=== PATIENT | male | born 1960 | race Asian ===

== ENCOUNTER 2024-04-06 15:41 | Outpatient (AMB) | payer OTHER, SELFPAY ==
--- NOTE | 2024-04-06 15:59 | HO.NEPHOV_ITS ---
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 He had seen oncologist in [facility] as well as in [facility] and [facility] in [place]. He has been getting daratumumab. He has had various investigations including cardiac MRI which was suggestive of early amyloidosis but with preserved biventricular function by echo and cardiac MRI. He was evaluated for stem cell transplant but has been put on hold for now. He has noted a decrease in exercise capacity through the course of his treatment with chemotherapy. He was started on lisinopril by his system admin. He had no regional wall motion abnormalities. His left ventricular ejection fraction was 60-65%. His left ventricular systolic function and right ventricular systolic f unction was normal. His left atrium was mildly dilated. There was mild dilation of the ascending aorta measuring 39 mm in the tubular section which may be normal for patient's height. He underwent a renal biopsy which showed renal amyloidosis, AL type, lambda phenotype. Diffuse amyloid deposits in glomeruli and renal arteries/ arterioles and focally in interstitium. Global glomerulosclerosis was present in 15% of total glomeruli. He had mild to moderate interstitial fibrosis and tubular atrophy. Electron microscopy showed normal based membrane. There was global effacement of foot process. Endothelial fenestration were preserved. Mesangial matrix was expanded by mildly electron dense material showing randomly arranged fibrillary substructure. Multiple measurements of the fibril widths average to 7.5 nanometer was consistent with amyloid. He had nephrotic range proteinuria. He did not have any neuropathy. He was treated with Luanne CyBord per Andromeda study. His Cytoxan dose was reduced by 20% for fatigue and anemia. His Velcade was held for question of neuropathy/ myopathy. His stem cell collection was done at [facility]( Dr Gonzalez). He had proximal myopathy and underwent skeletal muscle biopsy which showed amyloid. He had been having anemia and receives Retacrit on a regular basis. He is feeling better compared to 6 months ago. He denies any chest pain, shortness of breath, paroxysmal nocturnal dyspnea, orthopnea, pedal edema or urinary symptoms. He also had COVID infection a while ago.. His last kappa lambda ratio was 1.66. His urine protein creatinine ratio had improved to 0.16 from over 2 g. He is concerned about his reduced GFR under the same time he feels content with stability of his creatinine clearance. [facility] Medical History (Updated 04/08/24 @ 08:24 by Yves Navarrete MD) Cervical spondylosis without myelopathy Neuropathic pain Sciatica Thalassanemia Vitamin D deficiency Anemia Hallux valgus History of tear of ACL (anterior cruciate ligament) Osteoarthritis of both knees Venous insufficiency Hyperlipidemia Edema Upper respiratory tract infection Surgical History (Updated 04/06/24 @ 16:05 by Cassie Cody MA) H/O repair of rotator cuff History of knee surgery Social History (Updated 04/06/24 @ 16:06 by Cassie Cody MA) Alcohol intake: never Patient Tobacco Use Status: Never used Tobacco Review of Systems Const All systems reviewed & are unremarkable except as noted in HPI and below Physical Exam Vital Signs: Last Vital Signs Pulse 65 04/06/24 16:01 BP 140/90 H 04/06/24 16:01 Pulse Ox 99 04/06/24 16:01 Oxygen Delivery Method Room Air 04/06/24 16:01 BMI result Body Mass Index 25.2 Const General: comfortable and no acute distress Orientation/consciousness: patient oriented x3 HEENT Head: Yes normocephalic Mouth: Normal oral and palatal mucosa present Eyes EOM: EOMs intact bilaterally Neck Neck: Yes supple Resp Auscultation: clear to auscultation bilaterally Cardio Jugular venous distension: no JVD Rate: regular rate GI Palpation (GI): Soft to palpation Auscultation: normal bowel sounds General: Yes no CVA tenderness Back/Spine/Pelvis Back: no CVA tenderness Skin General skin exam: no rashes or lesions noted Neuro General: patient oriented x3 and moves all extremities Extrem General: Yes no pedal edema Results Reviewed Nephrology Results: 2 No Data to Display Assessment & Plan Assessment & Plan (1) AL amyloid nephropathy: Code(s): E85.4 - Organ-limited amyloidosis; N08 - Glomerular disorders in diseases classified elsewhere Category: Medical (2) CKD (chronic kidney disease) stage 3, GFR 30-59 ml/min: Code(s): N18.30 - Chronic kidney disease, stage 3 unspecified Category: Medical Qualifiers: Chronic kidney disease stage 3 subtype: stage 3b (GFR 30-44) Qualified Code(s): N18.32 - Chronic kidney disease, stage 3b (3) Anemia in chronic kidney disease (CKD): Code(s): N18.9 - Chronic kidney disease, unspecified; D63.1 - Anemia in chronic kidney d isease Category: Medical Qualifiers: Chronic kidney disease stage: stage 3 (moderate) Chronic kidney disease stage 3 subtype: stage 3b (GFR 30-44) Qualified Code(s): N18.32 - Chronic kidney disease, stage 3b; D63.1 - Anemia in chronic kidney disease Plan He has CKD due to renal biopsy proven AL amyloid (lambda phenotype) . He has been getting daratumumab. He was evaluated for stem cell transplant but has been put on hold for now. His stem cell collection was done at [facility]( Dr Gonzalez). He is on lisinopril which I asked him to continue at the current dose. He had no regional wall motion abnormalities in the ECHO. His left ventricular ejection fraction was 60-65%. His left ventricular systolic function and right ventricular systolic function was normal. ( Renal biopsy showed Diffuse amyloid deposits in glomeruli and renal arteries/ arterioles and focally in interstitium. Global glomerulosclerosis was present in 15% of total glomeruli. He had mild to moderate interstitial fibrosis and tubular atrophy. Electron microscopy showed normal based membrane. There was global effacement of foot process. Endothelial fenestration were preserved. Mesangial matrix was expanded by mildly electron dense material showing randomly arranged fibrillary substructure. Multiple measurements of the fibril widths average to 7.5 nanometer was consistent with amyloid). He had nephrotic range proteinuria which has improved with supportive management. (He was treated with Luanne CyBord per Andromeda study. His Cytoxan dose was reduced by 20% for fatigue and anemia. His Velcade was held for question of neuropathy/ myopathy). He had proximal myopathy and underwent skeletal muscle biopsy which showed amyloid. He had been having anemia and receives Retacrit on a regular basis from his oncologist. I did not make any medication changes today. I shall do a 24 hour urine collection for creatinine clearance after next visit. All these have been explained in detail. Time spent retrieving data from various hospitals patient encounter and documentation 61 minutes. Answered all questions & follow-up appointment was given Coding Level of Care Code New Pt Level 5 (36142) Diagnoses AL amyloid nephropathy E85.4; N08 Stage 3b chronic kidney disease N18.32 Chronic kidney disease stage 3 subtype: stage 3b (GFR 30-44) Anemia in stage 3b chronic kidney disease N18.32; D63.1 Chronic kidney disease stage: stage 3 (moderate) Chronic kidney disease stage 3 subtype: stage 3b (GFR 30-44)
[2024-04-06 16:01] VITALS: BP 140/90; PULSE 65; O2SAT 99; BMI 25.2
== END 2024-04-06 17:03 | disposition home or self-care (01) ==
PROVIDERS: PCP Internal Medicine; Visit Provider Internal Medicine Nephrology
DX: E85.4 Organ-limited amyloidosis (principal); N08 Glomerular disorders in diseases classified elsewhere; N18.32 Chronic kidney disease, stage 3b; D63.1 Anemia in chronic kidney disease
CPT/HCPCS: 99205

== ENCOUNTER → 2024-04-06 15:41 | Outpatient (BNVA) | payer OTHER, SELFPAY | PROVIDERS: PCP Internal Medicine; Visit Provider Internal Medicine Nephrology ==

== ENCOUNTER 2024-07-06 13:50 | Outpatient (AMB) | payer OTHER, SELFPAY ==
[2024-07-06 13:55] VITALS: BP 168/90; PULSE 68; O2SAT 99; BMI 25.4
--- NOTE | 2024-07-06 13:55 | HO.NEPHOV_ITS ---
Vital Signs 07/06/24 13:55 Height 6 ft Weight 187 lb BMI 25.4 BP 168/90 H Blood Pressure Location Lt brachial Position Sitting Pulse 68 Pulse Source Pulse Oximeter Pulse Oximetry (%) 99 Oxygen Delivery Method Room Air Intake Visit Reasons: 3 mon follow up- [place] [employer] Required: No Accompanied by: Self / Same As Patient Allergies bacitracin Allergy (Verified 07/06/24 13:57) Unknown olopatadine Allergy (Verified 07/06/24 13:57) Unknown potassium dichromate Allergy (Uncoded 04/05/24 14:55) Unknown HPI Comments Details: I had the privilege of seeing Alo in follow up for his kidney involvement with AL amyloidosis. He had seen oncologist in [facility] as well as in [facility] and [facility] in [place]. He has been getting daratumumab. He has had various investigations including cardiac MRI which was suggestive of early amyloidosis but with preserved biventricular function by echo and cardiac MRI. He was evaluated for stem cell transplant but has been put on hold for now. He has noted a decrease in exercise capacity through the course of his treatment with chemotherapy. 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 He had no regional wall motion abnormalities. His left ventricular ejection fraction was 60-65%. His left ventricular systolic function and right ventricular systolic function was normal. His left atrium was mildly dilated. There was mild dilation of the ascending aorta measuring 39 mm in the tubular section which may be normal for patient's height. He underwent a renal biopsy which showed renal amyloidosis, AL type, lambda phenotype. Diffuse amyloid deposits in glomeruli and renal arteries/ arterioles and focally in interstitium. Global glomerulosclerosis was present in 15% of total glomeruli. He had mild to moderate interstitial fibrosis and tubular atrophy. Electron microscopy showed normal based membrane. There was global effacement of foot process. Endothelial fenestration were preserved. Mesangial matrix was expanded by mildly electron dense material showing randomly arranged fibrillary substructu re. Multiple measurements of the fibril widths average to 7.5 nanometer was consistent with amyloid. He had nephrotic range proteinuria. He did not have any neuropathy. He was treated with Luanne CyBord per Andromeda study. His Cytoxan dose was reduced by 20% for fatigue and anemia. His Velcade was held for question of neuropathy/ myopathy. His stem cell collection was done at [facility]( Dr Gonzalez). He had proximal myopathy and underwent skeletal muscle biopsy which showed amyloid. He had been having anemia and receives Retacrit on a regular basis. He is feeling better compared to 6 months ago. He denies any chest pain, shortness of breath, paroxysmal nocturnal dyspnea, orthopnea, pedal edema or urinary symptoms. He also had COVID infection a while ago.. His last kappa lambda ratio was 1.66. His urine protein creatinine ratio had improved to 0.16 from over 2 g. His creatinine has been stable. His Na has been fluctuant. [facility] Medical History (Updated 07/06/24 @ 14:23 by Yves Navarrete MD) Cervical spondylosis without myelopathy Neuropathic pain Sciatica Thalassanemia Vitamin D deficiency Anemia Hallux valgus History of tear of ACL (anterior cruciate ligament) Osteoarthritis of both knees Venous insufficiency Hyperlipidemia Edema Upper respiratory tract infection Surgical History H/O repair of rotator cuff History of knee surgery Social History Alcohol intake: never Patient Tobacco Use Status: Never used Tobacco Physical Exam Vital Signs: Last Vital Signs Pulse 68 07/06/24 13:55 BP 168/90 H 07/06/24 13:55 Pulse Ox 99 07/06/24 13:55 Oxygen Delivery Method Room Air 07/06/24 13:55 BMI result Body Mass Index 25.4 Const General: comfortable and no acute distress Orientation/consciousness: patient oriented x3 HEENT Head: Yes normocephalic Mouth: Normal oral and palatal mucosa present Eyes EOM: EOMs intact bilaterally Neck Neck: Yes supple Resp Auscultation: clear to auscultation bilaterally Cardio Jugular venous distension: no JVD Rate: regular rate GI Palpation (GI): Soft to palpation Auscultation: normal bowel sounds General: Yes no CVA tenderness Back/Spine/Pelvis Back: no CVA tenderness Skin General skin exam: no rashes or lesions noted Neuro General: patient oriented x3 and moves all extremities Extrem General: Yes no pedal edema Results Reviewed Nephrology Results: No Data to Display Assessment & Plan Assessment & Plan (1) CKD (chronic kidney disease) stage 3, GFR 30-59 ml/min: Code(s): N18.30 - Chronic kidney disease, stage 3 unspecified Category: Medical Qualifiers: Chronic kidney disease stage 3 subtype: stage 3b (GFR 30-44) Qualified Code(s): N18.32 - Chronic kidney disease, stage 3b (2) Anemia in chronic kidney disease (CKD): Code(s): N18.9 - Chronic kidney disease, unspecified; D63.1 - Anemia in chronic kidney disease Category: Medical Qualifiers: Chronic kidney disease stage: stage 3 (moderate) Chronic kidney disease stage 3 subtype: stage 3b (GFR 30-44) Qualified Code(s): N18.32 - Chronic kidney disease, stage 3b; D63.1 - Anemia in chronic kidney disease (3) AL amyloid nephropathy: Code(s): E85.4 - Organ-limited amyloidosis; N08 - Glomerular disorders in diseases classified elsewhere Category: Medical (4) Hypertension: Code(s): I10 - Essential (primary) hypertension Category: Medical Qualifiers: Hypertension type: primary hypertension Qualified Code(s): I10 - Essential (primary) hypertension Plan He has CKD due to renal biopsy proven AL amyloid (lambda phenotype) . He has been getting daratumumab. He was evaluated for stem cell transplant but has been put on hold for now. His stem cell collection was done at [facility]( Dr Gonzalez). He is on lisinopril which I asked him to continue at the current dose. He had no regional wall motion abnormalities in the ECHO. His left ventricular ejection fraction was 60-65%. His left ventricular systolic function and right ventricular systolic function was normal. ( Renal biopsy showed Diffuse amyloid deposits in glomeruli and renal arteries/ arterioles and focally in interstitium. Global glomerulosclerosis was present in 15% of total glomeruli. He had mild to moderate interstitial fibrosis and tubular atrophy. Electron microscopy showed normal based membrane. There was global effacement of foot process. Endothelial fenestration were preserved. Mesangial matrix was expanded by mildly electron dense material showing randomly arranged fibrillary substructure. Multiple measurements of the fibril widths average to 7.5 nanometer was consistent with amyloid). He had nephrotic range proteinuria which has improved with supportive management. (He was treated with Luanne CyBord per Andromeda study. His Cytoxan dose was reduced by 20% for fatigue and anemia. His Velcade was held for question of neuropathy/ myopathy). He had proximal myopathy and underwent skeletal muscle biopsy which showed amyloid. He had been having anemia and receives Retacrit on a regular basis from his oncologist. I increased his lisinopril to 15 mg daily. I shall do a 24 hour urine collection for creatinine clearance after next visit. All these have been explained in detail. Answered all questions & follow-up appointment was given Orders: Orders Creatinine Today D63.1 - Anemia in chronic kidney disease, E85.4 - Organ- limited amyloidosis, I10 - Essential (primary) hypertension, N08 - Glomerular disorders in diseases classified elsewhere, N18.32 - Chronic kidney disease, stage 3b Blood Urea Nitrogen Today D63.1 - Anemia in chronic kidney disease, E85.4 - Organ-limited amyloidosis, I10 - Essential (primary) hypertension, N08 - Glomerular disorders in diseases classified elsewhere, N18.32 - Chronic kidney disease, stage 3b Electrolytes Today D63.1 - Anemia in chronic kidney disease, E85.4 - Organ- limited amyloidosis, I10 - Essential (primary) hypertension, N08 - Glomerular disorders in diseases classified elsewhere, N18.32 - Chronic kidney disease, stage 3b Medications: Changed From lisinopril 5 mg PO DAILY To lisinopril 15 mg (3 x 5 mg) PO DAILY 90 tabs 3RF Coding Level of Care Code Est Pt Level 4 (27793) Diagnoses Stage 3b chronic kidney disease N18.32 Chronic kidney disease stage 3 subtype: stage 3b (GFR 30-44) Anemia in stage 3b chronic kidney disease N18.32; D63.1 Chronic kidney disease stage: stage 3 (moderate) Chronic kidney disease stage 3 subtype: stage 3b (GFR 30-44) AL amyloid nephropathy E85.4; N08 Primary hypertension I10 Hypertension type: primary hypertension
== END 2024-07-06 14:29 | disposition home or self-care (01) ==
PROVIDERS: PCP Internal Medicine; Visit Provider Internal Medicine Nephrology
DX: N18.32 Chronic kidney disease, stage 3b (principal); D63.1 Anemia in chronic kidney disease; E85.4 Organ-limited amyloidosis; N08 Glomerular disorders in diseases classified elsewhere; I10 Essential (primary) hypertension
CPT/HCPCS: 99214

== ENCOUNTER → 2024-07-06 13:50 | Outpatient (BNVA) | payer OTHER, SELFPAY | PROVIDERS: PCP Internal Medicine; Visit Provider Internal Medicine Nephrology ==

== ENCOUNTER 2024-08-24 13:59 | Outpatient (AMB) | payer OTHER, SELFPAY ==
--- NOTE | 2024-08-24 14:26 | HO.NEPHOV_ITS ---
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 He had seen oncologist in [facility] as well as in [facility] and [facility] in [place]. He has been getting daratumumab. He has had various investigations including cardiac MRI which was suggestive of early amyloidosis but with preserved biventricular function by echo and cardiac MRI. He was evaluated for stem cell transplant but has been put on hold for now. He has noted a decrease in exercise capacity through the course of his treatment with chemotherapy. He was started on lisinopril by his mechanical engineering manager. He had no regional wall motion abnormalities. His left ventricular ejection fraction was 60-65%. His left ventricular systolic function and right ventricular systolic function was normal. His left atrium was mildly dilated. There was mild dilation of the ascending aorta measuring 39 mm in the tubular section which may be normal for patient's height. He underwent a renal biopsy which showed renal amyloidosis, AL type, lambda phenotype. Diffuse amyloid deposits in glomeruli and renal arteries/ arterioles and focally in interstitium. Global glomerulosclerosis was present in 15% of total glomeruli. He had mild to moderate interstitial fibrosis and tubular atrophy. Electron microscopy showed normal based membrane. There was global effacement of foot process. Endothelial fenestration were preserved. Mesangial matrix was expanded by mildly electron dense material showing randomly arranged fibrillary substructure. Multiple measurements of the fibril widths average to 7.5 nanometer was consistent with amyloid. He had nephrotic range proteinuria. He did not have any neuropathy. He was treated with Luanne CyBord per Andromeda study. His Cytoxan dose was reduced by 20% for fatigue and anemia. His Velcade was held for question of neuropathy/ myopathy. His stem cell collection was done at [facility]( Dr Gonzalez). He had proximal myopathy and underwent skeletal muscle biopsy which showed amyloid. He had been having anemia and receives Retacrit on a regular basis. He is feeling better compared to 6 months ago. He denies any chest pain, shortness of breath, paroxysmal nocturnal dyspnea, orthopnea, pedal edema or urinary symptoms. He also had COVID infection a while ago.. His last kappa lambda ratio was 1.66. His urine protein creatinine ratio had improved to 0.16 from over 2 g. His creatinine has been stable. His Na has been fluctuant. [facility] Medical History (Updated 07/06/24 @ 14:23 by Yves Navarrete MD) Cervical spondylosis without myelopathy Neuropathic pain Sciatica Thalassanemia Vitamin D deficiency Anemia Hallux valgus History of tear of ACL (anterior cruciate ligament) Osteoarthritis of both knees Venous insufficiency Hyperlipidemia Edema Upper respiratory tract infection Surgical History H/O repair of rotator cuff History of knee surgery Social History Alcohol intake: never Patient Tobacco Use Status: Never used Tobacco Review of Systems Const All systems reviewed & are unremarkable except as noted in HPI and below Physical Exam Vital Signs: Last Vital Signs Pulse 70 08/24/24 14:27 BP 140/78 H 08/24/24 14:27 Pulse Ox 99 08/24/24 14:27 Oxygen Delivery Method Room Air 08/24/24 14:27 BMI result Body Mass Index 25.0 Const General: comfortable and no acute distress Orientation/consciousness: patient oriented x3 HEENT Head: Yes normocephalic Mouth: Normal oral and palatal mucosa present Eyes EOM: EOMs intact bilaterally Neck Neck: Yes supple Resp Auscultation: clear to auscultation bilaterally Cardio Jugular venous distension: no JVD Rate: regular rate GI Palpation (GI): Soft to palpation Auscultation: normal bowel sounds General: Yes no CVA tenderness Back/Spine/Pelvis Back: no CVA tenderness Skin General skin exam: no rashes or lesions noted Neuro General: patient oriented x3 and moves all extremities Extrem General: Yes no pedal edema Results Reviewed Nephrology Results: No Data to Display Assessment & Plan Assessment & Plan (1) CKD (chronic kidney disease) stage 3, GFR 30-59 ml/min: Code(s): N18.30 - Chronic kidney disease, stage 3 unspecified Category: Medical Qualifiers: Chronic kidney disease stage 3 subtype: stage 3b (GFR 30-44) Qualified Code(s): N18.32 - Chronic kidney disease, stage 3b (2) AL amyloid nephropathy: Code(s): E85.4 - Organ-limited amyloidosis; N08 - Glomerular disorders in diseases classified elsewhere Category: Medical (3) Anemia in chronic kidney disease (CKD): Code(s): N18.9 - Chronic kidney disease, unspecified; D63.1 - Anemia in chronic kidney disease Category: Medical Qualifiers: Chronic kidney disease stage: stage 3 (moderate) Chronic kidney disease stage 3 subtype: stage 3b (GFR 30-44) Qualified Code(s): N18.32 - Chronic kidney disease, stage 3b; D63.1 - Anemia in chronic kidney disease (4) Hypertension: Code(s): I10 - Essential (primary) hypertension Category: Medical Qualifiers: Hypertension type: primary hypertension Qualified Code(s): I10 - Essential (primary) hypertension Plan He has CKD due to renal biopsy proven AL amyloid (lambda phenotype) . He has been getting daratumumab. He was evaluated for stem cell transplant but has been put on hold for now. His stem cell collection was done at [facility]( Dr Gonzalez). He is on lisinopril which I asked him to continue at the current dose. He had no regional wall motion abnormalities in the ECHO. His left ventricular ejection fraction was 60-65%. His left ventricular systolic function and right ventricular systolic function was normal. ( Renal biopsy showed Diffuse amyloid deposits in glomeruli and renal arteries/ arterioles and focally in interstitium. Global glomerulosclerosis was present in 15% of total glomeruli. He had mild to moderate interstitial fibrosis and tubular atrophy. Electron microscopy showed normal based membrane. There was global effacement of foot process. Endothelial fenestration were preserved. Mesangial matrix was expanded by mildly electron dense material showing randomly arranged fibrillary substructure. Multiple measurements of the fibril widths average to 7.5 nanometer was consistent with amyloid). He had nephrotic range proteinuria which has improved with supportive management. (He was treated with Luanne CyBord per Andromeda study. His Cytoxan dose was reduced by 20% for fatigue and anemia. His Velcade was held for question of neuropathy/ myopathy). He had proximal myopathy and underwent skeletal muscle biopsy which showed amyloid. He had been having anemia and receives Retacrit on a regular basis from his oncologist. He should continue lisinopril 15 mg daily. He is a candidate for [facility]. I shall do a 24 hour urine collection for creatinine clearance after next visit. All these have been explained in detail. Answered all questions & follow-up appointment was given Orders: Orders Blood Urea Nitrogen 3 Months D63.1 - Anemia in chronic kidney disease, E85.4 - Organ-limited amyloidosis, I10 - Essential (primary) hypertension, N08 - Glomerular disorders in diseases classified elsewhere, N18.32 - Chronic kidney disease, stage 3b Electrolytes 3 Months D63.1 - Anemia in chronic kidney disease, E85.4 - Organ- limited amyloidosis, I10 - Essential (primary) hypertension, N08 - Glomerular disorders in diseases classified elsewhere, N18.32 - Chronic kidney disease, stage 3b Calcium 3 Months D63.1 - Anemia in chronic kidney disease, E85.4 - Organ- limited amyloidosis, I10 - Essential (primary) hypertension, N08 - Glomerular disorders in diseases classified elsewhere, N18.32 - Chronic kidney disease, stage 3b Creatinine 3 Months D63.1 - Anemia in chronic kidney disease, E85.4 - Organ- limited amyloidosis, I10 - Essential (primary) hypertension, N08 - Glomerular disorders in diseases classified elsewhere, N18.32 - Chronic kidney disease, stage 3b Coding Level of Care Code Est Pt Level 4 (02055) Diagnoses Stage 3b chronic kidney disease N18.32 Chronic kidney disease stage 3 subtype: stage 3b (GFR 30-44) AL amyloid nephropathy E85.4; N08 Anemia in stage 3b chronic kidney disease N18.32; D63.1 Chronic kidney disease stage: stage 3 (moderate) Chronic kidney disease stage 3 subtype: stage 3b (GFR 30-44) Primary hypertension I10 Hypertension type: primary hypertension
[2024-08-24 14:27] VITALS: BP 140/78; PULSE 70; O2SAT 99; BMI 25.0
== END 2024-08-24 15:00 | disposition home or self-care (01) ==
LOC: HO.HKAS 14:00
PROVIDERS: PCP Internal Medicine; Visit Provider Internal Medicine Nephrology
DX: N18.32 Chronic kidney disease, stage 3b (principal); E85.4 Organ-limited amyloidosis; N08 Glomerular disorders in diseases classified elsewhere; D63.1 Anemia in chronic kidney disease; I10 Essential (primary) hypertension
CPT/HCPCS: 99214

== ENCOUNTER → 2024-08-24 13:59 | Outpatient (BNVA) | payer OTHER, SELFPAY | PROVIDERS: PCP Internal Medicine; Visit Provider Internal Medicine Nephrology ==

== ENCOUNTER 2024-11-30 13:26 | Outpatient (AMB) | payer OTHER, SELFPAY ==
--- NOTE | 2024-11-30 13:28 | HO.NEPHOV_ITS ---
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 He had seen oncologist in [facility] as well as in [facility] and [facility] in [place]. He has been getting daratumumab. He has had various investigations including cardiac MRI which was suggestive of early amyloidosis but with preserved biventricular function by echo and cardiac MRI. He was evaluated for stem cell transplant but has been put on hold for now. He has noted a decrease in exercise capacity through the course of his treatment with chemotherapy. He has been on lisinopril started by his hub associate. He had no regional wall motion abnormalities. His left ventricular ejection fraction was 60-65%. His left ventricular systolic function and right ventricular systolic function was normal. His left atrium was mildly dilated. There was mild dilation of the ascending aorta measuring 39 mm in the tubular section which may be normal for patient's height. He underwent a renal biopsy which showed renal amyloidosis, AL type, lambda phenotype. Diffuse amyloid deposits in glomeruli and renal arteries/ arterioles and focally in interstitium. Global glomerulosclerosis was present in 15% of total glomeruli. He had mild to moderate interstitial fibrosis and tubular atrophy. Electron microscopy showed normal based membrane. There was global effacement of foot process. Endothelial fenestration were preserved. Mesangial matrix was expanded by mildly electron dense material showing randomly arranged fibrillary substructure. Multiple measurements of the fibril widths average to 7.5 nanometer was consistent with amyloid. He had nephrotic range proteinuria. He did not have any neuropathy. He was treated with Luanne CyBord per Andromeda study. His Cytoxan dose was reduced by 20% for fatigue and anemia. His Velcade was held for question of neuropathy/ myopathy. His stem cell collection was done at [facility]( Dr Gonzalez). He had proximal myopathy and underwent skeletal muscle biopsy which showed amyloid. He had been having anemia and receives Retacrit on a regular basis. He is feeling better compared to 6 months ago. He denies any chest pain, shortness of breath, paroxysmal nocturnal dyspnea, orthopnea, pedal edema or urinary symptoms. He also had COVID infection a while ago.. His last kappa lambda ratio was 1.66. His urine protein creatinine ratio had improved to 0.16 from over 2 g. His creatinine has been stable. His Na has been fluctuant. [facility] Medical History (Updated 11/30/24 @ 13:30 by Yves Navarrete MD) Cervical spondylosis without myelopathy Neuropathic pain Sciatica Thalassanemia Vitamin D deficiency Anemia Hallux valgus History of tear of ACL (anterior cruciate ligament) Osteoarthritis of both knees Venous insufficiency Hyperlipidemia Edema Upper respiratory tract infection Surgical History H/O repair of rotator cuff History of knee surgery Social History Alcohol intake: never Patient Tobacco Use Status: Never used Tobacco Review of Systems Const All systems reviewed & are unremarkable except as noted in HPI and below Physical Exam Const General: comfortable and no acute distress Orientation/consciousness: patient oriented x3 HEENT Head: Yes normocephalic Mouth: Normal oral and palatal mucosa present Eyes EOM: EOMs intact bilaterally Neck Neck: Yes supple Resp Auscultation: clear to auscultation bilaterally Cardio Jugular venous distension: no JVD Rate: regular rate GI Palpation (GI): Soft to palpation Auscultation: normal bowel sounds General: Yes no CVA tenderness Back/Spine/Pelvis Back: no CVA tenderness Skin General skin exam: no rashes or lesions noted Neuro General: patient oriented x3 and moves all extremities Extrem General: Yes no pedal edema Results Reviewed Nephrology Results: No Data to Display Assessment & Plan Assessment & Plan (1) CKD (chronic kidney disease) stage 3, GFR 30-59 ml/min: Code(s): N18.30 - Chronic kidney disease, stage 3 unspecified Category: Medical Qualifiers: Chronic kidney disease stage 3 subtype: stage 3b (GFR 30-44) Qualified Code(s): N18.32 - Chronic kidney disease, stage 3b (2) AL amyloid nephropathy: Code(s): E85.4 - Organ-limited amyloidosis; N08 - Glomerular disorders in diseases classified elsewhere Category: Medical (3) Anemia in chronic kidney disease (CKD): Code(s): N18.9 - Chronic kidney disease, unspecified; D63.1 - Anemia in chronic kidney disease Category: Medical Qualifiers: Chronic kidney disease stage: stage 3 (moderate) Chronic kidney disease stage 3 subtype: stage 3b (GFR 30-44) Qualified Code(s): N18.32 - Chronic kidney disease, stage 3b; D63.1 - Anemia in chronic kidney disease (4) Hypertension: Code(s): I10 - Essential (primary) hypertension Category: Medical Qualifiers: Hypertension type: primary hypertension Qualified Code(s): I10 - Essential (primary) hypertension (5) Hyponatremia: Code(s): E87.1 - Hypo-osmolality and hyponatremia Category: Medical Plan He has CKD due to renal biopsy proven AL amyloid (lambda phenotype) . He has been getting daratumumab. He was evaluated for stem cell transplant but has been put on hold for now. His stem cell collection was done at [facility]( Dr Gonzalez). He is on lisinopril which I asked him to continue at the current dose. He had no regional wall motion abnormalities in the ECHO. His left missy tricular ejection fraction was 60-65%. His left ventricular systolic function and right ventricular systolic function was normal. ( Renal biopsy showed Diffuse amyloid deposits in glomeruli and renal arteries/ arterioles and focally in interstitium. Global glomerulosclerosis was present in 15% of total glomeruli. He had mild to moderate interstitial fibrosis and tubular atrophy. Electron microscopy showed normal based membrane. There was global effacement of foot process. Endothelial fenestration were preserved. Mesangial matrix was expanded by mildly electron dense material showing randomly arranged fibrillary substructure. Multiple measurements of the fibril widths average to 7.5 nanometer was consistent with amyloid). He had nephrotic range proteinuria which has improved with supportive management. (He was treated with Luanne CyBord per Andromeda study. His Cytoxan dose was reduced by 20% for fatigue and anemia. His Velcade was held for question of neuropathy/ myopathy). He had proximal myopathy and underwent skeletal muscle biopsy which showed amyloid. He had been having anemia and receives Retacrit on a regular basis from his oncologist. He should continue lisinopril 15 mg daily. He is a candidate for [employer]. I shall do a 24 hour urine collection for creatinine clearance before next visit. All these have been explained in detail. Answered all questions & f ollow-up appointment was given Orders: Orders Creatinine 1 Month D63.1 - Anemia in chronic kidney disease, E85.4 - Organ- limited amyloidosis, E87.1 - Hypo-osmolality and hyponatremia, I10 - Essential (primary) hypertension, N08 - Glomerular disorders in diseases classified elsewhere, N18.32 - Chronic kidney disease, stage 3b Electrolytes 1 Month D63.1 - Anemia in chronic kidney disease, E85.4 - Organ- limited amyloidosis, E87.1 - Hypo-osmolality and hyponatremia, I10 - Essential (primary) hypertension, N08 - Glomerular disorders in diseases classified elsewhere, N18.32 - Chronic kidney disease, stage 3b Creatinine 2 Months D63.1 - Anemia in chronic kidney disease, E85.4 - Organ- limited amyloidosis, E87.1 - Hypo-osmolality and hyponatremia, I10 - Essential (primary) hypertension, N08 - Glomerular disorders in diseases classified elsewhere, N18.32 - Chronic kidney disease, stage 3b Electrolytes 2 Months D63.1 - Anemia in chronic kidney disease, E85.4 - Organ- limited amyloidosis, E87.1 - Hypo-osmolality and hyponatremia, I10 - Essential (primary) hypertension, N08 - Glomerular disorders in diseases classified elsewhere, N18.32 - Chronic kidney disease, stage 3b Electrolytes 3 Months D63.1 - Anemia in chronic kidney disease, E85.4 - Organ- limited amyloidosis, E87.1 - Hypo-osmolality and hyponatremia, I10 - Essential (primary) hypertension, N08 - Glomerular disorders in diseases classified elsewhere, N18.32 - Chronic kidney disease, stage 3b Creatinine 3 Months D63.1 - Anemia in chronic kidney disease, E85.4 - Organ- limited amyloidosis, E87.1 - Hypo-osmolality and hyponatremia, I10 - Essential (primary) hypertension, N08 - Glomerular disorders in diseases classified elsewhere, N18.32 - Chronic kidney disease, stage 3b Creatinine Clearance Urine 24U 3 Months N18.32 - Chronic kidney disease, stage 3b Blood Urea Nitrogen 1 Month D63.1 - Anemia in chronic kidney disease, E85.4 - Organ-limited amyloidosis, E87.1 - Hypo-osmolality and hyponatremia, I10 - Essential (primary) hypertension, N08 - Glomerular disorders in diseases classified elsewhere, N18.32 - Chronic kidney disease, stage 3b Blood Urea Nitrogen 2 Months D63.1 - Anemia in chronic kidney disease, E85.4 - Organ-limited amyloidosis, E87.1 - Hypo-osmolality and hyponatremia, I10 - Essential (primary) hypertension, N08 - Glomerular disorders in diseases classified elsewhere, N18.32 - Chronic kidney disease, stage 3b Blood Urea Nitrogen 3 Months D63.1 - Anemia in chronic kidney disease, E85.4 - Organ-limited amyloidosis, E87.1 - Hypo-osmolality and hyponatremia, I10 - Essential (primary) hypertension, N08 - Glomerular disorders in diseases classified elsewhere, N18.32 - Chronic kidney disease, stage 3b Coding Level of Care Code Est Pt Level 4 (29269) Diagnoses Stage 3b chronic kidney disease N18.32 Chronic kidney disease stage 3 subtype: stage 3b (GFR 30-44) AL amyloid nephropathy E85.4; N08 Anemia in stage 3b chronic kidney disease N18.32; D63.1 Chronic kidney disease stage: stage 3 (moderate) Chronic kidney disease stage 3 subtype: stage 3b (GFR 30-44) Primary hypertension I10 Hypertension type: primary hypertension Hyponatremia E87.1
[2024-11-30 13:38] VITALS: BP 120/70; PULSE 66; O2SAT 97; BMI 25.4
--- OUTSIDE RECORDS SUMMARY | 2024-11-30 13:38 | XMS_ITS | Encounter Summary ---
Author Organization [facility] Address [address] [place] [address] Care Team Providers Care Manufacturing Engineer Name Role Phone Boris Tyson MD Primary Care Provider [phone] Reason for Visit * Reason Comments Hip Pain Left hip Encounter Details Date Type Department Care Team ([facility] st Contact Info) Description 11/23/2024 1:30 PM EST Office Visit Internal Medicine - Tram [address] [facility] [address] [place] [address] Boris Tyson MD [address] [facility] [address] [place] [address] Fall, initial encounter (Primary Dx); Hematoma of left buttock Social History Tobacco Use Types Packs/Day Years Used Date Smoking Tobacco: Never Smokeless Tobacco: Never Alcohol Use Standard Drinks/Week Comments Yes 1 (1 standard drink = 0.6 oz pur e alcohol) Housing Instability Answer Date Recorde d Are you worried that in the next 2 months you may not have stable housing? No 10/25/2024 Food Access & Nutrition Answer Date Rec orded Do you have access to a vari ety of food including fruits and vegetables? Yes 10/25/2024 Access to Healthcare Answer Date Record ed Within the last 3 months, ho w many times did you visit the emergency department for your medical care? 0 10/25/2024 Health Literacy Answer Date Recorded How often do you need to hav e someone help you when you read instructions, pamphlets, or other written material from your doctor or pharmacy? Never 10/25/2024 Caregiver: How often do you need to have someone help you when you read instructions, pamphlets, or other written material from your doctor or pharmacy? Not on file 10/25/2024 Financial Risk Answer Date Recorded How hard is it for you to pa y for the very basics like food, housing, medical care, and air conditioning / heating? Not very hard 10/25/2024 Transportation Answer Date Recorded Has the lack of transportati on kept you from meetings, work, or from getting things needed for daily living? No Has the lack of transportati on kept you from medical appointments or from getting medications? No 10/25/2024 Social Isolation Answer Date Recorded How often do you feel lonely or isolated from th ose around you? Rarely 10/25/2024 Food Risk Answer Date Recorded Within the past 12 months we worried whether our food would run out before we got money to buy more. Never true 10/25/2024 Within the past 12 months th e food we bought just didn't last and we didn't have money to get more. Never true 10/25/2024 Dependent Care Answer Date Recorded Do you need help finding or paying for care for your loved ones. For example, child and family services specialist or elderly care for an older adult? No 10/25/2024 Education Answer Date Recorded Do you think completing more education or training, like finishing a GED, going to college, or learning a trade, would be helpful for you? N/A 10/25/2024 Employment and Income Answer Date Recor ded During the last four weeks, have you been actively looking for work? No 10/25/2024 Living Situation Answer Date Recorded What is your living situation? 1 Sex and Gender Information Value Date Recorded Sex Assigned at Not on file Gender Identity Not on file Sexual Orientation Not on file Job Start Date Occupation Industry Not on file Not on file Not on file documented as of this encounter Last Filed Vital Signs Vital Sign Reading Time Taken Comments Blood Pressure 150/80 11/23/2024 1:45 PM EST Pulse 65 11/23/2024 1:45 PM EST Temperature 35.9 ??C (96.7 ??F) 11/23/2024 1:45 PM ES T Respiratory Rate - - Oxygen Saturation 99% 11/23/2024 1:45 PM EST Inhaled Oxygen Concentration - - Weight 84.8 kg (187 lb) 11/23/2024 1:45 PM EST Height - - Body Mass Index - - documented in this encounter Progress Notes * Boris Tyson MD - 11/23/2024 1:30 PM EST COMPLAINT status post fall IDENTIFIER: Alo Rogers is a 64 y.o. old male. HPI: Slipped on ice yesterday and hit the left buttock area. Some pain in that area and bruising noted. Able to walk. ROS: GENERAL: No malaise, significant weight loss or fever RESPIRATORY: No cough, wheezing or shortness of breath CARDIOVASCULAR: No chest pain, leg swelling or palpitations GI: No abdominal discomfort, blood in stools or black stools PAST MEDICAL HISTORY: Patient Active Problem List Diagnosis Date Noted Upper respiratory tract infection 05/28/2019 Edema 07/24/2018 Hyperlipidemia 07/24/2018 Venous insufficiency 07/24/2018 Osteoarthritis of both knees 05/01/2018 Anemia 04/03/2018 Hallux valgus 04/03/2018 Sciatica 04/03/2018 Thalassemia 04/03/2018 Vitamin D deficiency 04/03/2018 Neuropathic pain 11/02/2015 Cervical spondylosis without myelopathy 07/28/2015 Past Surgical History: Procedure Laterality Date KNEE SURGERY Right 2016 PROCEDURE: HISTORICAL KNEE SURGERY; COMMENT: ACL tear at [facility] SOCIAL HISTORY: Social History Tobacco Use Smoking status: Never Smokeless tobacco: Never Substance Use Topics Alcohol use: Yes Alcohol/week: 1.0 standard drink of alcohol FAMILY HISTORY: Family History Problem Relation Name Age of Onset Other (Other: allergic rhinitis) Mother Other (Other: allergic rhinitis) Father Asthma Sister Other (Other: allergic rhintiis) Sister MEDICATIONS DISCONTINUED/REORDERED: There are no discontinued medications. ACTIVE MEDICATIONS: Outpatient Medications Marked as Taking for the 11/23/24 encounter (Office Visit) with Boris Tyson MD Medication Sig Dispense Refill acyclovir (ZOVIRAX) 200 mg capsule Take 1 Capsule by mouth 2 times daily. bepotastine (Bepreve) 1.5 % drops APPLY 1 DROP TO THE EYE 2 TIMES DAILY. cetirizine (ZyrTEC) 10 mg tablet TAKE 1 TABLET BY MOUTH EVERY DAY IN THE EVENING clobetasoL 0.05 % shampoo Apply 1 Dose topically daily. Apply to dry scalp daily and lather in. Rinse after 5-10 minutes. Use consecutively for 2 weeks then decrease use to 3 times a week. DIETARY SUPPLEMENT ORAL Take by mouth daily. hydrocortisone 1 % topical cream APPLY A THIN LAYER TWICE DAILY FOR 7 DAYS. levocetirizine (XYZAL) 5 mg tablet Take 1 Tablet by mouth every evening. lisinopriL (PRINIVIL,ZESTRIL) 2.5 mg tablet Take 1 Tablet by mouth daily. omeprazole (PriLOSEC) [address] capsule Take 1 capsule (20 mg total) by mouth 2 (two) times a day. 180 capsule 1 tacrolimus (PROTOPIC) 0.1 % ointment APPLY TWICE A DAY TO AFFECTED AREAS FOR UP TO 6 WEEKS traMADol ER (ULTRAM-ER) 100 mg 24 hr tablet Take 1 Tablet by mouth daily. ALLERGIES: Allergies Allergen Reactions Bacitracin Positive patch testing Olopatadine Facial and eyelid itching and irritation Potassium Dichromate Positive patch testing PHYSICAL EXAM: Vitals: 11/23/24 1345 BP: (!) 150/80 Pulse: 65 Temp: 35.9 ??C (96.7 ??F) SpO2: 99% APPEARANCE: Alert and in no acute distress EARS: External ears normal. pain on palpation the left buttock area. LABS: No results found for: WBC , HGB , HCT , MCV No results found for: NA , K , CO2 , CL , BUN , GLU , ALB , ALKPHOS , TP No results found for: TSH Lab Results Component Value Date CHOL 0 08/05/2023 LDL 0 08/05/2023 HDL 0 08/05/2023 TRIG 0 08/05/2023 No components found for: URINELEUK , URINENITR , URINEPRO , URINEPH , URINEBLD , URINESG , URINEKET , URINEBILI , URINEGLUC IMAGING: IMPRESSION: 1. Fall, initial encounter 2. Hematoma of left buttock PLAN: contusion/hematoma left buttock area after falling. Can use topical creams. As needed using Tylenol,has tramadol at home. I do not think he needs an x-ray. documented in this encounter Plan of Treatment Upcoming Encounters Date Type Department Care Team (Late st Contact Info) Description 04/13/2025 1:00 PM EDT Office Visit Internal Medicine - [place] [address] [address] Boris Tyson MD [address] [address] documented as of this encounter Visit Diagnoses Diagnosis Fall, initial encounter- Primary Hematoma of left buttock documented in this encounter Discontinued Medications Medication Sig Discontinue Reason Start Date End Da te mefloquine (LARIAM) 250 mg tablet Take 1 tablet (250 mg total) by mouth every 7 (seven) days. 09/15/2024 11/23/2024 atovaquone-proguaniL (Malarone) 250-100 mg per tablet Take 1 tablet by mouth 1 (one) time each day after breakfast. 09/15/2024 11/23/2024 documented as of this encounter Additional Health Concerns Assessment Noted Time PHQ-9 Depression Total Score: 1 11/23/19 25 12:11 PM EST documented as of this encounter Care Teams Manufacturing Engineer Relationship Specialty Start Date End Date Boris Tyson MD [address] [address] PCP - General Internal Medicine 11/03/18 documented as of this encounter
--- OUTSIDE RECORDS SUMMARY | 2024-11-30 13:38 | XMS_ITS | Encounter Summary ---
Author Organization [facility], Address [address] [place] [address] Phone Care Team Providers Care Fitness And Wellness Director Name Role Phone Boris Tyson MD Primary Care Provider [phone] Encounter Details Date Type Department Care Team (Late st Contact Info) Description 08/29/2022 Documentation Only [facility], [address] [place] [address] Delisa Salas PA Social History Tobacco Use Types Packs/Day Years Used Date Smoking Tobacco: Never Smokeless Tobacco: Never Alcohol Use Standard Drinks/Week Comments Yes 0 (1 standard drink = 0.6 oz pur e alcohol) Sex and Gender Information Value Date Recorded Sex Assigned at Not on file Legal Sex Male 4:51 PM EDT Gender Identity Not on file Sexual Orientation Not on file documented as of this encounter Plan of Treatment Not on file documented as of this encounter Visit Diagnoses Not on filedocumented in this encounter Care Teams Fitness And Wellness Director Relationship Specialty Start Date End Date Boris Tyson MD [address] [address] PCP - General Internal Medicine 04/04/22 documented as of this encounter
--- OUTSIDE RECORDS SUMMARY | 2024-11-30 13:38 | XMS_ITS | Clinical Summary ---
Author Organization [facility] Address [address] [facility] [facility] [address] [place] [address] Phone Care Team Providers Care Plant Maintenance Technician Name Role Phone Boris Tyson MD Primary Care Provider [phone] Allergies Active Allergy Reactions Criticality Noted Date Comments Bacitracin 08/29/2022 Grass Pollen Standardized Ext 2020 Olopatadine 08/29/2022 Pollen Extract 10/24/2023 Potassium Dichromate 08/29/2022 Medications levocetirizine (XYZAL) 5 MG tablet Take 5 mg by mouth 1 (one) time each day in the evening Active cetirizine (ZyrTEC) 10 MG tablet Take 10 mg by mouth 1 (one) time each day Active b complex vitamins capsule Take 1 capsule by mouth 1 (one) time each day Active CHOLECALCIFEROL PO Take by mouth Active diclofenac (VOLTAREN) 50 MG EC tablet Take 50 mg by mouth in the morning and 50 mg in the evening. Do not crush, chew, or split. . 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 Serum creatinine above reference range 3 Proteinuria 09/12/2022 Stage 3a chronic kidney disease 06/07/2022 Simple renal cyst 06/07/2022 Edema 05/29/2022 Hyperlipidemia 05/29/2022 Anemia 05/29/2022 Vitamin D deficiency 05/29/2022 Immunizations Name Administration Dates Next Due Influenza, MDCK, PF, Quadrivalent 07/13/2019,04/2017 Influenza, MDCK, Quadrivalen t, with preservative 07/07/2020,07/24/2018,07/06/2016 Influenza, Unspecified 06/30/2021 Moderna SARS-COV-2 09/04/2021 Pneumococcal Conjugate 02/07/2023 Pneumococcal Polysaccharide 04/04/2023 Social History Tobacco Use Types Packs/Day Years Used Date Smoking Tobacco: Never Smokeless Tobacco: Never Tobacco Cessation:Counseling Given: Not Answered Alcohol Use Standard Drinks/Week Comments Yes 0 (1 standard drink = 0.6 oz pur e alcohol) Sex and Gender Information Value Date Recorded Sex Assigned at Not on file Legal Sex Male 4:51 PM EDT Gender Identity Not on file Sexual Orientation Not on file Last Filed Vital Signs Vital Sign Reading Time Taken Comments Blood Pressure 112/62 10/30/2023 10:34 AM EST Pulse - - Temperature - - Respiratory Rate - - Oxygen Saturation - - Inhaled Oxygen Concentration - - Weight 81.4 kg (179 lb 6.4 oz) 10/30/2023 10:34 AM EST Height 180.3 cm (5' 11 ) 10/30/2023 10:34 AM EST Body Mass Index 25.02 10/30/2023 10:34 AM EST Plan of Treatment Health Maintenance Due Date Last Done Comments Colorectal Cancer Screening: Annual FOBT 2007 Colorectal Cancer Screening: Colonoscopy 2007 Colorectal Cancer Screening: Sigmoidoscopy 2007 Pneumococcal Vaccine: 65+ Years (2 of 2 - PCV) 04/04/2024 04/04/2023, 02/07/2023 Influenza Vaccine (#1) 2024 , 07/07/2020, 07/13/2019, Additional history exists Hepatitis B Vaccine Aged Out No longe r eligible based on patient's age to complete this topic Insurance AETNA AETNA Care Teams Plant Maintenance Technician Relationship Specialty Start Date End Date Boris Tyson MD [address] [address] PCP - General Internal Medicine 04/04/22
--- OUTSIDE RECORDS SUMMARY | 2024-11-30 13:38 | XMS_ITS | Encounter Summary ---
Author Organization [facility], Address [address] [place] [address] Phone Care Team Providers Care Manager Rfid Name Role Phone Boris Tyson MD Primary Care Provider [phone] Encounter Details Date Type Department Care Team (Late st Contact Info) Description 04/04/2022 Documentation Only [facility], [address] [place] [address] Boris Tyson MD [address] [place] [id number] Social History Tobacco Use Types Packs/Day Years Used Date Smoking Tobacco: Never Assessed Sex and Gender Information Value Date Recorded Sex Assigned at Not on file Legal Sex Male 4:51 PM EDT Gender Identity Not on file Sexual Orientation Not on file documented as of this encounter Plan of Treatment Not on file documented as of this encounter Visit Diagnoses Not on filedocumented in this encounter Care Teams Manager Rfid Relationship Specialty Start Date End Date Boris Tyson MD [address] [place] [address] [address] [place] [address] PCP - General Internal Medicine 04/04/22 documented as of this encounter
--- OUTSIDE RECORDS SUMMARY | 2024-11-30 13:39 | XMS_ITS | Encounter Summary ---
Author Organization [facility] Address [address] [place] [address] Care Team Providers Care Director Digital Analytics Name Role Phone Boris Tyson MD Primary Care Provider [phone] Reason for Visit * Reason Onset Date Comments slipped on ice 11/22/2024 Encounter Details Date Type Department Care Team ([facility] Contact Info) Description 11/22/2024 Telephone Internal Medicine - [place] [address] [facility] [address] [place] [id number] Boris Tyson MD [address] [facility] [address] [place] [address] slipped on ice Social History Tobacco Use Types Packs/Day Years [...] care for your loved ones. For example, children's service supervisor or elderly care for an older adult? [...] on file documented as of this encounter Progress Notes * Gissell Weston RN - 11/22/2024 11:46 AM EST Call to pt # [phone], spoke to pt Pt reports he fell on the ice and now has left hip pain. Asking for xray. Scheduled next day appt * Chloe West - 11/22/2024 9:54 AM EST Patient called and requested a x-ray because he states that he slipped on ice a few days ago and heis having pain on his left hip and is very sore. Please advise Cb# [phone] documented in this encounter Plan of Treatment Upcoming Encounters Date Type Department Care Team (Late st Contact Info) Description 04/13/2025 1:00 PM EDT Office Visit Internal Medicine - [place] [address] [facility] [address] [place] [address] Boris Tyson MD [address] [address] documented as of this encounter Visit Diagnoses Not on filedocumented in this encounter Additional Health Concerns Assessment Noted Time PHQ-9 Depression Total Score: 1 10/25/20 24 12:30 PM EST documented as of this encounter Care Teams Director Digital Analytics Relationship Specialty Start Date End Date Boris Tyson MD 175 [facility] [address] [place] [address] PCP - General Internal Medicine 11/03/18 documented as of this encounter
--- OUTSIDE RECORDS SUMMARY | 2024-11-30 13:39 | XMS_ITS | Encounter Summary ---
Author Organization [facility], Address [address] [place] [address] Phone Care Team Providers Care Blocker Polishing Name Role Phone Boris Tyson MD Primary Care Provider [phone] Encounter Details Date Type Department Care Team (Late st Contact Info) Description 10/24/2023 Documentation Only [facility], [address] [place] [address] Delisa Salas PA Social History [...] on filedocumented in this encounter Care Teams Blocker Polishing Relationship Specialty Start Date End Date Boris Tyson MD [address] [address] PCP - General Internal Medicine 04/04/22 documented as of this encounter
--- OUTSIDE RECORDS SUMMARY | 2024-11-30 13:39 | XMS_ITS | Encounter Summary ---
Author Organization [facility], Address [address] [place] [address] Phone Care Team Providers Care Systems Development Manager Name Role Phone Boris Tyson MD Primary Care Provider [phone] Encounter Details Date Type Department Care Team (Late st Contact Info) Description 12/17/2022 Documentation Only [facility], [address] [place] [address] Delisa Salas PA Social History [...] on filedocumented in this encounter Care Teams Systems Development Manager Relationship Specialty Start Date End Date Boris Tyson MD [address] [address] PCP - General Internal Medicine 04/04/22 documented as of this encounter
--- OUTSIDE RECORDS SUMMARY | 2024-11-30 13:39 | XMS_ITS | Encounter Summary ---
Author Organization [facility], Address [address] [place] [address] Phone Care Team Providers Care Air Tube Releaser Name Role Phone Boris Tyson MD Primary Care Provider [phone] Encounter Details Date Type Department Care Team (Late st Contact Info) Description 12/10/2022 Documentation Only [facility], [address] [place] [address] Olivia Amaro [place] [address] [place] [address] Social History Tobacco Use Types Packs/Day Years [...] on filedocumented in this encounter Care Teams Air Tube Releaser Relationship Specialty Start Date End Date Boris Tyson MD 175 [facility] [address] [place] [address] PCP - General Internal Medicine 04/04/22 documented as of this encounter
--- OUTSIDE RECORDS SUMMARY | 2024-11-30 13:39 | XMS_ITS | Encounter Summary ---
Author Organization [facility], Address [address] [place] [address] Phone Care Team Providers Care Asset Liability Analyst Name Role Phone Boris Tyson MD Primary Care Provider [phone] Encounter Details Date Type Department Care Team (Late st Contact Info) Description 08/25/2023 Orders Only [facility], [address] [facility] [facility] [place] [address] Delisa Salas PA Amyloid nephropathy (HCC); Stage 3b chronic kidney disease (HCC); Anemia, not otherwise specified; Proteinuria, not otherwise specified; Essential (primary) hypertension Social History Tobacco Use Types Packs/Day Years [...] as of this encounter Visit Diagnoses Diagnosis Amyloid nephropathy (HCC) Stage 3b chronic kidney disease (HCC) Anemia, not otherwise specified Proteinuria, not otherwise specified Essential (primary) hypertension documented in this encounter Care Teams Asset Liability Analyst Relationship Specialty Start Date End Date Boris Tyson MD 175 [facility] [address] [place] [address] PCP - General Internal Medicine 04/04/22 documented as of this encounter
--- OUTSIDE RECORDS SUMMARY | 2024-11-30 13:39 | XMS_ITS | Encounter Summary ---
Author Organization [facility] Address [address] [place] [address] Care Team Providers Care Wink Cutter Operator Name Role Phone Boris Tyson MD Primary Care Provider [phone] Reason for Visit * Reason Comments Annual Exam Encounter Details Date Type Department Care Team ([facility] st Contact Info) Description 11/01/2024 1:15 PM EST Office Visit Internal Medicine - [place] [address] [place] [address] Boris Tyson MD [address] [facility] [address] [place] [address] Neuropathic pain (Primary Dx); Light chain (AL) amyloidosis (CMS/HCC); Pure hypercholesterolemia; Preventative health care Social History Tobacco Use Types Packs/Day Years [...] for your loved ones. For example, child care development specialist or elderly care for an older [...] Sign Reading Time Taken Comments Blood Pressure 130/70 11/01/2024 1:29 PM EST Pulse 79 11/01/2024 1:29 PM EST Temperature 36.1 ??C (97 ??F) 11/01/2024 1:29 PM EST Respiratory Rate - - Oxygen Saturation 96% 11/01/2024 1:29 PM EST Inhaled Oxygen Concentration - - Weight 83.3 kg (183 lb 9.6 oz) 11/01/2024 1:29 P M EST Height - - Body Mass Index - - documented in this encounter Progress Notes * Boris Tyson MD - 11/01/2024 1:15 PM EST COMPLAINT physical exam IDENTIFIER: Alo [place] is a 64 y.o. old male. HPI: Come for preventative health checkup. 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 Currently on lisinopril ,omeprazole .takes infusion once a month. Allergic rhinitis is stable .current on colon exam ROS: GENERAL: No malaise, significant weight loss or fever HEENT: No changes in hearing or vision, nose bleeds or other nasal problems NECK: No lumps, goiter, pain or significant neck swelling RESPIRATORY: No cough, wheezing or shortness of breath CARDIOVASCULAR: No chest pain, leg swelling or palpitations GI: No abdominal discomfort, blood in stools or black stools MUSCULOSKELETAL: No joint pain or swelling, back pain, or muscle pain. SKIN: No lesions, rash or itching NEURO: No persistent headache, syncope, seizures, weakness or numbness PAST MEDICAL HISTORY: Patient Active Problem List [...] HISTORICAL KNEE SURGERY; COMMENT: ACL tear at [facility] SOCIAL HISTORY: Social History Tobacco Use Smoking [...] Outpatient Medications Marked as Taking for the 11/01/24 encounter (Office Visit) with Boris Tyson MD Medication Sig Dispense Refill acyclovir (ZOVIRAX) 200 mg capsule Take 1 Capsule by mouth 2 times daily. atovaquone-proguaniL (Malarone) 250-100 mg per tablet Take 1 tablet by mouth 1 (one) time each day after breakfast. 60 tablet 1 bepotastine (Bepreve) 1.5 % drops APPLY 1 [...] tablet Take 1 Tablet by mouth daily. mefloquine (LARIAM) 250 mg tablet Take 1 tablet (250 mg total) by mouth every 7 (seven) days. 6 tablet 0 omeprazole (PriLOSEC) [address] capsule TAKE 1 CAPSULE BY MOUTH TWICE A DAY tacrolimus (PROTOPIC) 0.1 % ointment APPLY TWICE A DAY TO AFFECTED AREAS FOR UP TO 6 WEEKS traMADol ER (ULTRAM-ER) 100 mg 24 hr tablet Take 1 Tablet by mouth daily. ALLERGIES: Allergies Allergen Reactions Bacitracin Positive patch testing Olopatadine Facial and eyelid itching and irritation Potassium Dichromate Positive patch testing PHYSICAL EXAM: Vitals: 11/01/24 1329 BP: 130/70 Pulse: 79 Temp: 36.1 ??C (97 ??F) SpO2: 96% APPEARANCE: Alert and in no acute distress EARS: External ears normal. Canals clear. TMs normal. NOSE/SINUS: Nares normal. Septum midline. Mucosa normal. No drainage or sinus tenderness. NECK: Neck supple, no adenopathy HEART: RRR with normal S1 and S2, no murmurs LUNG: clear to auscultation Abdominal exam no tenderness or guarding. EXTREMITIES: Extremities warm and well perfused without clubbing, cyanosis, or edema NEURO: Awake, alert and oriented x 3 peripheral neuropathy in the hands and feet SKIN: Skin color, texture, turgor normal. No rashes or lesions. LABS: No results found for: WBC , [...] , URINEBILI , URINEGLUC IMAGING: IMPRESSION: 1. Neuropathic pain Lipid panel with reflex to direct LDL Thyroid stimulating hormone Prostate specific antigen screen Prostate specific antigen screen 2. Light chain (AL) amyloidosis (CMS/HCC) Lipid panel with reflex to direct LDL Thyroid stimulating hormone Prostate specific antigen screen Prostate specific antigen screen 3. Pure hypercholesterolemia Lipid panel with reflex to direct LDL Thyroid stimulating hormone Prostate specific antigen screen Prostate specific antigen screen 4. Preventative health care Lipid panel with reflex to direct LDL Thyroid stimulating hormone Prostate specific antigen screen Prostate specific antigen screen PLAN: Light chain amyloidosis, closely being followed by radio communications mechanician. currently on infusion daratumumab once a month ,appears stable. CKD, stable. Currently on lisinopril and omeprazole. Current on vaccinations and screening guidelines. documented in this encounter Plan of Treatment Upcoming Encounters Date Type Department Care Team (Late st Contact Info) Description 04/13/2025 1:00 PM EDT Office Visit Internal Medicine - [place] [address] [facility] [address] [place] [phone] Boris Tyson MD [address] [facility] [address] [place] [address] Scheduled Orders Name Type Priority Associated Diagnoses Orde r Schedule Lipid panel with reflex to direct LDL Lab Routine Neuropathic pain Light chain (AL) amyloidosis (CMS/HCC) Pure hypercholesterolemia Preventative health care 1 Occurrences starting 11/01/2024 until 11/01/2025 Thyroid stimulating hormone Lab Routine Neuropathic pain Light chain (AL) amyloidosis (CMS/HCC) Pure hypercholesterolemia Preventative health care 1 Occurrences starting 11/01/2024 until 11/01/2025 Prostate specific antigen screen Lab Routine Neuropathic pain Light chain (AL) amyloidosis (CMS/HCC) Pure hypercholesterolemia Preventative health care 1 Occurrences starting 11/01/2024 until 11/01/2025 documented as of this encounter Visit Diagnoses Diagnosis Neuropathic pain- Primary Light chain (AL) amyloidosis (CMS/HCC) Pure hypercholesterolemia Preventative health care Routine general medical examination at a health care facility documented in this encounter Additional Health Concerns Assessment Noted Time PHQ-9 Depression Total Score: 1 10/25/20 24 12:30 PM EST documented as of this encounter Care Teams Wink Cutter Operator Relationship Specialty Start Date End Date Boris Tyson MD [address] [place] [address] PCP - General Internal Medicine 11/03/18 documented as of this encounter
--- OUTSIDE RECORDS SUMMARY | 2024-11-30 13:39 | XMS_ITS | Clinical Summary ---
Author Organization [facility] Address [address] [place] [address] Phone Care Team Providers Care Dietary Internship Name Role Phone Boris Tyson MD Primary Care Provider [phone] Allergies Active Allergy Reactions Criticality Noted Date Comments Bacitracin 01/08/2021 Positive patch testing Olopatadine 06/14/2020 Facial and eyelid itching and irritation Potassium Dichromate 01/08/2021 Positive patch testing Medications Medication Sig Dispensed Refills Start Date End Date Status bepotastine (Bepreve) 1.5 % drops APPLY 1 DROP TO THE EYE 2 TIMES DAILY. 4 Active cetirizine (ZyrTEC) 10 mg tablet TAKE 1 TABLET BY MOUTH EVERY DAY IN THE EVENING 4 Active levocetirizine (XYZAL) 5 mg tablet Take 1 Tablet by mouth every evening. 4 Active traMADol ER (ULTRAM-ER) 100 mg 24 hr tablet Take 1 Tablet by mouth daily. Active lisinopriL (PRINIVIL,ZEST RIL) 2.5 mg tablet Take 1 Tablet by mouth daily. Active acyclovir (ZOVIRAX) 200 mg capsule Take 1 Capsule by mouth 2 times daily. Active tacrolimus (PROTOPIC) 0.1 % ointment APPLY TWICE A DAY TO AFFECTED AREAS FOR UP TO 6 WEEKS 2 Active clobetasoL 0.05 % shampoo Apply 1 Dose topically daily. Apply to dry scalp daily and lather in. Rinse after 5-10 minutes. Use consecutively for 2 weeks then decrease use to 3 times a week. 1 Active hydrocortisone 1 % topical cream APPLY A THIN LAYER TWICE DAILY FOR 7 DAYS. 1 Active DIETARY SUPPLEMENT ORAL Take by mouth daily. Active omeprazole (PriLOSEC) [address] capsule Take 1 capsule (20 mg total) by mouth 2 (two) times a day. 180 capsule 1 5 Active atovaquone-pro guaniL (Malarone) 250-100 mg per tablet Take 1 tablet by mouth 1 (one) time each day after breakfast. 60 tablet 1 4 11/23/19 25 Discontinued mefloquine (LARIAM) 250 mg tablet Take 1 tablet (250 mg total) by mouth every 7 (seven) days. 6 tablet 4 11/23/19 25 Discontinued omeprazole (PriLOSEC) [address] capsule TAKE 1 CAPSULE BY MOUTH TWICE A DAY 3 11/04/19 25 Discontinued omeprazole (PriLOSEC) [address] capsule Take 1 capsule (20 mg total) by mouth 2 (two) times a day. 180 capsule 1 5 11/05/19 25 Discontinued(Reo rder) Active Problems Problem Noted Date Diagnosed Date Upper respiratory tract infection 05/28/2019 Edema 07/24/2018 Hyperlipidemia 07/24/2018 Venous insufficiency 07/24/2018 Osteoarthritis of both knees 05/01/2018 Anemia 04/03/2018 Hallux valgus 04/03/2018 Sciatica 04/03/2018 Thalassemia 04/03/2018 Vitamin D deficiency 04/03/2018 Neuropathic pain 11/02/2015 Cervical spondylosis without myelopathy 07/28/20 15 Encounters Date Type Department Care Team Description 11/23/2024 1:30 PM EST Office Visit Internal Medicine [address] [phone] Boris Tyson MD Fall, initial encounter (Primary Dx); Hematoma of left buttock 11/22/2024 Telephone Internal Medicine [address] [phone] Boris Tyson MD slipped on ice 11/01/2024 1:15 PM EST Office Visit Internal Medicine [address] [phone] Boris Tyson MD Neuropathic pain (Primary Dx); Light chain (AL) amyloidosis (CMS/HCC); Pure hypercholesterolemia; Preventative health care 11/01/2024 [place] [facility] - [address] [place] [address] Boris Tyson MD from Last 3 Months Immunizations Name Administration Dates Next Due Influenza Quadravalent, MDCK , 0.5ml, preservative free (Flucelvax) 6mo and older 07/13/2019,08/02/2017 Influenza Quadravalent, MDCK , 0.5ml, with preservative (Flucelvax) 6mo and older 07/07/2020,07/24/2018,07/06/2016 Influenza trivalent, 0.5mL, preservative free (Fluarix; FluLaval; Fluzone) ages 6mo and older (Afluria) 3 years and older 06/30/2021,07/24/2018 Influenza, Unspecified 05/31/2024,09/29/2023 Moderna SARS-CoV-2 COVID-19, mRNA, LNP-S, preservative free 03/20/2024,10/02/2023,09/04/2021 Zoster recombinant (Shingrix ) 19yo and older 09/16/2023 Surgical History Surgery Date Site/Laterality Comments KNEE SURGERY 2015 Right PROCEDURE: HISTORICAL KNEE SURGERY; COMMENT: ACL tear at [facility] Medical History Medical History Date Comments Hallux valgus 04/03/2018 DX:Hallux valgus Anemia 04/03/2018 DX:Anemia Vitamin D deficiency 04/03/2018 DX:Vitamin D deficiency Thalassemia 04/03/2018 DX:Thalassemia Sciatica 04/03/2018 DX:Sciatica History of tear of ACL (ante rior cruciate ligament) 05/01/2018 DX:History of tear of ACL (a nterior cruciate ligament) Venous insufficiency 07/24/2018 DX:Venous i nsufficiency Cervical spondylosis without myelopathy 07/28/2015 DX:Cervical spondylosis with out myelopathy Osteoarthritis of both knees 05/01/2018 DX: Osteoarthritis of both knees Neuropathic pain 11/02/2015 DX:Neuropathic pain Hyperlipidemia 07/24/2018 DX:Hyperlipidemi a Edema 07/24/2018 DX:Edema Family History Medical History Relation Name Comments Other: allergic rhinitis Father Other: allergic rhinitis Mother Asthma Sister Other: allergic rhintiis Sister Relation Name Status Comments Father Mother Sister Social History Tobacco Use Types Packs/Day Years [...] care for your loved ones. For example, attendant children's institution or elderly care for an older adult? [...] file Not on file Not on file Obstetrics History Last Filed Vital Signs Vital Sign Reading [...] - - Body Mass Index - - Plan of Treatment Upcoming Encounters Date Type Department Care Team (Late st Contact Info) Description 04/13/2025 1:00 PM EDT Office Visit Internal Medicine - [place] [address] [facility] [address] [place] [phone] Boris Tyson MD [address] [facility] [address] [place] [address] Health Maintenance Due Date Last Done Comments DTaP,Tdap,and Td Vaccines (1 - Tdap) 1977 Abdominal Aortic Aneurysm (AAA) Screen 10/05/2022 Colorectal Cancer Screening: Colonoscopy 10/05/2022 Hepatitis C Screening 10/05/2022 Hypertension/CHF/CAD Annual BMP Blood Test 08/17/2025 08/17/2024, 02/03/2024, 02/03/2024, Additional history exists Social Influencers of Health Screening 10/25/2025 10/25/2024 Falls Risk Assessment 11/01/2025 11/01/2024 Depression Screening 11/23/2025 11/23/2024 Cholesterol Screening (Lipid Panel) 08/05/2028 08/05/2023, 08/05/2023 Pneumococcal Vaccine: 65+ Years Completed 04/04/2023, 02/07/2023 Zoster Vaccines Completed 09/16/2023, 02/06/2023 RSV Immunization Patients 60+ Years Old Completed 10/24/2023 Influenza Vaccine Completed 05/31/2024, , 07/05/2022, Additional history exists COVID-19 Vaccine Completed 07/10/2024, , 10/02/2023, Additional history exists HIB Vaccines Aged Out No longer eligi ble based on patient's age to complete this topic HPV Vaccines Aged Out No longer eligi ble based on patient's age to complete this topic Hepatitis A Vaccines Aged Out No long er eligible based on patient's age to complete this topic Hepatitis B Vaccines Aged Out No long er eligible based on patient's age to complete this topic IPV Vaccines Aged Out No longer eligi ble based on patient's age to complete this topic MMR Vaccines Aged Out No longer eligi ble based on patient's age to complete this topic Meningococcal ACWY Vaccine Aged Out N o longer eligible based on patient's age to complete this topic RSV Immunization Patients Under 20 months Aged Out No longer eligible based on patient's age to complete this topic Varicella Vaccines Aged Out No longer eligible based on patient's age to complete this topic Procedures Procedure Name Priority Date/Time Associated Diagnosis Comments ANNUAL BMP BLOOD TEST Routine 02/03/2024 LIPID PANEL Routine 08/05/2023 from Last 3 Months or Most Recently Relevant to Health Maintenance Results * Annual BMP Blood Test (02/03/2024) Pathologist [facility] Annual BMP Blood Test Abstracted Historical Provider MD FLY Culver Lipid panel (08/05/2023) [facility] Triglycerides 0 mg/dL Comment:No interpretation, A bstracted Cholesterol 0 mg/dL Comment:No interpretation, A bstracted HDL 0 mg/dL Comment:No interpretation, A bstracted LDL Cholesterol 0 mg/dL Comment:No interpretation, A bstracted Blood Venous blood specimen / Unknown Historical Provider LAB BLOOD ORDERAB LES from Last 3 Months or Most Recently Relevant to Health Maintenance Care Teams Dietary Internship Relationship Specialty Start Date End Date Boris Tyson MD [address] [facility] [address] [place] [address] PCP - General Internal Medicine 11/03/18
--- OUTSIDE RECORDS SUMMARY | 2024-11-30 13:39 | XMS_ITS | Clinical Summary ---
Author Organization [facility] Address [address] [place] [address] Care Team Providers Care Business System Consultant Name Role Phone Boris Tyson MD Primary Care Provider Unavailab le Allergies No known active allergies Medications Medication Sig Dispensed Refills Start Date End Date Status sulfamethoxazole-tr imethoprim (BACTRIM DS) 800-160 MG per tabletIndications:M WF once daily Take 1 tablet (160 mg of trimethoprim total) by mouth. 0 Active valACYclovir HCl (VALTREX PO) Take 400 mg by mouth 2 (two) times a day. 0 Active ONDANSETRON PO Take 4 mg by mouth. 0 A ctive prochlorperazine (COMPAZINE) 5 MG tablet Take 1 tablet (5 mg total) by mouth every 6 (six) hours as needed for nausea. 0 Active dexamethasone (DECADRON) 4 MG tablet Take 1 tablet (4 mg total) by mouth every morning with breakfast. 0 Active amLODIPine (NORVASC) tablet 5 mg Take 1 tablet (5 mg total) by mouth daily. 0 Active Active Problems No known active problems Social History Tobacco Use Types Packs/Day Years [...] file Not on file Not on file Last Filed Vital Signs Vital Sign Reading Time Taken Comments Blood Pressure 152/72 01/29/2023 11:14 AM EDT Pulse 65 06/03/2022 11:55 AM EDT Temperature 36.7 ??C (98.1 ??F) 01/29/2023 11:14 AM E DT Respiratory Rate - - Oxygen Saturation 99% 01/29/2023 11:14 AM EDT Inhaled Oxygen Concentration - - Weight 114.3 kg (252 lb) 01/29/2023 11:14 AM EDT Height 182.9 cm (6') 01/29/2023 11:14 AM EDT Body Mass Index 34.18 01/29/2023 11:14 AM EDT Plan of Treatment Health Maintenance Due Date Last Done Comments Hepatitis C Screening 1958 COVID-19 Vaccine (#1) 03/31/1959 Depression Screening 1970 Preventative Health Evaluation 1976 DTap / Tdap / Td (1 - Tdap) 1977 Colon Cancer Screening (Colonoscopy) 2003 Shingrix-Zoster Vaccine (1 of 2) 2008 Fall Risk Assessment 2023 Pneumococcal Vaccine (1 of 1 - PCV) 2023 Influenza Vaccine (#1) 2024 , 07/07/2020, 07/13/2019, Additional history exists RSV Adult > 60+ Yrs or (1 - 1-dose 75+ series) 2033 Hepatitis B Vaccines Aged Out No long er eligible based on patient's age to complete this topic RSV Ped < 20 months Aged Out No longe r eligible based on patient's age to complete this topic Insurance Payer Benefit Plan / Group Subscriber ID Effective Dates Phone Address [facility] [id number] 2021-Present [address] [facility] [address] [place] [phone] O Care Teams Business System Consultant Relationship Specialty Start Date End Date Boris Tyson MD PCP - General Internal Medicine 03/18/22
--- OUTSIDE RECORDS SUMMARY | 2024-11-30 13:39 | XMS_ITS | Encounter Summary ---
Author Organization [facility] Address [address] [place] [address] Care Team Providers Care Cost Accounting Analyst Name Role Phone Boris Tyson MD Primary Care Provider [phone] Encounter Details Date Type Department Care Team ([facility] st Contact Info) Description 11/01/2024 Telephone Internal Medicine - [place] [address] [facility] [address] [place] [phone] Boris Tyson MD [address] [facility] [address] [place] [address] Social History Tobacco Use Types Packs/Day Years [...] for your loved ones. For example, child guidance counselor or elderly care for an older adult? [...] as of this encounter Plan of Treatment Upcoming Encounters Date Type Department Care Team (Late st Contact Info) Description 04/13/2025 1:00 PM EDT Office Visit Internal Medicine - [place] [address] [facility] [address] [place] [phone] Boris Tyson MD 175 [facility] [address] [place] [address] documented as of this encounter Visit Diagnoses Not on filedocumented in this encounter Additional Health Concerns Assessment Noted Time PHQ-9 Depression Total Score: 1 10/25/20 24 12:30 PM EST documented as of this encounter Care Teams Cost Accounting Analyst Relationship Specialty Start Date End Date Boris Tyson MD [address] [place] [id number] PCP - General Internal Medicine 11/03/18 documented as of this encounter
--- OUTSIDE RECORDS SUMMARY | 2024-11-30 13:39 | XMS_ITS | Encounter Summary ---
Author Organization [facility] Address [address] [place] [address] Phone Care Team Providers Care Rfid Technician Name Role Phone Boris Tyson MD Primary Care Provider [phone] Encounter Details Date Type Department Care Team (Late st Contact Info) Description 04/14/2023 Orders Only [facility] [place], [address] [place] [phone] Delisa Salas PA Amyloid nephropathy (HCC); Stage 3b chronic kidney disease (HCC); Proteinuria, not otherwise specified; Essential (primary) hypertension [...] on file documented as of this encounter Procedures Procedure Name Priority Date/Time Associated Diagnosis Comments IRON PANEL (FE, TIBC, TSAT) Routine 11/14/2023 12:45 PM EST Amyloid nephropathy (HCC) Stage 3b chronic kidney disease (HCC) Proteinuria, not otherwise specified Essential (primary) hypertension CBC AND DIFFERENTIAL Routine 11/14/2023 12:45 PM EST Amyloid nephropathy (HCC) Stage 3b chronic kidney disease (HCC) Proteinuria, not otherwise specified Essential (primary) hypertension RENAL FUNCTION PANEL Routine 11/14/2023 12:45 PM EST Amyloid nephropathy (HCC) Stage 3b chronic kidney disease (HCC) Proteinuria, not otherwise specified Essential (primary) hypertension PROTEIN / CREATININE RATIO, URINE Routine 11/14/2023 12:42 PM EST Amyloid nephropathy (HCC) Stage 3b chronic kidney disease (HCC) Proteinuria, not otherwise specified Essential (primary) hypertension URINALYSIS WITH MICROSCOPIC Routine 11/14/2023 12:42 PM EST Amyloid nephropathy (HCC) Stage 3b chronic kidney disease (HCC) Proteinuria, not otherwise specified Essential (primary) hypertension documented in this encounter Results * (ABNORMAL) Renal function panel (11/14/2023 12:45 PM EST) Glucose 103(H) (70-99) MG/DL [facility] BUN 16 (8-23) MG/DL [facility] Creatinine 1.8(H) (0.7-1.2) MG/DL [facility] Sodium 132(L) (133-145) MMOL/L [facility] Potassium 4.1 (3.6-5.2) MMOL/L [facility] Chloride 93(L) (98-107) MMOL/L [facility] Bicarbonate (CO2) 28 (22-29) MMOL/L [facility] Anion Gap 11 (4-17) [facility] Albumin 4.2 (3.4-4.8) GM/DL [facility] Calcium 8.9 (8.6-10.5) MG/DL [facility] Phosphorus, Serum 4.6(H) (2.5-4.5) MG/DL [facility] Est GFR Non 42 ML/MIN/1.7 3 M2 [facility] Comment: Creatinine based estimated glomerular filtration (eGFR) in adults is calculated using the National [employer] recommended 2020 CKD-EPI equation. Estimates GFR from serum creatinine, age and sex. Testing performed or reported by [facility], a Service of [facility], [address] [place] [address] Benito Combs MD, [employer] [facility]# [id number] Blood (Blood, Venous) 11/14/2023 12:45 PM EST 11/14/2023 12:46 PM EST Delisa GILES [facility] BLOOD ORDERABLES Final Re sult [facility] * Iron Panel (Fe, TIBC, TSAT) (11/14/2023 12:45 PM EST) [facility] Iron 58 (45-160) MCG/DL [facility] UIBC 218 (110-370) MCG/DL [facility] TIBC 276 (155-530) MCG/DL [facility] Iron Saturation (TSat) 21 (20-55) % [facility] Comment: Testing performed or reported by [facility], a Service of [facility], [address] [place] [address] Benito Combs MD, [employer] [facility]# [id number] Blood (Blood, Venous) 11/14/2023 12:45 PM EST 11/14/2023 12:46 PM EST Delisa GILES [facility] BLOOD ORDERABLES Final Re sult Performing Organization Address [facility]/ZIP Co de Phone Number [facility] * (ABNORMAL) CBC and differential (11/14/2023 12:45 PM EST) [facility] White Blood Cells 12.9(H) (4.0-11.0 ) K/MM3 [facility] RBC 5.11 (4.70-6.1 0) M/MM3 [facility] Hgb 11.1(L) (13.7-17. 1) GM/DL [facility] Hematocrit 34.5(L) (40.5-50. 0) % [facility] MCV 67.5(L) (80.0-94. 0) FL [facility] MCH 21.7(L) (27.0-34. 0) PG [facility] MCHC 32.2(L) (33.0-37. 0) g/dL [facility] Platelets 142(L) (150-460) K/MM3 [facility] RDW-SD 38.3 (<47.0) FL [facility] MPV NOT MEASURED (9.4-12.4 ) FL [facility] nRBC Count 0.0 #/100 WBC'S [facility] NRBC Absolute 0.0 K/MM3 [facility] Neutrophils % Auto 82.0(H) (44-76) % [facility] Lymphs 4.0(L) (15-43) % [facility] Monocytes Absolute 11.0(H) (4.5-10.5 ) % [facility] Eosinophils 1.0 (0-6) % [facility] Immature Granulocytes 2.0 % [facility] Neutrophils Abs Auto 10.6(H) (1.3-7.0) K/MM3 [facility] Lymphocytes Relative 0.5(L) (0.8-3.1) K/MM3 [facility] Monocytes 1.4(H) (0.4-1.3) K/MM3 [facility] Eosinophils Relative 0.1 (0.0-0.4) K/MM3 [facility] Granulocytes Absolute 0.3 K/MM3 [facility] RBC Morphology MODERATE [facility] Comment: HYPOCHROMIA MODERATE MICROCYTES MODERATE OVALOCYTES MODERATE POLYCHROMASIA FEW SCHISTOCYTES Platelet Estimate SLIGHTLY DECREASED [facility] Comment: Testing performed or reported by [facility], a Service of [facility], [address] [place] [address] Benito Combs MD, [employer] CLIA# [id number] Blood (Blood, Venous) 11/14/2023 12:45 PM EST 11/14/2023 12:46 PM EST Delisa GILES [facility] BLOOD ORDERABLES Final Re sult [facility] * (ABNORMAL) Urine Protein / creatinine ratio (11/14/2023 12:42 PM EST) Protein/Creati ne Ratio 0.31(H) (0-0.2) [facility] Protein, Urine 57 MG/DL [facility] Creatinine, Urine 186.0 MG/DL [facility] Comment: Testing performed or reported by [facility], a Service of [address] [address] Benito Combs MD, [employer] CLIA# [id number] Urine (Urine, Clean Catch) 11/14/2023 12:42 PM EST 11/14/2023 12:46 PM EST Delisa GILES [facility] URINE ORDERABLES Final Re sult Performing Organization Address [facility]UST de Phone Number [facility] * (ABNORMAL) Urinalysis with microscopic (11/14/2023 12:42 PM EST) Appearance YELLOW [facility] Comment:CLEAR Specific [place] 1.014 (1.002-1. 030) [facility] pH Urine 7.0 (5.0-8.0) [facility] Albumin, Urine 1+(A) (NEG) [facility] Glucose, Ur NEGATIVE (NEG) [facility] Ketones, Urine NEGATIVE (NEG) [facility] Bilirubin Urine NEGATIVE (NEG) [facility] Hemoglobin Presence in Urine NEGATIVE (NEG) [facility] Nitrite, Urine NEGATIVE (NEG) [facility] Leukocyte Esterase Urine NEGATIVE (NEG) [facility] Urobilinogen Urine NORMAL (NORM) MG/DL [facility] WBC, Urine NONE SEEN (0-5) /HPF [facility] RBC, Urine NONE SEEN (0-3) /HPF [facility] Hyaline Casts, Urine 1 (0-2) LPF [facility] Comment: Testing performed or reported by [facility], a Service of [facility], [address] [place] [address] Benito Combs MD, [employer] [facility]# [id number] Urine (Urine, Clean Catch) 11/14/2023 12:42 PM EST 11/14/2023 12:46 PM EST Delisa G[facility] URINE ORDERABLES Final Re sult Performing Organization Address [facility] Co de Phone Number [facility] documented in this encounter Visit Diagnoses Diagnosis Amyloid nephropathy (HCC) Stage 3b chronic kidney disease (HCC) Proteinuria, not otherwise specified Essential (primary) hypertension documented in this encounter Care Teams Rfid Technician Relationship Specialty Start Date End Date Boris Tyson MD [address] [place] [id number] PCP - General Internal Medicine 04/04/22 documented as of this encounter
== END 2024-11-30 14:08 | disposition home or self-care (01) ==
PROVIDERS: PCP Internal Medicine; Visit Provider Internal Medicine Nephrology
DX: N18.32 Chronic kidney disease, stage 3b (principal); E85.4 Organ-limited amyloidosis; N08 Glomerular disorders in diseases classified elsewhere; D63.1 Anemia in chronic kidney disease; I10 Essential (primary) hypertension; E87.1 Hypo-osmolality and hyponatremia
CPT/HCPCS: 99214

== ENCOUNTER → 2024-11-30 13:26 | Outpatient (BNVA) | payer OTHER, SELFPAY | PROVIDERS: PCP Internal Medicine; Visit Provider Internal Medicine Nephrology | DX: I10 Essential (primary) hypertension (principal); N18.32 Chronic kidney disease, stage 3b; D63.1 Anemia in chronic kidney disease; E85.4 Organ-limited amyloidosis; N08 Glomerular disorders in diseases classified elsewhere ==

== ENCOUNTER 2025-02-24 14:25 | Outpatient (AMB) | payer OTHER, SELFPAY ==
--- NOTE | 2025-02-24 14:29 | HO.NEPHOV ---
Vital Signs 02/24/25 14:32 Height 6 ft Weight 187 lb BMI 25.4 BP 126/70 Blood Pressure Location Lt brachial Position Sitting Pulse 69 Pulse Source Pulse Oximeter Pulse Oximetry (%) 98 Oxygen Delivery Method Room Air Intake Visit Reasons: 3 mo follow up-Conf Accompanied by: Self / Same As Patient Allergies bacitracin Allergy (Verified 02/24/25 14:32) Unknown olopatadine Allergy (Verified 02/24/25 14:32) Unknown potassium dichromate Allergy (Uncoded 04/05/24 14:55) Unknown HPI Comments Details: Alo was seen in follow up for his kidney involvement with AL amyloidosis. He had seen oncologist in [facility] as well as in [facility] and [facility] in [place]. He has been getting daratumumab. He has had various investigations including cardiac MRI which was suggestive of early amyloidosis but with preserved biventricular function by echo and cardiac MRI. He was evaluated for stem cell transplant but has been put on hold for now. He has noted a decrease in exercise capacity through the course of his treatment with chemotherapy. He has been on lisinopril started by his business sales consultant. He had no regional wall motion abnormalities. His left ventricular ejection fraction was 60-65%. His left ventricular systolic function and right ventricular systolic function was normal. His left atrium was mildly dilated. There was mild dilation of the ascending aorta measuring 39 mm in the tubular section which may be normal for patient's height. He underwent a renal biopsy which showed renal amyloidosis, AL type, lambda phenotype. Diffuse amyloid deposits in glomeruli and renal arteries/ arterioles and focally in interstitium. Global glomerulosclerosis was present in 15% of total glomeruli. He had mild to moderate interstitial fibrosis and tubular atrophy. Electron microscopy showed normal based membrane. There was global effacement of foot process. Endothelial fenestration were preserved. Mesangial matrix was expanded by mildly electron dense material showing randomly arranged fibrillary substructure. Multiple measurements of the fibril widths average to 7.5 nanometer was consistent with amyloid. He had nephrotic range proteinuria. He did not have any neuropathy. He was treated with Luanne CyBord per Andromeda study. His Cytoxan dose was reduced by 20% for fatigue and anemia. His Velcade was held for question of neuropathy/ myopathy. His stem cell collection was done at [facility]( Dr Gonzalez). He had proximal myopathy and underwent skeletal muscle biopsy which showed amyloid. He had been having anemia and receives Retacrit on a regular basis. He is feeling better compared to 6 months ago. He denies any chest pain, shortness of breath, paroxysmal nocturnal dyspnea, orthopnea, pedal edema or urinary symptoms. He also had COVID infection a while ago.. His last kappa lambda ratio was 1.66. His urine protein creatinine ratio had improved to 0.16 from over 2 g. His creatinine has been stable. His Na has been fluctuant. His serum K has gone up to 5.7 and his ACEI has been put on hold. [facility] Medical History (Updated 02/24/25 @ 21:16 by Yves Navarrete MD) Cervical spondylosis without myelopathy Neuropathic pain Sciatica Thalassanemia Vitamin D deficiency Anemia Hallux valgus History of tear of ACL (anterior cruciate ligament) Osteoarthritis of both knees Venous insufficiency Hyperlipidemia Edema Upper respiratory tract infection Surgical History H/O repair of rotator cuff History of knee surgery Social History Alcohol intake: never Patient Tobacco Use Status: Never used Tobacco Review of Systems Const All systems reviewed & are unremarkable except as noted in HPI and below Physical Exam Vital Signs: Last Vital Signs Pulse 69 02/24/25 14:32 BP 126/70 02/24/25 14:32 Pulse Ox 98 02/24/25 14:32 Oxygen Delivery Method Room Air 02/24/25 14:32 BMI result Body Mass Index 25.4 Const General: comfortable and no acute distress Orientation/consciousness: patient oriented x3 HEENT Head: Yes normocephalic Mouth: Normal oral and palatal mucosa present Eyes EOM: EOMs intact bilaterally Neck Neck: Yes supple Resp Auscultation: clear to auscultation bilaterally Cardio Jugular venous distension: no JVD Rate: regular rate GI Palpation (GI): Soft to palpation Auscultation: normal bowel sounds General: Yes no CVA tenderness Back/Spine/Pelvis Back: no CVA tenderness Skin General skin exam: no rashes or lesions noted Neuro General: patient oriented x3 and moves all extremities Extrem General: Yes no pedal edema Results Reviewed Nephrology Results: No Data to Display Assessment & Plan Assessment & Plan (1) AL amyloid nephropathy: Code(s): E85.4 - Organ-limited amyloidosis; N08 - Glomerular disorders in diseases classified elsewhere Category: Medical (2) CKD (chronic kidney disease) stage 3, GFR 30-59 ml/min: Code(s): N18.30 - Chronic kidney disease, stage 3 unspecified Category: Medical Qualifiers: Chronic kidney disease stage 3 subtype: stage 3b (GFR 30-44) Qualified Code(s): N18.32 - Chronic kidney disease, stage 3b (3) Anemia in chronic kidney disease (CKD): Code(s): N18.9 - Chronic kidney disease, unspecified; D63.1 - Anemia in chronic kidney disease Category: Medical Qualifiers: Chronic kidney disease stage: stage 3 (moderate) Chronic kidney disease stage 3 subtype: stage 3b (GFR 30-44) Qualified Code(s): N18.32 - Chronic kidney disease, stage 3b; D63.1 - Anemia in chronic kidney disease (4) Hypertension: Code(s): I10 - Essential (primary) hypertension Category: Medical Qualifiers: Hypertension type: primary hypertension Qualified Code(s): I10 - Essential (primary) hypertension (5) Hyponatremia: Code(s): E87.1 - Hypo-osmolality and hyponatremia Category: Medical (6) Hyperkalemia: Code(s): E87.5 - Hyperkalemia Category: Medical Plan He has CKD due to renal biopsy proven AL amyloid (lambda phenotype) . He had been getting daratumumab. He was evaluated for stem cell transplant but has been put on hold for now. His stem cell collection was done at [facility]( Dr Gonzalez). His lisinopril is on hold due to hyperkalemia which I shall restart at a lower dose once his serum k has normalized. I may add K lowering medications and maximize ACEI if his hemodynamics permit . He had no regional wall motion abnormalities in the ECHO. His left ventricular ejection fraction was 60-65%. His left ventricular systolic function and right ventricular systolic function was normal. ( Renal biopsy showed Diffuse amyloid deposits in glomeruli and renal arteries/ arterioles and focally in interstitium. Global glomerulosclerosis was present in 15% of total glomeruli. He had mild to moderate interstitial fibrosis and tubular atrophy. Electron microscopy showed normal based membrane. There was global effacement of foot process. Endothelial fenestration were preserved. Mesangial matrix was expanded by mildly electron dense material showing randomly arranged fibrillary substructure. Multiple measurements of the fibril widths average to 7.5 nanometer was consistent with amyloid). He had nephrotic range proteinuria which has improved with supportive management. (He was treated with Luanne CyBord per Andromeda study. His Cytoxan dose was reduced by 20% for fatigue and anemia. His Velcade was held for question of neuropathy/ myopathy). He had proximal myopathy and underwent skeletal muscle biopsy which showed amyloid. He is a candidate for [employer]. His 24 hour urine collection for creatinine clearance is pending. All these have been explained in detail. Answered all questions & follow-up appointment was given Orders: Orders Creatinine 3 Months Yves Navarrete MD D63.1 - Anemia in chronic kidney disease, E85.4 - Organ-limited amyloidosis, I10 - Essential (primary) hypertension, N08 - Glomerular disorders in diseases classified elsewhere, N18.32 - Chronic kidney disease, stage 3b Blood Urea Nitrogen 3 Months Yves Navarrete MD D63.1 - Anemia in chronic kidney disease, E85.4 - Organ-limited amyloidosis, I10 - Essential (primary) hypertension, N08 - Glomerular disorders in diseases classified elsewhere, N18.32 - Chronic kidney disease, stage 3b Electrolytes 3 Months Yves Navarrete MD D63.1 - Anemia in chronic kidney disease, E85.4 - Organ-limited amyloidosis, I10 - Essential (primary) hypertension, N08 - Glomerular disorders in diseases classified elsewhere, N18.32 - Chronic kidney disease, stage 3b Medications: On Hold lisinopril Hold Comment: Doctor's Order 15 mg (3 x 5 mg) PO DAILY 90 tabs 3RF Cassie Cody MA Coding Level of Care Code Est Pt Level 4 (41249) Diagnoses AL amyloid nephropathy E85.4; N08 Stage 3b chronic kidney disease N18.32 Chronic kidney disease stage 3 subtype: stage 3b (GFR 30-44) Anemia in stage 3b chronic kidney disease N18.32; D63.1 Chronic kidney disease stage: stage 3 (moderate) Chronic kidney disease stage 3 subtype: stage 3b (GFR 30-44) Primary hypertension I10 Hypertension type: primary hypertension Hyponatremia E87.1 Hyperkalemia E87.5
[2025-02-24 14:32] VITALS: BP 126/70; PULSE 69; O2SAT 98; BMI 25.4
--- OUTSIDE RECORDS SUMMARY | 2025-02-24 16:30 | XMS_ITS | Encounter Summary ---
Author Organization [facility] Address [address] [place] [address] Phone Care Team Providers Care Heavy Equipment Service Manager Name Role Phone Boris Tyson MD Primary Care Provider [phone] Encounter Details Date Type Department Care Team (Late st Contact Info) Description 08/25/2023 Orders Only [facility] [place], [address] [facility] [place] [address] Delisa Salas PA Amyloid nephropathy [...] hypertension documented in this encounter Care Teams Heavy Equipment Service Manager Relationship Specialty Start Date End Date Boris Tyson MD [address] [facility] [address] [place] [address] PCP - General Internal Medicine 04/04/22 documented as of this encounter
--- OUTSIDE RECORDS SUMMARY | 2025-02-24 16:30 | XMS_ITS | Encounter Summary ---
Author Organization [facility] [place], Address [address] [place] [address] Phone Care Team Providers Care Class C Driver Name Role Phone Boris Tyson MD Primary Care Provider [phone] Encounter Details Date Type Department Care Team (Late st Contact Info) Description 04/04/2022 Documentation Only [facility] [place], [address] [place] [phone] Boris Tyson MD [address] [place] [id number] Social History Tobacco Use Types Packs/Day Years [...] on filedocumented in this encounter Care Teams Class C Driver Relationship Specialty Start Date End Date Boris Tyson MD [address] [place] [address] [address] [place] [address] PCP - General Internal Medicine 04/04/22 documented as of this encounter
--- OUTSIDE RECORDS SUMMARY | 2025-02-24 16:30 | XMS_ITS | Encounter Summary ---
Author Organization [facility] Address [address] [place] [address] Phone Care Team Providers Care Cocoa Roaster Name Role Phone Boris Tyson MD Primary Care Provider [phone] Encounter Details Date Type Department Care Team (Late st Contact Info) Description 10/24/2023 Documentation Only [facility] [place], [address] [place] [address] Delisa Salas PA Social History [...] on filedocumented in this encounter Care Teams Cocoa Roaster Relationship Specialty Start Date End Date Boris Tyson MD [address] [address] PCP - General Internal Medicine 04/04/22 documented as of this encounter
--- OUTSIDE RECORDS SUMMARY | 2025-02-24 16:30 | XMS_ITS | Clinical Summary ---
Author Organization 175 [facility] Address 175 [place] [address] Phone Care Team Providers Care Pattern Illustrator Name Role Phone Boris Tyson MD Primary Care Provider [phone] Allergies Active Allergy Reactions Criticality Noted Date Comments Bacitracin 01/08/2021 Positive patch testing Olopatadine 06/14/2020 Facial and eyelid itching and irritation Potassium Dichromate 01/08/2021 Positive patch testing Medications bepotastine (Bepreve) 1.5 % drops APPLY 1 DROP TO THE EYE 2 TIMES DAILY. 08/10/20 24 Active levocetirizin e (XYZAL) 5 mg tablet Take 1 Tablet by mouth every evening. 04/28/20 24 Active traMADol ER (ULTRAM-ER) 100 mg 24 hr tablet Take 1 Tablet by mouth daily. Active lisinopriL (PRINIVIL,ZES TRIL) 2.5 mg tablet Take 1 Tablet by mouth daily. Active acyclovir (ZOVIRAX) 200 mg capsule Take 1 Capsule by mouth 2 times daily. Active tacrolimus (PROTOPIC) 0.1 % ointment APPLY TWICE A DAY TO AFFECTED AREAS FOR UP TO 6 WEEKS 10/24/20 22 Active clobetasoL 0.05 % shampoo Apply 1 Dose topically daily. Apply to dry scalp daily and lather in. Rinse after 5-10 minutes. Use consecutively for 2 weeks then decrease use to 3 times a week. 09/27/20 21 Active hydrocortison e 1 % topical cream APPLY A THIN LAYER TWICE DAILY FOR 7 DAYS. 08/08/20 21 Active DIETARY SUPPLEMENT ORAL Take by mouth daily. Active omeprazole (PriLOSEC) [address] capsule Take 1 capsule (20 mg total) by mouth 2 (two) times a day. 180 capsule 1 11/06/19 25 Active cetirizine (ZyrTEC) 10 mg tablet TAKE 1 TABLET BY MOUTH EVERY DAY IN THE EVENING 30 tablet 5 02/22/20 25 Active cetirizine (ZyrTEC) 10 mg tablet TAKE 1 TABLET BY MOUTH EVERY DAY IN THE EVENING 07/28/20 24 025 Discontinued Active Problems Problem Noted Date Diagnosed Date Upper respiratory tract infection 05/28/2019 Edema 07/24/2018 Hyperlipidemia 07/24/2018 Venous insufficiency 07/24/2018 Osteoarthritis of both knees 05/01/2018 Anemia 04/03/2018 Hallux valgus 04/03/2018 Sciatica 04/03/2018 Thalassemia 04/03/2018 Vitamin D deficiency 04/03/2018 Neuropathic pain 11/02/2015 Cervical spondylosis without myelopathy 07/28/20 15 Immunizations Name Administration Dates Next Due Influenza [...] HISTORICAL KNEE SURGERY; COMMENT: ACL tear at [facility] Medical History Medical History Date Comments Hallux [...] your loved ones. For example, child care centre director or elderly care for an older adult? [...] at Not on file Legal Sex Male 11:08 PM EST Gender Identity Not on file Sexual Orientation Not on file Obstetrics History Last Filed [...] PM EDT Office Visit Internal Medicine - [place] 175 [facility] [address] [place] [address] Boris Tyson MD 175 [facility] [address] [place], [place] [phone] Health Maintenance Due Date Last Done Comments DTaP,Tdap,and Td Vaccines (1 - Tdap) 1979 Colorectal Cancer Screening: Colonoscopy 10/05/2022 Hepatitis C Screening 10/05/2022 COVID-19 Vaccine ( season) 2025 07/10/2024, 03/20/2024, 10/02/2023, Additional history exists Hypertension/CHF/CAD Annual BMP Blood Test 08/17/2025 08/17/2024, 02/03/2024, 02/03/2024, Additional history exists Social Influencers of Health Screening 10/25/2025 10/25/2024 Falls Risk Assessment 11/01/2025 11/01/2024 Depression Screening 11/23/2025 11/23/2024 Cholesterol Screening (Lipid Panel) 08/05/2028 08/05/2023, 08/05/2023 Pneumococcal Vaccine: 50+ Years Completed 04/04/2023, 02/07/2023 Zoster Vaccines Completed 09/16/2023, 02/06/2023 RSV Immunization Adult Patients Completed 10/24/2023 Influenza Vaccine Completed 05/31/2024, , 07/05/2022, Additional history exists HIB Vaccines Aged Out [...] patient's age to complete this topic Meningococcal B Vaccine Aged Out No l onger eligible based on patient's age to complete this topic RSV Immunization Patients Under 20 months Aged Out No longer eligible based on patient's age to complete this topic Varicella Vaccines Aged Out No longer eligible based on patient's age to complete this topic Procedures Procedure Name Priority Date/Time Associated Diagnosis Comments HM ANNUAL BMP BLOOD TEST Routine 02/03/2024 LIPID PANEL Routine 08/05/2023 from Last 3 Months or Most Recently Relevant to Health Maintenance Results * Annual BMP Blood Test (02/03/2024) Annual BMP Blood Test Abstracted Historical Provider HEALTH MAINTENANCE Final Result * Lipid panel (08/05/2023) Triglycerides 0 mg/dL Comment:No interpretation, A bstracted Cholesterol 0 mg/dL Comment:No interpretation, A bstracted HDL 0 mg/dL Comment:No interpretation, A bstracted LDL Cholesterol 0 mg/dL Comment:No interpretation, A bstracted Blood Venous blood specimen / Unknown Historical Provider LAB BLOOD ORDERABLES Olamide l Result from Last 3 Months or Most Recently Relevant to Health Maintenance Insurance [employer] Care Teams Pattern Illustrator Relationship Specialty Start Date End Date Boris Tyson MD 175 [facility] [address] [place], [place] [phone] PCP - General Internal Medicine 11/03/18
--- OUTSIDE RECORDS SUMMARY | 2025-02-24 16:30 | XMS_ITS | Encounter Summary ---
Author Organization [facility], Address [address] [place] [address] Phone Care Team Providers Care Ms Sql Server Developer Name Role Phone Boris Tyson MD Primary Care Provider [phone] Encounter Details Date Type Department Care Team (Late st Contact Info) Description 12/10/2022 Documentation Only [facility], [address] [place] [address] Olivia Amaro [place] [address] [place] [address] Social History Tobacco Use Types Packs/Day Years [...] on filedocumented in this encounter Care Teams Ms Sql Server Developer Relationship Specialty Start Date End Date Boris Tyson MD 175 [facility] [address] [place] [address] PCP - General Internal Medicine 04/04/22 documented as of this encounter
--- OUTSIDE RECORDS SUMMARY | 2025-02-24 16:30 | XMS_ITS | Encounter Summary ---
Author Organization [facility] Address [address] [place] [address] Phone Care Team Providers Care Milking Worker Name Role Phone Boris Tyson MD Primary Care Provider [phone] Encounter Details Date Type Department Care Team (Late st Contact Info) Description 12/17/2022 Documentation Only [facility] [place], [address] [place] [address] Delisa Salas PA Social History [...] on filedocumented in this encounter Care Teams Milking Worker Relationship Specialty Start Date End Date Boris Tyson MD [address] [address] PCP - General Internal Medicine 04/04/22 documented as of this encounter
--- OUTSIDE RECORDS SUMMARY | 2025-02-24 16:30 | XMS_ITS | Encounter Summary ---
Author Organization [facility] Address [address] [place] [address] Phone Care Team Providers Care Rocket Motor Tester Name Role Phone Boris Tyson MD Primary Care Provider [phone] Encounter Details Date Type Department Care Team (Late st Contact Info) Description 04/14/2023 Orders Only [facility] [place], [address] [place] [phone] Delisa Salas PA Amyloid nephropathy (HCC); Stage [...] MMOL/L [facility] Bicarbonate (CO2) 28 (22-29) MMOL/L [facility] Anion Gap 11 (4-17) [facility] Albumin 4.2 (3.4-4.8) GM/DL [facility] Calcium 8.9 (8.6-10.5) MG/DL [facility] Phosphorus, Serum 4.6(H) (2.5-4.5) MG/DL [facility] Est GFR Non 42 ML/MIN/1.7 3 M2 [facility] Comment: Creatinine based estimated glomerular filtration (eGFR) in adults is calculated using the National Kidney Foundation recommended 2020 CKD-EPI equation. Estimates GFR from serum creatinine, age and sex. Testing performed or reported by [facility], a Service of [facility], [address] [place] [address] Benito Combs MD, M48/M60 Tank Driver [facility]# [id number] Blood (Blood, Venous) 11/14/2023 12:45 PM EST 11/14/2023 12:46 PM EST Delisa GILES LAB BLOOD ORDERABLES Final Re sult [facility] * Iron Panel (Fe, TIBC, TSAT) (11/14/2023 12:45 PM EST) [facility] Iron 58 (45-160) MCG/DL [facility] UIBC 218 (110-370) MCG/DL [facility] TIBC 276 (155-530) MCG/DL [facility] Iron Saturation (TSat) 21 (20-55) % [facility] Comment: Testing performed or reported by [facility], a Service of [facility], [address] [place] [address] Benito Combs MD, M48/M60 Tank Driver [facility]# [id number] Blood (Blood, Venous) 11/14/2023 12:45 PM EST 11/14/2023 12:46 PM EST Delisa GILES LAB BLOOD ORDERABLES Final Re sult Performing Organization Address [facility]/ZIP Co de Phone Number [facility] * (ABNORMAL) CBC and differential (11/14/2023 12:45 PM EST) [facility] White Blood Cells 12.9(H) (4.0-11.0 ) K/MM3 [facility] RBC 5.11 (4.70-6.1 0) M/MM3 [facility] Hgb 11.1(L) (13.7-17. 1) GM/DL [facility] Hematocrit 34.5(L) (40.5-50. 0) % [facility] MCV 67.5(L) (80.0-94. 0) FL [facility] MCH 21.7(L) (27.0-34. 0) PG [facility] MCHC 32.2(L) (33.0-37. 0) g/dL [facility] Platelets 142(L) (150-460) K/MM3 [facility] RDW-SD 38.3 (<47.0) FL [facility] MPV NOT MEASURED (9.4-12.4 ) [place] [facility] nRBC Count 0.0 #/100 WBC'S [facility] NRBC Absolute 0.0 K/MM3 [facility] Neutrophils % Auto 82.0(H) (44-76) % [facility] Lymphs 4.0(L) (15-43) % [facility] Monocytes Absolute 11.0(H) (4.5-10.5 ) % [facility] Eosinophils 1.0 (0-6) % [facility] Immature Granulocytes 2.0 % [facility] Neutrophils Abs Auto 10.6(H) (1.3-7.0) K/MM3 [facility] Lymphocytes Relative 0.5(L) (0.8-3.1) K/MM3 [facility] Monocytes 1.4(H) (0.4-1.3) K/MM3 [facility] Eosinophils Relative 0.1 (0.0-0.4) K/MM3 [facility] Granulocytes Absolute 0.3 K/MM3 [facility] RBC Morphology MODERATE [facility] Comment: HYPOCHROMIA MODERATE MICROCYTES MODERATE OVALOCYTES MODERATE POLYCHROMASIA FEW SCHISTOCYTES Platelet Estimate SLIGHTLY DECREASED [facility] Comment: Testing performed or reported by [facility], a Service of [facility], [address] [place] [address] Benito Combs MD, M48/M60 Tank Driver CLIA# [id number] Blood (Blood, Venous) 11/14/2023 12:45 PM EST 11/14/2023 12:46 PM EST Delisa GILES LAB BLOOD ORDERABLES Final Re sult [facility] * (ABNORMAL) Urine Protein / creatinine ratio (11/14/2023 12:42 PM EST) Protein/Creati ne Ratio 0.31(H) (0-0.2) [facility] Protein, Urine 57 MG/DL [facility] Creatinine, Urine 186.0 MG/DL [facility] Comment: Testing performed or reported by [facility], a Service of [address] [address] Benito Combs MD, M48/M60 Tank Driver CLIA# [id number] Urine (Urine, Clean Catch) 11/14/2023 12:42 PM EST 11/14/2023 12:46 PM EST Delisa GILES LAB URINE ORDERABLES Final Re sult Performing Organization Address [facility] de Phone Number [facility] * (ABNORMAL) Urinalysis with microscopic (11/14/2023 12:42 PM EST) Appearance YELLOW [facility] Comment:CLEAR Specific Holt 1.014 (1.002-1. 030) [facility] pH Urine 7.0 (5.0-8.0) [facility] Albumin, Urine 1+(A) (NEG) [facility] Glucose, Ur NEGATIVE (NEG) [facility] Ketones, Urine NEGATIVE (NEG) [facility] Bilirubin Urine NEGATIVE (NEG) [facility] Hemoglobin Presence in Urine NEGATIVE (NEG) [facility] Nitrite, Urine NEGATIVE (NEG) [facility] Leukocyte Esterase Urine NEGATIVE (NEG) [facility] Urobilinogen Urine NORMAL (NORM) MG/DL [facility] WBC, Urine NONE SEEN (0-5) /HPF [facility] RBC, Urine NONE SEEN (0-3) /HPF [facility] Hyaline Casts, Urine 1 (0-2) LPF [facility] Comment: Testing performed or reported by [facility], a Service of [facility], [address] [place] [address] Benito Combs MD, M48/M60 Tank Driver [facility]# [id number] Urine (Urine, Clean Catch) 11/14/2023 12:42 PM EST 11/14/2023 12:46 PM EST Delisa GILES LAB URINE ORDERABLES Final Re sult Performing Organization Address [facility] Co de Phone Number [facility] documented in this encounter Visit Diagnoses Diagnosis Amyloid nephropathy (HCC) Stage 3b chronic kidney disease (HCC) Proteinuria, not otherwise specified Essential (primary) hypertension documented in this encounter Care Teams Rocket Motor Tester Relationship Specialty Start Date End Date Boris Tyson MD [address] [place] [id number] PCP - General Internal Medicine 04/04/22 documented as of this encounter
--- OUTSIDE RECORDS SUMMARY | 2025-02-24 16:30 | XMS_ITS | Encounter Summary ---
Author Organization [facility] Address [address] [place] [address] Phone Care Team Providers Care Information And Data Architect Analyst Name Role Phone Boris Tyson MD Primary Care Provider [phone] Encounter Details Date Type Department Care Team (Late st Contact Info) Description 08/29/2022 Documentation Only [facility] [place], [address] [place] [address] Delisa Salas PA Social History [...] on filedocumented in this encounter Care Teams Information And Data Architect Analyst Relationship Specialty Start Date End Date Boris Tyson MD [address] [address] PCP - General Internal Medicine 04/04/22 documented as of this encounter
--- OUTSIDE RECORDS SUMMARY | 2025-02-24 16:30 | XMS_ITS | Clinical Summary ---
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 12/17/2022 Serum creatinine above reference range Proteinuria 09/12/2022 Stage 3a chronic kidney disease 06/07/2022 Simple renal cyst 06/07/2022 Edema 05/29/2022 Hyperlipidemia 05/29/2022 Anemia 05/29/2022 Vitamin D deficiency 05/29/2022 Immunizations Immunization Administration Dates Next Due Influenza, MDCK, PF, [...] Colorectal Cancer Screening: Sigmoidoscopy 2007 Pneumococcal Vaccine: 50+ Years (2 of 2 - PCV) 04/04/2024 04/04/2023, 02/07/2023 Influenza Vaccine (Season Ended) 2025 06/30/2021, 07/07/2020, 07/13/2019, Additional history exists Pneumococcal Vaccine: Peds (0 to 5 Years) and At-Risk Patients (6 to 49 Years) Discontinued 04/04/2023, 02/07/2023 Hepatitis B Vaccine Aged Out No longe r eligible based on patient's age to complete this topic [facility] [employer] Commercial Care Teams Automatic Spooler Operator Relationship Specialty Start Date End Date Boris Tyson MD [address] [place] [id number] PCP - General Internal Medicine 04/04/22
== END 2025-02-24 15:08 | disposition home or self-care (01) ==
LOC: HO.HKAS 14:25
PROVIDERS: PCP Internal Medicine; Visit Provider Internal Medicine Nephrology
DX: E85.4 Organ-limited amyloidosis (principal); N08 Glomerular disorders in diseases classified elsewhere; N18.32 Chronic kidney disease, stage 3b; D63.1 Anemia in chronic kidney disease; I10 Essential (primary) hypertension; E87.1 Hypo-osmolality and hyponatremia; E87.5 Hyperkalemia
CPT/HCPCS: 99214

== ENCOUNTER → 2025-02-24 14:25 | Outpatient (BNVA) | payer OTHER, SELFPAY | PROVIDERS: PCP Internal Medicine; Visit Provider Internal Medicine Nephrology ==

== ENCOUNTER 2025-03-03 14:34 | Outpatient (REF) | payer OTHER, SELFPAY ==
--- OUTSIDE RECORDS SUMMARY | 2025-03-03 15:19 | XMS_ITS | Encounter Summary ---
Author Organization [facility] Address [address] [place] [address] Phone Care Team Providers Care Supply Manager Name Role Phone Boris Tyson MD Primary Care Provider Encounter Details Date Type Department Care Team (Late st Contact Info) Description 12/17/2022 Documentation Only [facility] [place], [address] [place] [address] Delisa Salas PA Social History [...] on filedocumented in this encounter Care Teams Supply Manager Relationship Specialty Start Date End Date Boris Tyson MD [address] [address] PCP - General Internal Medicine 04/04/22 documented as of this encounter
--- OUTSIDE RECORDS SUMMARY | 2025-03-03 15:19 | XMS_ITS | Encounter Summary ---
Author Organization [facility] Address [address] [place] [address] Phone Care Team Providers Care Medical Administrative Specialist Name Role Phone Boris Tyson MD Primary Care Provider [phone] Encounter Details Date Type Department Care Team (Late st Contact Info) Description 08/29/2022 Documentation Only [facility] [place], [address] [place] [address] Delisa Salas PA Social History [...] on filedocumented in this encounter Care Teams Medical Administrative Specialist Relationship Specialty Start Date End Date Boris Tyson MD [address] [address] PCP - General Internal Medicine 04/04/22 documented as of this encounter
--- OUTSIDE RECORDS SUMMARY | 2025-03-03 15:19 | XMS_ITS | Clinical Summary ---
Author Organization 175 [facility] Address [address] [place] [address] Phone Care Team Providers Care Branch Account Manager Name Role Phone Boris Tyson MD Primary Care Provider [phone] Allergies Active Allergy Reactions Criticality Noted Date [...] HISTORICAL KNEE SURGERY; COMMENT: ACL tear at [facility] Medical History Medical History Date Comments Hallux [...] for your loved ones. For example, child caregiver or elderly care for an older adult? [...] PM EDT Office Visit Internal Medicine - [place] 175 [facility] [address] [place] [address] Boris Tyson MD 175 [facility] [address] [place], [place] [phone] Health Maintenance Due Date Last Done Comments [...] to Health Maintenance Insurance [employer] Care Teams Branch Account Manager Relationship Specialty Start Date End Date Boris Tyson MD 175 [facility] [address] [place], [place] [phone] PCP - General Internal Medicine 11/03/18
--- OUTSIDE RECORDS SUMMARY | 2025-03-03 15:19 | XMS_ITS | Encounter Summary ---
Author Organization [facility] Address [address] [place] [address] Phone Care Team Providers Care Food Photographer Name Role Phone Boris Tyson MD Primary Care Provider [phone] Encounter Details Date Type Department Care Team (Late st Contact Info) Description 08/25/2023 Orders Only [facility] [place], [address] [facility] [place] [address] Delisa Salas PA Amyloid nephropathy [...] hypertension documented in this encounter Care Teams Food Photographer Relationship Specialty Start Date End Date Boris Tyson MD 175 [facility] [address] [place] [address] PCP - General Internal Medicine 04/04/22 documented as of this encounter
--- OUTSIDE RECORDS SUMMARY | 2025-03-03 15:19 | XMS_ITS | Encounter Summary ---
Author Organization [facility] Address [address] [place] [address] Phone Care Team Providers Care Food Service Driver Name Role Phone Boris Tyson MD Primary Care Provider [phone] Encounter Details Date Type Department Care Team (Late st Contact Info) Description 04/14/2023 Orders Only [facility] [place], [address] [place] [phone] Delisa Salas PA Amyloid nephropathy (HCC); Stage [...] MMOL/L [facility] Bicarbonate (CO2) 28 (22-29) MMOL/L [facility] Anion Gap 11 (4-17) [facility] Albumin 4.2 (3.4-4.8) GM/DL [facility] Calcium 8.9 (8.6-10.5) MG/DL [facility] Phosphorus, Serum 4.6(H) (2.5-4.5) MG/DL [facility] Est GFR Non 42 ML/MIN/1.7 3 M2 [facility] Comment: Creatinine based estimated glomerular filtration (eGFR) in adults is calculated using the National Kidney Foundation recommended 2020 CKD-EPI equation. Estimates GFR from serum creatinine, age and sex. Testing performed or reported by [facility], a Service of [facility], [address] [place] [address] Benito Combs MD, Calibration Technician [facility]# [id number] Blood (Blood, Venous) 11/14/2023 12:45 PM EST 11/14/2023 12:46 PM EST Delisa GILES LAB BLOOD ORDERABLES Final Re sult [facility] * Iron Panel (Fe, TIBC, TSAT) (11/14/2023 12:45 PM EST) [facility] Iron 58 (45-160) MCG/DL [facility] UIBC 218 (110-370) MCG/DL [facility] TIBC 276 (155-530) MCG/DL [facility] Iron Saturation (TSat) 21 (20-55) % [facility] Comment: Testing performed or reported by [facility], a Service of [facility], [address] [place] [address] Benito Combs MD, Calibration Technician [facility]# [id number] Blood (Blood, Venous) 11/14/2023 12:45 PM EST 11/14/2023 12:46 PM EST Delisa GILES LAB BLOOD ORDERABLES Final Re sult Performing Organization Address [facility]/ZIP Co de Phone Number [facility] * (ABNORMAL) CBC and differential (11/14/2023 12:45 PM EST) [facility] White Blood Cells 12.9(H) (4.0-11.0 ) K/MM3 [facility] RBC 5.11 (4.70-6.1 0) M/MM3 [facility] Hgb 11.1(L) (13.7-17. 1) GM/DL [facility] Hematocrit 34.5(L) (40.5-50. 0) % [facility] MCV 67.5(L) (80.0-94. 0) FL [facility] MCH 21.7(L) (27.0-34. 0) PG [facility] MCHC 32.2(L) (33.0-37. 0) g/dL [facility] Platelets 142(L) (150-460) K/MM3 [facility] RDW-SD 38.3 (<47.0) FL [facility] MPV NOT MEASURED (9.4-12.4 ) [place] [facility] nRBC Count 0.0 #/100 WBC'S [facility] NRBC Absolute 0.0 K/MM3 [facility] Neutrophils % Auto 82.0(H) (44-76) % [facility] Lymphs 4.0(L) (15-43) % [facility] Monocytes Absolute 11.0(H) (4.5-10.5 ) % [facility] Eosinophils 1.0 (0-6) % [facility] Immature Granulocytes 2.0 % [facility] Neutrophils Abs Auto 10.6(H) (1.3-7.0) K/MM3 [facility] Lymphocytes Relative 0.5(L) (0.8-3.1) K/MM3 [facility] Monocytes 1.4(H) (0.4-1.3) K/MM3 [facility] Eosinophils Relative 0.1 (0.0-0.4) K/MM3 [facility] Granulocytes Absolute 0.3 K/MM3 [facility] RBC Morphology MODERATE [facility] Comment: HYPOCHROMIA MODERATE MICROCYTES MODERATE OVALOCYTES MODERATE POLYCHROMASIA FEW SCHISTOCYTES Platelet Estimate SLIGHTLY DECREASED [facility] Comment: Testing performed or reported by [facility], a Service of [facility], [address] [place] [address] Benito Combs MD, Calibration Technician CLIA# [id number] Blood (Blood, Venous) 11/14/2023 12:45 PM EST 11/14/2023 12:46 PM EST Delisa GILES LAB BLOOD ORDERABLES Final Re sult [facility] * (ABNORMAL) Urine Protein / creatinine ratio (11/14/2023 12:42 PM EST) Protein/Creati ne Ratio 0.31(H) (0-0.2) [facility] Protein, Urine 57 MG/DL [facility] Creatinine, Urine 186.0 MG/DL [facility] Comment: Testing performed or reported by [facility], a Service of [address] [address] Benito Combs MD, Calibration Technician CLIA# [id number] Urine (Urine, Clean Catch) 11/14/2023 12:42 PM EST 11/14/2023 12:46 PM EST Delisa GILES LAB URINE ORDERABLES Final Re sult Performing Organization Address [facility] de Phone Number [facility] * (ABNORMAL) Urinalysis with microscopic (11/14/2023 12:42 PM EST) Appearance YELLOW [facility] Comment:CLEAR Specific Draper 1.014 (1.002-1. 030) [facility] pH Urine 7.0 (5.0-8.0) [facility] Albumin, Urine 1+(A) (NEG) [facility] Glucose, Ur NEGATIVE (NEG) [facility] Ketones, Urine NEGATIVE (NEG) [facility] Bilirubin Urine NEGATIVE (NEG) [facility] Hemoglobin Presence in Urine NEGATIVE (NEG) [facility] Nitrite, Urine NEGATIVE (NEG) [facility] Leukocyte Esterase Urine NEGATIVE (NEG) [facility] Urobilinogen Urine NORMAL (NORM) MG/DL [facility] WBC, Urine NONE SEEN (0-5) /HPF [facility] RBC, Urine NONE SEEN (0-3) /HPF [facility] Hyaline Casts, Urine 1 (0-2) LPF [facility] Comment: Testing performed or reported by [facility], a Service of [facility], [address] [place] [address] Benito Combs MD, Calibration Technician [facility]# [id number] Urine (Urine, Clean Catch) 11/14/2023 12:42 PM EST 11/14/2023 12:46 PM EST Delisa GILES LAB URINE ORDERABLES Final Re sult Performing Organization Address [facility] Co de Phone Number [facility] documented in this encounter Visit Diagnoses Diagnosis Amyloid nephropathy (HCC) Stage 3b chronic kidney disease (HCC) Proteinuria, not otherwise specified Essential (primary) hypertension documented in this encounter Care Teams Food Service Driver Relationship Specialty Start Date End Date Boris Tyson MD [address] [place] [address] PCP - General Internal Medicine 04/04/22 documented as of this encounter
--- OUTSIDE RECORDS SUMMARY | 2025-03-03 15:19 | XMS_ITS | Clinical Summary ---
Author Organization [facility] Address [address] [facility] [address] [place] [address] Phone Care Team Providers Care Public Message Service Supervisor Name Role Phone Boris Tyson MD Primary Care Provider [phone] Allergies Active Allergy Reactions Criticality Noted Date [...] patient's age to complete this topic Insurance [employer] Commercial Care Teams Public Message Service Supervisor Relationship Specialty Start Date End Date Boris Tyson MD [address] [place] [address] PCP - General Internal Medicine 04/04/22
--- OUTSIDE RECORDS SUMMARY | 2025-03-03 15:19 | XMS_ITS | Encounter Summary ---
Author Organization [facility] Address [address] [place] [address] Phone Care Team Providers Care Home Appliances Mechanic Name Role Phone Boris Tyson MD Primary Care Provider [phone] Encounter Details Date Type Department Care Team (Late st Contact Info) Description 10/24/2023 Documentation Only [facility] [place], [address] [place] [address] Delisa Salas PA Social History [...] on filedocumented in this encounter Care Teams Home Appliances Mechanic Relationship Specialty Start Date End Date Boris Tyson MD [address] [address] PCP - General Internal Medicine 04/04/22 documented as of this encounter
--- OUTSIDE RECORDS SUMMARY | 2025-03-03 15:19 | XMS_ITS | Encounter Summary ---
Author Organization [facility], Address [address] [place] [address] Phone Care Team Providers Care Account Consultant Name Role Phone Boris Tyson MD Primary Care Provider [phone] Encounter Details Date Type Department Care Team (Late st Contact Info) Description 04/04/2022 Documentation Only [facility], [address] [place] [phone] Boris Tyson MD [address] [place] [address] Social History Tobacco Use Types Packs/Day Years [...] on filedocumented in this encounter Care Teams Account Consultant Relationship Specialty Start Date End Date Boris Tyson MD [address] [place] [address] [address] [place] [address] PCP - General Internal Medicine 04/04/22 documented as of this encounter
--- OUTSIDE RECORDS SUMMARY | 2025-03-03 15:19 | XMS_ITS | Clinical Summary ---
Author Organization [facility] Address [address] [place] [address] Care Team Providers Care Tennis Ball Coverer Hand Name Role Phone Boris Tyson MD Primary [...] Group Subscriber ID Effective Dates Phone Address [facility] [id number] 2021-Present 1 [facility] [address] [place] [phone] O Care Teams Tennis Ball Coverer Hand Relationship Specialty Start Date End Date Boris Tyson MD PCP - General Internal Medicine 03/18/22
--- OUTSIDE RECORDS SUMMARY | 2025-03-03 15:19 | XMS_ITS | Encounter Summary ---
Author Organization [facility], Address [address] [place] [address] Phone Care Team Providers Care Hearing Instrument Specialist Name Role Phone Boris Tyson MD Primary Care Provider [phone] Encounter Details Date Type Department Care Team (Late st Contact Info) Description 12/10/2022 Documentation Only [facility], [address] [place] [address] Olivia Amaro [place] [address] [place] [address] Social History Tobacco Use Types Packs/Day Years [...] on filedocumented in this encounter Care Teams Hearing Instrument Specialist Relationship Specialty Start Date End Date Boris Tyson MD 175 [facility] 200 [place] [address] PCP - General Internal Medicine 04/04/22 documented as of this encounter
[2025-03-03 17:56] LABS: Anion Gap 12 (12-20); Carbon Dioxide 24 mmol/L (22-29); Chloride 97 mmol/L (96-108); Potassium 5.3 mmol/L (3.3-5.1); Sodium 128 mmol/L (135-145)
== END 2025-03-03 14:35 | disposition home or self-care (01) ==
LOC: HO.HKASLDS 14:34
PROVIDERS: Visit Provider Internal Medicine Nephrology
DX: E87.1 Hypo-osmolality and hyponatremia (principal); I10 Essential (primary) hypertension; D63.1 Anemia in chronic kidney disease; N18.32 Chronic kidney disease, stage 3b; N08 Glomerular disorders in diseases classified elsewhere; E85.4 Organ-limited amyloidosis
CPT/HCPCS: 36415; 80051

== ENCOUNTER 2025-04-05 10:38 | Outpatient (REF) | payer OTHER, SELFPAY ==
--- OUTSIDE RECORDS SUMMARY | 2025-04-05 12:30 | XMS_ITS | Encounter Summary ---
Author Organization [facility], Address [address] [place] [address] Phone Care Team Providers Care Ice Cream Freezer Helper Name Role Phone Boris Tyson MD Primary Care Provider [phone] Encounter Details Date Type Department Care Team (Late st Contact Info) Description 08/29/2022 Documentation Only [facility], [address] [place] [address] Delisa Salas PA Social History [...] on filedocumented in this encounter Care Teams Ice Cream Freezer Helper Relationship Specialty Start Date End Date Boris Tyson MD [address] [address] PCP - General Internal Medicine 04/04/22 documented as of this encounter
[2025-04-05 18:36] LABS: Anion Gap 12 (12-20); Blood Urea Nitrogen 31 mg/dL (9-16); Carbon Dioxide 24 mmol/L (22-29); Chloride 100 mmol/L (96-108); Estimated Glomerular Filt Rate 41; Potassium 4.8 mmol/L (3.3-5.1); Sodium 131 mmol/L (135-145)
== END 2025-04-05 10:39 | disposition home or self-care (01) ==
LOC: HO.HKASLDS 10:38
PROVIDERS: Visit Provider Internal Medicine Nephrology
DX: E87.5 Hyperkalemia (principal)
CPT/HCPCS: 36415; 80051; 82565; 84520

== ENCOUNTER 2025-05-31 13:18 | Outpatient (REF) | payer OTHER, SELFPAY ==
--- OUTSIDE RECORDS SUMMARY | 2025-05-31 13:58 | XMS_ITS | Clinical Summary ---
Author Organization 175 [facility] Address 175 [place] [address] Phone Care Team Providers Care Manager Home Improvement Name Role Phone Boris Tyson MD Primary Care Provider [phone] Allergies Active Allergy Reactions Criticality Noted Date Comments Bacitracin 01/08/2021 Positive patch testing Olopatadine 06/14/2020 Facial and eyelid itching and irritation Potassium Dichromate 01/08/2021 Positive patch testing Medications levocetirizine (XYZAL) 5 mg tablet Take 1 Tablet by mouth every evening. 4 Active traMADol ER (ULTRAM-ER) 100 mg 24 hr tablet Take 1 Tablet by mouth daily. Active lisinopriL (PRINIVIL,ZESTR IL) 2.5 mg tablet Take 1 Tablet by mouth daily. Active acyclovir (ZOVIRAX) 200 mg capsule Take 1 Capsule by mouth 2 times daily. Active clobetasoL 0.05 % shampoo Apply 1 [...] a day. 180 capsule 1 5 Active cetirizine (ZyrTEC) 10 mg tablet TAKE 1 TABLET BY MOUTH EVERY DAY IN THE EVENING 30 tablet 5 5 Active bepotastine (Bepreve) 1.5 % drops Administer 1 drop into both eyes 2 (two) times a day. 5 mL 1 5 Active sodium polystyrene (KAYEXALATE) powder Take 30 g by mouth 1 (one) time per week. 5 Active cholecalciferol (VITAMIN D-3) 25 mcg (1,000 unit) tablet Take 1 tablet (1,000 Units total) by mouth daily. Active tacrolimus (PROTOPIC) 0.1 % ointment Apply topically 2 (two) times a day. 100 g 11 5 Active Active Problems Problem Noted Date Diagnosed Date Upper respiratory tract infection 05/28/2019 Edema 07/24/2018 Hyperlipidemia 07/24/2018 Venous insufficiency 07/24/2018 Osteoarthritis of both knees 05/01/2018 Anemia 04/03/2018 Hallux valgus 04/03/2018 Sciatica 04/03/2018 Thalassemia 04/03/2018 Vitamin D deficiency 04/03/2018 Neuropathic pain 11/02/2015 Cervical spondylosis without myelopathy 07/28/20 15 Encounters Date Type Department Care Team Description 04/05/2025 10:00 AM EDT Office Visit Internal Medicine - [address] [address] Boris Tyson MD Primary hypertension (Primary Dx); Light chain (AL) amyloidosis ([facility] V24, [facility] V28); Seasonal allergic rhinitis due to pollen; Eczema, unspecified type from Last 3 Months Immunizations Name Administration [...] tear at [facility] Medical History Medical History Date [...] for your loved ones. For example, children's institution attendant or elderly care for an older adult? [...] Sign Reading Time Taken Comments Blood Pressure 120/80 04/05/2025 10:00 AM EDT Pulse 72 04/05/2025 10:00 AM EDT Temperature 35.9 C (96.6 F) 04/05/2025 10:00 AM EDT Respiratory Rate - - Oxygen Saturation 99% 04/05/2025 10: 00 AM EDT Inhaled Oxygen Concentration - - Weight 85.2 kg (187 lb 12.8 oz) 025 10:00 AM EDT Height - - Body Mass Index - - Plan of Treatment Upcoming Encounters Date Type Department Care Team (Late st Contact Info) Description 09/13/2025 9:30 AM EST Office Visit Internal Medicine - [place] [address] [facility] [address] [place] [phone] Boris Tyson MD [address] [facility] [address] [place] [address] Health Maintenance Due Date Last Done Comments DTaP,Tdap,and Td Vaccines (1 - Tdap) 1979 Hepatitis C Screening 10/05/2022 Influenza Vaccine (#1) 2025 , 09/29/2023, 07/05/2022, Additional history exists Social Influencers of Health Screening 10/25/2025 10/25/2024 Falls Risk Assessment 11/01/2025 11/01/2024 Hypertension/CHF/CAD Annual BMP Blood Test 02/22/2026 02/22/2025, 08/17/2024, 02/03/2024, Additional history exists Cholesterol Screening (Lipid Panel) 08/05/2028 08/05/2023, 08/05/2023 Colorectal Cancer Screening: Colonoscopy 10/02/2033 10/02/2023 Pneumococcal Vaccine: 50+ Years Completed 04/04/2023, 02/07/2023 Zoster Vaccines Completed 09/16/2023, 02/06/2023 RSV Immunization Adult Patients Completed 10/24/2023 Depression Screening Completed 11/23/2024 COVID-19 Vaccine Completed 04/15/2025, , 03/20/2024, Additional history exists HIB Vaccines Aged Out [...] Comments ANNUAL BMP BLOOD TEST Routine 02/03/2024 EXTERNAL COLONOSCOPY REPORT Routine 10/02/2023 9:03 AM EST LIPID PANEL Routine 08/05/2023 from Last 3 Months or Most Recently Relevant to Health Maintenance Results * Annual BMP Blood Test (02/03/2024) Annual BMP Blood Test Abstracted [facility] Provider HEALTH MAINTENANCE Final Result * External Colonoscopy Report (10/02/2023 9:03 AM EST) Anatomical Region Laterality Modality Endoscopy [facility] Provider GI~PROCEDURE ORDERABLES F inal Result * Lipid panel (08/05/2023) Triglycerides 0 mg/dL Comment:No interpretation, A bstracted Cholesterol 0 mg/dL Comment:No interpretation, A bstracted HDL 0 mg/dL Comment:No interpretation, A bstracted LDL Cholesterol 0 mg/dL Comment:No interpretation, A bstracted Blood Venous blood specimen / Unknown [facility] Provider LAB BLOOD ORDERABLES Olamide l Result from Last 3 Months or Most Recently Relevant to Health Maintenance Insurance [employer] Care Teams Manager Home Improvement Relationship Specialty Start Date End Date Boris Tyson MD [address] [place] [address] PCP - General Internal Medicine 11/03/18
--- OUTSIDE RECORDS SUMMARY | 2025-05-31 13:58 | XMS_ITS | Clinical Summary ---
Author Organization [facility] Address [address] [place] [address] Care Team Providers Care Blow Pit Helper Name Role Phone Boris Tyson MD [...] 63 06/03/2022 11:55 AM EDT Temperature 36.7 C (98.1 F) 01/29/2023 11:14 AM EDT Respiratory Rate - - Oxygen [...] 1 - PCV) 2023 Influenza Vaccine (#1) 2025 , 07/07/2020, 07/13/2019, Additional history exists RSV [...] Group Subscriber ID Effective Dates Phone Address [facility] [id number] 2021-Present [address] [facility] [address] [place] [address] [facility] Care Teams Blow Pit Helper Relationship Specialty Start Date End Date Boris Tyson MD PCP - General Internal Medicine 03/18/22
--- OUTSIDE RECORDS SUMMARY | 2025-05-31 13:58 | XMS_ITS | Clinical Summary ---
Author Organization [facility] Address [address] [facility] [address] [place] [address] Phone Care Team Providers Care Crusher Machine Operator Name Role Phone Boris Tyson MD Primary Care Provider [phone] Allergies Active Allergy Reactions Criticality Noted Date [...] PCV) 04/04/2024 04/04/2023, 02/07/2023 Influenza Vaccine (#1) 2025 , 07/07/2020, 07/13/2019, Additional history exists Pneumococcal Vaccine: Peds (0 to 5 Years) and At-Risk Patients (6 to 49 Years) Discontinued 04/04/2023, 02/07/2023 Hepatitis B Vaccine Aged Out No longe r eligible based on patient's age to complete this topic [facility] [employer] Commercial Care Teams Crusher Machine Operator Relationship Specialty Start Date End Date Boris Tyson MD [address] [place] [address] PCP - General Internal Medicine 04/04/22
--- OUTSIDE RECORDS SUMMARY | 2025-05-31 13:58 | XMS_ITS | Encounter Summary ---
Author Organization [facility] Address [address] [facility] [address] [place] [address] Phone Care Team Providers Care Warrant Clerk Name Role Phone Boris Tyson MD Primary Care Provider [phone] Nai Niño MD Unavailable [phone] Michelle Huerta Unavailable [email or web address] Encounter Details Date Type Department Care Team (Late st Contact Info) Description 10/24/2023 Documentation [facility], Division of Hematologic Oncology, [facility] [address] [facility] 7th [place] [address] Maribel Jerry, RN [address] [facility] [place] [address] [email or web address] Social History Tobacco Use Types Packs/Day Years Used Date Smoking Tobacco: Never Smokeless Tobacco: Never Alcohol Use Standard Drinks/Week Comments Yes 1 (1 standard drink = 0.6 oz pur e alcohol) occas Education Answer Date Recorded Are you interested in more education? Not on rd e 02/22/2023 Are you concerned about learning? Not on file 02/22/2023 No 02/22/2023 No 02/22/2023 Digital Access Answer Date Recorded No 03/25/2023 No 03/25/2023 Reliable internet access at home? Not on file 03/25/2023 Device with a working camera? Not on file Sex and Gender Information Value Date Recorded Sex Assigned at Male 05/15/2021 12:03 PM EDT Legal Sex Male 12:00 PM EDT Gender Identity Male 05/15/2021 12:03 PM EDT Sexual Orientation Straight 05/15/2021 12 :03 PM EDT documented as of this encounter Plan of Treatment Upcoming Encounters Date Type Department Care Team (Late st Contact Info) Description 08/23/2025 1:30 PM EDT Blood Draw Laboratory Services, [facility] [address] [facility] 2nd [place] [address] Juve Gonzalez MD [address] [place] [address] [email or web address] 08/23/2025 2:30 PM EDT Office Visit [facility], Division of Hematologic Oncology, [facility] [address] [facility] 7th [place] [address] Juve Gonzalez MD [address] [address] [email or web address] 02/15/2026 10:45 AM EDT Office Visit [facility] [address] [facility] 1st [place] [address] Yu Elias MD [address] [place] [address] [email or web address] documented as of this encounter Visit Diagnoses Not on filedocumented in this encounter Care Teams Warrant Clerk Relationship Specialty Start Date End Date Boris Tyson MD 175 [facility] 200 [place] [address] PCP - General Internal Medicine 06/25/23 Nai Niño MD [address] [place] [address] [place] [address] Internal Medicine 08/05/23 Michelle Huerta [address] [place] [address] [place] [address] [email or web address] Donkey Doctor 09/09/23 documented as of this encounter Additional Source Comments The information contained in this document represents components of the legal health record. It is not the complete legal health record.[facility]
[2025-05-31 18:36] LABS: Anion Gap 12 (12-20); Blood Urea Nitrogen 39 mg/dL (9-16); Carbon Dioxide 22 mmol/L (22-29); Chloride 104 mmol/L (96-108); Estimated Glomerular Filt Rate 35; Potassium 5.2 mmol/L (3.3-5.1); Sodium 133 mmol/L (135-145)
== END 2025-05-31 13:19 | disposition home or self-care (01) ==
LOC: HO.HKASLDS 13:18
PROVIDERS: Visit Provider Internal Medicine Nephrology
DX: I12.9 Hypertensive chronic kidney disease with stage 1 through stage 4 chronic kidney disease, or unspecified chronic kidney disease (principal); N18.32 Chronic kidney disease, stage 3b; D63.1 Anemia in chronic kidney disease; E85.4 Organ-limited amyloidosis
CPT/HCPCS: 36415; 80051; 82565; 84520

== ENCOUNTER 2025-06-14 14:40 | Outpatient (AMB) | payer OTHER, SELFPAY ==
--- NOTE | 2025-06-14 14:58 | HO.NEPHOV_ITS ---
Vital Signs 06/14/25 15:02 Height 6 ft Weight 184 lb 6 oz BMI 25.0 BP 140/74 H Blood Pressure Location Lt brachial Position Sitting Pulse 70 Pulse Source Pulse Oximeter Pulse Oximetry (%) 99 Oxygen Delivery Method Room Air Intake Visit Reasons: 3 mo follow up General Matcher Required: No Accompanied by: Self / Same As Patient Allergies bacitracin Allergy (Verified 06/14/25 15:02) Unknown olopatadine Allergy (Verified 06/14/25 15:02) Unknown potassium dichromate Allergy (Uncoded 04/05/24 14:55) Unknown HPI Comments Details: Alo was seen in follow up for his kidney involvement with AL amyloidosis. He had seen oncologist in [facility] as well as in [facility] and [facility] in [place]. He has been getting daratumumab. He has had various investigations including cardiac MRI which was suggestive of early amyloidosis but with preserved biventricular function by echo and cardiac MRI. He was evaluated for stem cell transplant but has been put on hold for now. He has noted a decrease in exercise capacity through the course of his treatment with chemotherapy. He has been on lisinopril started by his curb setter helper. He had no regional wall motion abnormalities. His left ventricular ejection fraction was 60-65%. His left ventricular systolic function and right ventricular systolic function was normal. His left atrium was mildly dilated. There was mild dilation of the ascending aorta measuring 39 mm in the tubular section which may be normal for patient's height. He underwent a renal biopsy which showed renal amyloidosis, AL type, lambda phenotype. Diffuse amyloid deposits in glomeruli and renal arteries/ arterioles and focally in interstitium. Global glomerulosclerosis was present in 15% of total glomeruli. He had mild to moderate interstitial fibrosis and tubular atrophy. Electron microscopy showed normal based membrane. There was global effacement of foot process. Endothelial fenestration were preserved. Mesangial matrix was expanded by mildly electron dense material showing randomly arranged fibrillary substructure. Multiple measurements of the fibril widths average to 7.5 nanometer was consistent with amyloid. He had nephrotic range proteinuria. He did not have any neuropathy. He was treated with Luanne CyBord per Andromeda study. His Cytoxan dose was reduced by 20% for fatigue and anemia. His Velcade was held for question of neuropathy/ myopathy. His stem cell collection was done at [facility]( Dr Gonzalez). He had proximal myopathy and underwent skeletal muscle biopsy which showed amyloid. He had been having anemia and receives Retacrit on a regular basis. He is feeling better compared to 6 months ago. He denies any chest pain, shortness of breath, paroxysmal nocturnal dyspnea, orthopnea, pedal edema or urinary symptoms. He also had COVID infection a while ago.. His last kappa lambda ratio was 1.66. His urine protein creatinine ratio had improved to 0.16 from over 2 g. His creatinine has gone up marginally.. His Na has been fluctuant. His serum K is on higher side on K lowering medications. He is on ACEI and is closely followed up by Hematology. [facility] Medical History (Updated 02/24/25 @ 21:16 by Yves Navarrete MD) Cervical spondylosis without myelopathy Neuropathic pain Sciatica Thalassanemia Vitamin D deficiency Anemia Hallux valgus History of tear of ACL (anterior cruciate ligament) Osteoarthritis of both knees Venous insufficiency Hyperlipidemia Edema Upper respiratory tract infection Surgical History H/O repair of rotator cuff History of knee surgery Social History Alcohol intake: never Patient Tobacco Use Status: Never used Tobacco Review of Systems Const All systems reviewed & are unremarkable except as noted in HPI and below Physical Exam Vital Signs: Last Vital Signs Pulse 70 06/14/25 15:02 BP 140/74 H 06/14/25 15:02 Pulse Ox 99 06/14/25 15:02 Oxygen Delivery Method Room Air 06/14/25 15:02 BMI result Body Mass Index 25.0 Const General: comfortable and no acute distress Orientation/consciousness: patient oriented x3 HEENT Head: Yes normocephalic Mouth: Normal oral and palatal mucosa present Eyes EOM: EOMs intact bilaterally Neck Neck: Yes supple Resp Auscultation: clear to auscultation bilaterally Cardio Jugular venous distension: no JVD Rate: regular rate GI Palpation (GI): Soft to palpation Auscultation: normal bowel sounds General: Yes no CVA tenderness Back/Spine/Pelvis Back: no CVA tenderness Skin General skin exam: no rashes or lesions noted Neuro General: patient oriented x3 and moves all extremities Extrem General: Yes no pedal edema Results Reviewed Nephrology Results: Sodium, (135-145) 133 mmol/L L 08/05/25 Potassium, (3.3-5.1) 5.2 mmol/L H 05/31/25 Chloride, (96-108) 104 mmol/L 05/31/25 Carbon Dioxide, (22-29) 22 mmol/L 05/31/25 BUN, (9-16) 39 mg/dL H 05/31/25 Creatinine, (0.5-1.4) 1.95 mg/dL H 05/31/25 Assessment & Plan Assessment & Plan (1) Hypertension: Code(s): I10 - Essential (primary) hypertension Category: Medical Qualifiers: Hypertension type: primary hypertension Qualified Code(s): I10 - Essential (primary) hypertension (2) Hyponatremia: Code(s): E87.1 - Hypo-osmolality and hyponatremia Category: Medical (3) AL amyloid nephropathy: Code(s): E85.4 - Organ-limited amyloidosis; N08 - Glomerular disorders in diseases classified elsewhere Category: Medical (4) CKD (chronic kidney disease) stage 3, GFR 30-59 ml/min: Code(s): N18.30 - Chronic kidney disease, stage 3 unspecified Category: Medical Qualifiers: Chronic kidney disease stage 3 subtype: stage 3b (GFR 30-44) Qualified Code(s): N18.32 - Chronic kidney disease, stage 3b (5) Hyperkalemia: Code(s): E87.5 - Hyperkalemia Category: Medical Plan He has CKD due to renal biopsy proven AL amyloid (lambda phenotype) . He had been getting daratumumab. He was evaluated for stem cell transplant but has been put on hold for now. His stem cell collection was done at [facility]( Dr Gonzalez). His lisinopril is on hold due to hyperkalemia which I shall restart at a lower dose once his serum k has normalized. I increased his K lowering medication to twice a week. He had no regional wall motion abnormalities in the ECHO. His left ventricular ejection fraction was 60-65%. His left ventricular systolic function and right ventricular systolic function was normal. ( Renal biopsy showed Diffuse amyloid deposits in glomeruli and renal arteries/ arterioles and focally in interstitium. Global glomerulosclerosis was present in 15% of total glomeruli. He had mild to moderate interstitial fibrosis and tubular atrophy. Electron microscopy showed normal based membrane. There was global effacement of foot process. Endothelial fenestration were preserved. Mesangial matrix was expanded by mildly electron dense material showing randomly arranged fibrillary substructure. Multiple measurements of the fibril widths average to 7.5 nanometer was consistent with amyloid). He had nephrotic range proteinuria which has improved with supportive management. (He was treated with Luanne CyBord per Andromeda study. His Cytoxan dose was reduced by 20% for fatigue and anemia. His Velcade was held for question of neuropathy/ myopathy). He had proximal myopathy and underwent skeletal muscle biopsy which showed amyloid. He is a candidate for [facility]. All these have been explained in detail. Answered all questions & follow-up appointment was given Orders: Orders Electrolytes 2 Months E85.4 - Organ-limited amyloidosis, E87.1 - Hypo- osmolality and hyponatremia, E87.5 - Hyperkalemia, I10 - Essential (primary) hypertension, N08 - Glomerular disorders in diseases classified elsewhere, N18.32 - Chronic kidney disease, stage 3b Blood Urea Nitrogen 1 Month E85.4 - Organ-limited amyloidosis, E87.1 - Hypo- osmolality and hyponatremia, E87.5 - Hyperkalemia, I10 - Essential (primary) hypertension, N08 - Glomerular disorders in diseases classified elsewhere, N18.32 - Chronic kidney disease, stage 3b Electrolytes 1 Month E85.4 - Organ-limited amyloidosis, E87.1 - Hypo-osmolality and hyponatremia, E87.5 - Hyperkalemia, I10 - Essential (primary) hypertension, N08 - Glomerular disorders in diseases classified elsewhere, N18.32 - Chronic kidney disease, stage 3b Creatinine 2 Months E85.4 - Organ-limited amyloidosis, E87.1 - Hypo-osmolality and hyponatremia, E87.5 - Hyperkalemia, I10 - Essential (primary) hypertension, N08 - Glomerular disorders in diseases classified elsewhere, N18.32 - Chronic kidney disease, stage 3b Blood Urea Nitrogen 2 Months E85.4 - Organ-limited amyloidosis, E87.1 - Hypo- osmolality and hyponatremia, E87.5 - Hyperkalemia, I10 - Essential (primary) hypertension, N08 - Glomerular disorders in diseases classified elsewhere, N18.32 - Chronic kidney disease, stage 3b Creatinine 1 Month E85.4 - Organ-limited amyloidosis, E87.1 - Hypo-osmolality and hyponatremia, E87.5 - Hyperkalemia, I10 - Essential (primary) hypertension, N08 - Glomerular disorders in diseases classified elsewhere, N18.32 - Chronic kidney disease, stage 3b Medications: Changed From sodium polystyrene sulfonate 30 grams PO .Q weekly 453.6 grams 0RF To sodium polystyrene sulfonate 30 grams PO .twice weekly 453.6 grams 4RF Resumed lisinopril 15 mg (3 x 5 mg) PO DAILY 90 tabs 3RF lisinopril 5 mg PO DAILY Coding Level of Care Code Est Pt Level 4 (42374) Diagnoses Primary hypertension I10 Hypertension type: primary hypertension Hyponatremia E87.1 AL amyloid nephropathy E85.4; N08 Stage 3b chronic kidney disease N18.32 Chronic kidney disease stage 3 subtype: stage 3b (GFR 30-44) Hyperkalemia E87.5
[2025-06-14 15:02] VITALS: BP 140/74; PULSE 70; O2SAT 99; BMI 25.0
--- OUTSIDE RECORDS SUMMARY | 2025-06-14 16:01 | XMS_ITS | Clinical Summary ---
Author Organization [facility] Address [address] [facility] [address] [place] [address] Phone Care Team Providers Care Rn Hemodialysis Charge Name Role Phone Boris Tyson MD Primary Care Provider [phone] Allergies Active Allergy Reactions Criticality Noted Date [...] patient's age to complete this topic [facility] [employer] Commercial Care Teams Rn Hemodialysis Charge Relationship Specialty Start Date End Date Boris Tyson MD [address] [place] [id number] PCP - General Internal Medicine 04/04/22
--- OUTSIDE RECORDS SUMMARY | 2025-06-14 16:01 | XMS_ITS | Encounter Summary ---
Author Organization [facility] Address [address] [facility] [address] [place] [address] Phone Care Team Providers Care Senior Tax Analyst Name Role Phone Boris Tyson MD Primary Care Provider [phone] Nai Niño MD Unavailable [phone] Michelle Huerta Unavailable Anne Marie [email or web address]. U Encounter Details Date Type Department Care Team (Late st Contact Info) Description 10/24/2023 Documentation [facility], Division of Hematologic Oncology, [facility] [place] [address] [facility] 7th [place] [address] Maribel Jerry, RN [address] [facility] [place] [address] Carlos [email or web address] Social History Tobacco Use Types Packs/Day Years [...] 1:30 PM EDT Blood Draw Laboratory Services, [facility] [address] [facility] 2nd [place] [address] Juve Gonzalez MD [id number] [place] [address] [email or web address] 08/23/2025 2:30 PM EDT Office Visit [facility], Division of Hematologic Oncology, [facility] [address] [facility] 7th [place] [address] Juve Gonzalez MD [address] [address] [email or web address] 02/15/2026 10:45 AM EDT Office Visit [facility] [address] [facility] 1st [place] [address] Yu Elias MD [address] [place] [address] [email or web address] documented as of this encounter Visit Diagnoses Not on filedocumented in this encounter Care Teams Senior Tax Analyst Relationship Specialty Start Date End Date Boris Tyson MD 175 [facility] 200 [place] [address] PCP - General Internal Medicine 06/25/23 Nai Niño MD [address] [place] [address] [place] [address] Internal Medicine 08/05/23 Michelle Huerta [address] [place] [address] [place] [address] [email or web address]. [facility] Multicultural Manager 09/09/23 documented as of this encounter Additional Source Comments The information contained in this document represents components of the legal health record. It is not the complete legal health record.[facility]
--- OUTSIDE RECORDS SUMMARY | 2025-06-14 16:02 | XMS_ITS | Clinical Summary ---
Author Organization 175 [facility] Address 175 [place] [address] Phone Care Team Providers Care Hard Rock Miner Blasting Name Role Phone Boris Tyson MD Primary Care Provider [phone] Allergies Active Allergy Reactions Criticality Noted Date [...] AM EDT Office Visit Internal Medicine - [address] [address] Boris Tyson MD Primary hypertension (Primary Dx); Light chain (AL) amyloidosis ([facility] V24, [facility] V28); Seasonal allergic rhinitis due to pollen; [...] HISTORICAL KNEE SURGERY; COMMENT: ACL tear at [facility] Medical History Medical History Date Comments [...] for your loved ones. For example, child day care center worker or elderly care for an older adult? [...] AM EST Office Visit Internal Medicine - [place] [address] [facility] [address] [place] [phone] Boris Tyson MD 175 [facility] [address] [place] [address] Health Maintenance Due Date Last Done Comments [...] Test (02/03/2024) Annual BMP Blood Test Abstracted [facility] Provider HEALTH MAINTENANCE Final Result * External Colonoscopy Report (10/02/2023 9:03 AM EST) Anatomical Region Laterality Modality Endoscopy [facility] Provider GI~PROCEDURE ORDERABLES F inal Result * Lipid panel (08/05/2023) Triglycerides 0 mg/dL Comment:No interpretation, A bstracted Cholesterol 0 mg/dL Comment:No interpretation, A bstracted HDL 0 mg/dL Comment:No interpretation, A bstracted LDL Cholesterol 0 mg/dL Comment:No interpretation, A bstracted Blood Venous blood specimen / Unknown [facility] Provider LAB BLOOD ORDERABLES Olamide l Result from Last 3 Months or Most Recently Relevant to Health Maintenance Insurance [employer] Care Teams Hard Rock Miner Blasting Relationship Specialty Start Date End Date Boris Tyson MD 175 [place] [address] PCP - General Internal Medicine 11/03/18
--- OUTSIDE RECORDS SUMMARY | 2025-06-14 16:02 | XMS_ITS | Clinical Summary ---
Author Organization [facility] Address [address] [place] [address] Care Team Providers Care Pegger Dobby Looms Name Role Phone Boris Tyson MD Primary [...] Group Subscriber ID Effective Dates Phone Address [facility] [id number] 2021-Present [address] [facility] [address] [place] [address] [facility] Care Teams Pegger Dobby Looms Relationship Specialty Start Date End Date Boris Tyson MD PCP - General Internal Medicine 03/18/22
== END 2025-06-14 15:31 | disposition home or self-care (01) ==
LOC: HO.HKAS 14:41
PROVIDERS: PCP Internal Medicine; Visit Provider Internal Medicine Nephrology
DX: I10 Essential (primary) hypertension (principal); E87.1 Hypo-osmolality and hyponatremia; E85.4 Organ-limited amyloidosis; N08 Glomerular disorders in diseases classified elsewhere; N18.32 Chronic kidney disease, stage 3b; E87.5 Hyperkalemia
CPT/HCPCS: 99214

== ENCOUNTER 2025-07-08 11:37 | Outpatient (REF) | payer OTHER, SELFPAY ==
[2025-07-08 18:32] LABS: Anion Gap 12 (12-20); Blood Urea Nitrogen 33 mg/dL (9-16); Carbon Dioxide 22 mmol/L (22-29); Chloride 100 mmol/L (96-108); Estimated Glomerular Filt Rate 37; Potassium 5.5 mmol/L (3.3-5.1); Sodium 128 mmol/L (135-145)
== END 2025-07-08 11:38 | disposition home or self-care (01) ==
LOC: HO.HKASLDS 11:37
PROVIDERS: Visit Provider Internal Medicine Nephrology
DX: I12.9 Hypertensive chronic kidney disease with stage 1 through stage 4 chronic kidney disease, or unspecified chronic kidney disease (principal); N18.32 Chronic kidney disease, stage 3b; E87.1 Hypo-osmolality and hyponatremia; E85.4 Organ-limited amyloidosis; E87.5 Hyperkalemia
CPT/HCPCS: 36415; 80051; 82565; 84520

== ENCOUNTER 2025-08-09 15:58 | Outpatient (REF) | payer OTHER, SELFPAY ==
--- OUTSIDE RECORDS SUMMARY | 2025-08-09 18:30 | XMS_ITS | Encounter Summary ---
Author Organization [facility] Address [address] [facility] [address] [place] [address] Phone Care Team Providers Care Transitional Studies Instructor Name Role Phone Boris Tyson MD Primary Care Provider [phone] Nai Niño MD Unavailable [phone] Michelle Huerta Unavailable Anne Marie [email or web address]. U Encounter Details Date Type Department Care Team (Late st Contact Info) Description 10/22/2023 Documentation [facility], Division of Hematologic Oncology, [facility] [place] [address] [facility], 7th [place] [address] Maribel Jerry, RN 440 [facility] [place] [address] Carlos [email or web address] Social History Tobacco Use Types Packs/Day Years [...] 1:30 PM EDT Blood Draw Laboratory Services, [address] 2nd [place] [address] Juve Gonzalez MD [address] [place] [address] [address] [place] [address] [email or web address] 08/23/2025 2:30 PM EDT Office Visit [facility], Division of Hematologic Oncology, [address], 7[address] [place] [address] Juve Gonzalez MD [address] [place] [address] [email or web address] 02/15/2026 10:45 AM EDT Office Visit [facility] [address] [facility] 1st [place] [address] Yu Elias MD [address] [place] [address], [address] [address] [email or web address] documented as of this encounter Visit Diagnoses Not on filedocumented in this encounter Care Teams Transitional Studies Instructor Relationship Specialty Start Date End Date Boris Tyson MD 175 [facility] [address] [place] [address] PCP - General Internal Medicine 06/25/23 Nai Niño MD [address] [place] [address] [place] [address] [email or web address] Internal Medicine 08/05/23 Michelle Huerta [address] [facility] [place] [address] [email or web address]. [facility] Guide Escort 09/09/23 documented as of this encounter Additional Source Comments The information contained in this document represents components of the legal health record. It is not the complete legal health record.[facility]
--- OUTSIDE RECORDS SUMMARY | 2025-08-09 18:30 | XMS_ITS | Encounter Summary ---
Author Organization [facility] Address [address] [place] [address] Phone Care Team Providers Care Blooming Mill Supervisor Name Role Phone Boris Tyson MD Primary Care Provider [phone] Nai Niño MD Unavailable [phone] Michelle Huerta Unavailable Anne Marie [email or web address]. U Encounter Details Date Type Department Care Team (Late st Contact Info) Description 11/07/2023 Documentation [facility] [address] [address] Nash Whiteside PA-C 35 [place] [address] [email or web address] Social History Tobacco Use Types Packs/Day [...] PM EDT documented as of this encounter Progress Notes * Nash Whiteside PA-C - 11/07/2023 9:55 AM EST Apheresis Collection Suitability Name: Alo Ignacio MRN: ?[id number] Indication: ?auto HPC Tentative Collection Date: ?11/12/23 Date of mobilization: 11/08/23 Has the donor been tested for evidence of communicable infectious diseases in accordance with FDA/AABB guidelines: ?yes ? Relevant Past Medical History: ?Cardiac (Atrial fibrillation or flutter, sick sinus syndrome, or ventricular arrhythmias, CAD/SD, CHF, HTN, heart valve disease, diastolic dysfunction, peripheral edema). HTN on amlodipine Endocrine (NIDDM/IDDM, thyroid disease, Adrenal disorders, ???). HLD Heme (Coagulopathy, Anemia, Hemoglobinopathies, ITP/TTP,???). 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 no Psychiatric disorders (Mood disorders, Substance Abuse/Dependence???). no Pulmonary (Asthma, COPD, Pulmonary Embolism, Interstitial lung disease, Pleural/Mediastinal disorders, Tumor). No Stage 3 CKD ?I, the Transfusion Medicine PA, have deemed the above donor to be medically suitable for autologous HPC collection. The information above was collected from a review of patient records. Nash Whiteside PA-C Transfusion Medicine PA [facility] Transfusion Medicine Pager: [phone] documented in this encounter Plan of Treatment Upcoming Encounters Date Type Department Care Team (Late st Contact Info) Description 08/23/2025 1:30 PM EDT Blood Draw Laboratory Services, [facility] [address] [place] [address], 2nd [place] [address] Juve Gonzalez MD [address] [place] [address] [email or web address] 08/23/2025 2:30 PM EDT Office Visit [facility], Division of Hematologic Oncology, [facility] [address] [facility], 7th [place] [address] Juve Gonzalez MD [address] [place] [address] [address] [place] [address] [email or web address] 02/15/2026 10:45 AM EDT Office Visit [facility] [address] [facility] 1st [place] [address] Yu Elias MD [address] [place] [address], [address] [place] [address] [email or web address] documented as of this encounter Visit Diagnoses Not on filedocumented in this encounter Care Teams Blooming Mill Supervisor Relationship Specialty Start Date End Date Boris Tyson MD [address] [facility] [address] [place] [address] PCP - General Internal Medicine 06/25/23 N[place] [address] [place] [address] Hematology [place] [address] [email or web address] Internal Medicine 08/05/23 Michelle Huerta [address] [facility] Hematology [place] [address] [email or web address] Clinical Psychiatrist 09/09/23 documented as of this encounter Additional Source Comments The information contained in this document represents components of the legal health record. It is not the complete legal health record.[facility]
--- OUTSIDE RECORDS SUMMARY | 2025-08-09 18:30 | XMS_ITS | Clinical Summary ---
Author Organization [facility] Address [address] [place] [address] Care Team Providers Care Crew Boat Operator Name Role Phone Boris Tyson MD [...] Group Subscriber ID Effective Dates Phone Address [facility] [id number] 2021-Present [address] [facility] [address] [place] [address] [facility] Care Teams Crew Boat Operator Relationship Specialty Start Date End Date Boris Tyson MD PCP - General Internal Medicine 03/18/22
--- OUTSIDE RECORDS SUMMARY | 2025-08-09 18:30 | XMS_ITS | Encounter Summary ---
Author Organization [facility] Address [address] [facility] [address] [place] [address] Phone Care Team Providers Care Traveling Plant Operator Name Role Phone Boris Tyson MD Primary Care Provider [phone] Nai Niño MD Unavailable [phone] Michelle Huerta Unavailable Anne Marie [email or web address]. U Encounter Details Date Type Department Care Team (Late st Contact Info) Description 10/24/2023 Documentation [facility], Division of Hematologic Oncology, [facility] [place] [address] [facility], 7th [place] [address] Maribel Jerry, RN [address] [facility] [place] [address] Carlos [email or web address] Social History Tobacco Use [...] as of this encounter Progress Notes * Juve Gonzalez MD - 10/24/2023 1:18 PM EST Subject Line: Provider Attestation I have reviewed the notes, assessments, and/or procedures performed by Maribel Jerry RN, I concur with her/his documentation of [place]o [place]. Juve Gonzalez MD Runner Worker, [employer] Paper Handler, [facility] Amyloidosis Real Estate Underwriter Physician, Division of Hematology [facility] Pager: [phone] Clinic (ext 3) Clinic documented in this encounter Plan of Treatment Upcoming Encounters Date Type Department Care Team (Late st Contact Info) Description 08/23/2025 1:30 PM EDT Blood Draw Laboratory Services, [address], 2nd [place] [address] Juve Gonzalez MD [address] [place] [address] [email or web address] 08/23/2025 2:30 PM EDT Office Visit [facility], Division of Hematologic Oncology, [address], 7th [place] [address] Juve Gonzalez MD [address] [place] [address] [email or web address] 02/15/2026 10:45 AM EDT Office Visit [facility] [address] [facility] 1st [place] [address] Yu Elisa MD [address] [place] [address], [address] [place] [address] Maryam@[facility] documented as of this encounter Visit Diagnoses Not on filedocumented in this encounter Care Teams Traveling Plant Operator Relationship Specialty Start Date End Date Boris Tyson MD [address] [facility] [address] [place] [address] PCP - General Internal Medicine 06/25/23 Nai Niño MD [address] [facility] [place] [address] [email or web address] Internal Medicine 08/05/23 Michelle Huerta [address] [facility] [place] [address] Phill@[email or web address]. [place].[facility] Respiratory Equipment Assistant 09/09/23 documented as of this encounter Additional Source Comments The information contained in this document represents components of the legal health record. It is not the complete legal health record.[facility]
--- OUTSIDE RECORDS SUMMARY | 2025-08-09 18:30 | XMS_ITS | Encounter Summary ---
Author Organization [facility] Address [address] [facility] [address] [place] [address] Phone Care Team Providers Care Associate Loan Officer Name Role Phone Boris Tyson MD Primary Care Provider [phone] Nai Niño MD Unavailable Michelle Huerta Unavailable Anne Marie Sigala@[email or web address].[email or web address]. U Encounter Details Date Type Department Care Team (Late st Contact Info) Description 10/24/2023 Documentation [facility], Division of Hematologic Oncology, [facility] [place] [address] [facility], 7th [place] [address] Maribel Jerry, RN [address] [facility] [place] [address] Carlos Alberto@[email or web address] Social History Tobacco Use Types Packs/Day [...] as of this encounter Progress Notes * Lillian Jin PA-C - 10/24/2023 1:14 PM EST Images from the original note were not included. AUTOLOGOUS MALE DONOR EVALUATION NOTE Planned date of mobilization: 11/08/2023 (Note: Transplant evaluating clinician must sign this form prior to mobilization date) Will any of the FDA/AABB required infectious disease be outdated (greater than 30 days) at the timeof collection or not performed prior to collection?: No (Note: The Collect Facility must be notified in writing if the response to this question changes prior to donation collection.) Is the donor , , , [place] Black, South or Central [place] Black, or Other Black? OR is the donor from the Mediterranean [place], [place], or Southeast [place]?: Yes.Please explain: Does the donor have a personal or family history of any hemoglobinopathies? (Examples include sickle cell disease or Thalassemia): Yes. Please explain: Beta Thalassemia If Yes or Unsure to either of the two questions above, an appropriate hemoglobinopathy test is required. Will a hemoglobinopathy test be ordered and resulted prior to mobilization?: Yes. Test(s):Sickle Cell, test date(s): 10/22/23, and result(s) if known: neagative Does the donor use recreational drugs?: No Does the donor use alcohol?: Yes. Describe alcohol use and number of drinks/week: 1 Does the donor use tobacco?: No Does the donor have a history of any cardiac issues?: No Does the donor have a history of diabetes?: No Does the donor have a history of migraine headaches?: No Medical Clearance Statement I, the transplant evaluating clinician, have reviewed all donor data, including the medical history, physical exam, relevant medical records and laboratory test results, and have deemed this donor janessa medically suitable for the following events (select all that apply): Mobilization and apheresis Any abnormal findings not mentioned above that would contribute to added safety concerns pertainingto line placement, mobilization, and/or collection will be or has been communicated to the appropriate collection facility and shall be noted here: None The information gathered about this patient's medical history was obtained by the [facility]. I verified the information above through a chart review of [facility] records from the hematology/oncology team. Lillian Jin MS, [employer] Physician Specialty Finishing Utility Person Hematologic Malignancies and Stem Cell Transplant (t) [phone], pager#[phone] [email or web address] documented in this encounter Plan of Treatment Upcoming Encounters Date Type Department Care Team (Late st Contact Info) Description 08/23/2025 1:30 PM EDT Blood Draw Laboratory Services, [address], 2nd [place] [address] Juve Gonzalez MD [address] [place] [phone] ARELY@[facility] 08/23/2025 2:30 PM EDT Office Visit [facility], Division of Hematologic Oncology, [address], 7th [place] [address] Juve Gonzalez MD [address] [place] [address] ARELY@[facility] 02/15/2026 10:45 AM EDT Office Visit [address] 1st [place] [address] Yu Elias MD [address] [place] [address], [address] [place] [address] Maryam@[facility] documented as of this encounter Visit Diagnoses Diagnosis Autologous donor of stem cells- Primary documented in this encounter Care Teams Associate Loan Officer Relationship Specialty Start Date End Date Boris Tyson MD [address] [place] [address] PCP - General Internal Medicine 06/25/23 Nai Niño MD [address] [facility] [place] [address] [email or web address] Internal Medicine 08/05/23 Michelle Huerta [address] [facility] [place] [address] [email or web address]@[email or web address]. [facility] Frame Coverer 09/09/23 documented as of this encounter Additional Source Comments The information contained in this document represents components of the legal health record. It is not the complete legal health record.[facility]
--- OUTSIDE RECORDS SUMMARY | 2025-08-09 18:30 | XMS_ITS | Encounter Summary ---
Author Organization [facility] Address [address] [facility] [address] [place] [address] Phone Care Team Providers Care Communications Station Manager Name Role Phone Boris Tyson MD Primary Care Provider [phone] Nai Niño MD Unavailable [phone] Michelle Huerta Unavailable Anne Marie [email or web address] U Encounter Details Date Type Department Care Team (Late st Contact Info) Description 09/02/2023 Documentation Central Registration, [facility] [place] [address] [facility], 2nd [place] [address] Astrid Mirza [address] [place], [place] [id number] [email or web address] Social History Tobacco Use Types Packs/Day Years [...] 1:30 PM EDT Blood Draw Laboratory Services, [address], 2nd [place] [address] Juve Gonzalez MD [address] [place] [address] 223 [place] [address] ARELY@[facility] 08/23/2025 2:30 PM EDT Office Visit [facility], Division of Hematologic Oncology, [address], 7th [place] [address] Juve Gonzalez MD [address] [place] [phone] ARELY@[facility] 02/15/2026 10:45 AM EDT Office Visit [facility] [address] [facility] 1st [place] [address] Yu Elias MD [address] [place] [address], [address] [address] Maryam@[facility] documented as of this encounter Visit Diagnoses Not on filedocumented in this encounter Care Teams Communications Station Manager Relationship Specialty Start Date End Date Boris Tyson MD 175 [facility] [address] [place] [address] PCP - General Internal Medicine 06/25/23 Nai Niño MD [address] [place] [address] [place] [address] [email or web address] Internal Medicine 08/05/23 Michelle Huerta [address] [facility] [place] [address] [email or web address] Balloon Sander 09/09/23 documented as of this encounter Additional Source Comments The information contained in this document represents components of the legal health record. It is not the complete legal health record.[facility]
--- OUTSIDE RECORDS SUMMARY | 2025-08-09 18:30 | XMS_ITS | Encounter Summary ---
Author Organization [facility] Address [address] [facility] [address] [place] [address] Phone Care Team Providers Care Instrument Installer Name Role Phone Pcp, Not Required Primary Care Provider Boris Lomax MD Primary Care Provider [phone] Nai Niño MD Unavailable [phone] Michelle Huerta Unavailable Anne Marie Sigala@[facility].[email or web address].ED U Encounter Details Date Type Department Care Team ([facility] st Contact Info) Description 05/29/2021 Ophth Exam [facility] Emergency Department [address] [place] [address] Kyaw Green MD [address] [place] [address] [email or web address] Social History Tobacco Use Types Packs/Day Years Used Date Smoking Tobacco: Never Smokeless Tobacco: Never Alcohol Use Standard Drinks/Week Comments Yes 1 (1 standard drink = 0.6 oz pur e alcohol) occas Sex and Gender Information Value Date Recorded Sex Assigned at Male 05/15/2021 12:03 PM EDT Legal Sex Male 12:00 PM EDT Gender Identity Male 05/15/2021 12:03 PM EDT Sexual Orientation Straight 05/15/2021 12 :03 PM EDT documented as of this encounter Functional Status * Calculated C-SSRS Risk Score (Lifetime/Recent) Answer Date of Assessment Author No Risk Indicated 05/29/2021 12:31 PM EDT Jackelyn Stevens, RN * Calder Suicide Severity Rating Scale (Screener/Recent Self-Report) Question Answer Date of Assessment Author 1. Wish to be (Past 1 Month) No 021 12:31 PM EDT Jackelyn Wilkerson, RN 2. Non-Specific Active Suici chas Thoughts (Past 1 Month) No 05/29/2021 12:31 PM EDT Naa Wilkerson, RN 6. Suicidal Behavior (Lifetime) No 12:31 PM EDT Jackelyn Wilkerson, RN documented as of this encounter Plan of Treatment Upcoming Encounters Date Type Department Care Team (Late st Contact Info) Description 08/23/2025 1:30 PM EDT Blood Draw Laboratory Services, [address], 2nd [place] [address] uJve Gonzalez MD [address] [place] [phone] ARELY@[facility] 08/23/2025 2:30 PM EDT Office Visit [facility], Division of Hematologic Oncology, [address], 7th [place] [address] Juve Gonzalez MD [address] [place] [address] ARELY@[facility] 02/15/2026 10:45 AM EDT Office Visit [address] 1st [place] [address] Yu Elias MD [address] [place] [address], [address] [address] Maryam@[facility] documented as of this encounter Visit Diagnoses Not on filedocumented in this encounter Care Teams Instrument Installer Relationship Specialty Start Date End Date Pcp, Not Required [address] [place] [address] PCP - General 05/29/21 06/24/23 Boris Tyson MD [address] [place] [address] PCP - General Internal Medicine 06/25/23 Nai Niño MD [facility] [place] [address] [email or web address] Internal Medicine 08/05/23 Michelle Huerta [facility] [place] [address] Phill@[facility]. [facility] Tooth Grinder 09/09/23 documented as of this encounter Additional Source Comments The information contained in this document represents components of the legal health record. It is not the complete legal health record.[facility]
--- OUTSIDE RECORDS SUMMARY | 2025-08-09 18:30 | XMS_ITS | Encounter Summary ---
Author Organization [facility] Address [address] [place] [address] [place] [address] Phone Care Team Providers Care Shale Miner Name Role Phone Boris Tyson MD Primary Care Provider Nai Niño MD Unavailable [phone] Michelle Huerta Unavailable Anne Marie [email or web address] U Encounter Details Date Type Department Care Team (Late Contact Info) Description 09/03/2023 Procedure Pass [facility] Echocardiography [address] [place] [address] Social History Tobacco Use Types Packs/Day Years [...] 1:30 PM EDT Blood Draw Laboratory Services, [facility] [address] [facility], 2nd [place] [address] Juve Gonzalez MD [address] [place] [address] 223 [place] [address] [email or web address] 08/23/2025 2:30 PM EDT Office Visit [facility], Division of Hematologic Oncology, [address], 7th [place] [address] Juve Gonzalez MD [address] [place] [address] 223 [place] [address] ARELY@[facility] 02/15/2026 10:45 AM EDT Office Visit [address] 1st [place] [address] Yu Elias MD [address] [place] [address], [address] [place] [address] Maryam@[facility] documented as of this encounter Visit Diagnoses Not on filedocumented in this encounter Care Teams Shale Miner Relationship Specialty Start Date End Date Boris Tyson MD [address] [place] [address] [address] [place] [address] PCP - General Internal Medicine 06/25/23 Nai Niño MD [address] [place] [address] [place] [address] [email or web address] Internal Medicine 08/05/23 Michelle Huerta [address] [place] [address] [place] [address] Phill@[email or web address]. [email or web address].[facility] Primary Care Nurse Practitioner 09/09/23 documented as of this encounter Additional Source Comments The information contained in this document represents components of the legal health record. It is not the complete legal health record.[facility]
--- OUTSIDE RECORDS SUMMARY | 2025-08-09 18:30 | XMS_ITS | Encounter Summary ---
Author Organization [facility] Address [address] [facility] [address] [place] [address] Phone Care Team Providers Care Printing Roller Polisher Name Role Phone Boris Tyson MD Primary Care Provider Nai iNño MD Unavailable [phone] Michelle Huerta Unavailable Anne Marie Sigala@[email or web address]. U Encounter Details Date Type Department Care Team (Late st Contact Info) Description 10/24/2023 Documentation [facility], Division of Hematologic Oncology, [facility] [place] [address] [facility], 7th [place] [address] Maribel Jerry, RN [address] [facility] [address] Carlos Alberto@[email or web address] Social History Tobacco Use Types Packs/Day [...] 1:30 PM EDT Blood Draw Laboratory Services, [address], 2nd [place] [address] Juve Gonzalez MD [address] [place] [address] 223 [place] [address] ARELY@[facility] 08/23/2025 2:30 PM EDT Office Visit [facility], Division of Hematologic Oncology, [address], 7th [place] [address] Juve Gonzalez MD [address] [place] [address] ARELY@[facility] 02/15/2026 10:45 AM EDT Office Visit [facility] [address] [facility] 1st [place] [address] Yu Elias MD [address] [place] [address], [address] [address] Maryam@[email or web address] documented as of this encounter Visit Diagnoses Not on filedocumented in this encounter Care Teams Printing Roller Polisher Relationship Specialty Start Date End Date Boris Tyson MD 175 [facility] [address] [place] [address] PCP - General Internal Medicine 06/25/23 Nai Niño MD [address] [place] [address] [place] [address] [email or web address] Internal Medicine 08/05/23 Michelle Huerta [address] [facility] [place] [address] Phill@[email or web address]. [facility] Field Sales Executive 09/09/23 documented as of this encounter Additional Source Comments The information contained in this document represents components of the legal health record. It is not the complete legal health record.[facility]
--- OUTSIDE RECORDS SUMMARY | 2025-08-09 18:30 | XMS_ITS | Clinical Summary ---
Author Organization [facility] Address [address] [place] [phone] Phone Care Team Providers Care Ship Runner Name Role Phone Boris Tyson MD Primary Care Provider [phone] Nai Niño MD Unavailable [phone] Michelle Huerta Unavailable Anne Marie [email or web address]. U Allergies Active Allergy Reactions Criticality Noted Date Comments Animal Dander 05/29/2021 Grass Pollen 05/29/2021 Medications bepotastine besilate (BEPREVE) 1.5 % Drop Place 1 drop into each eye 2 (two) times a day. Active levocetirizine (XYZAL) 5 MG tablet Take 5 mg by mouth every morning. Active cromolyn (OPTICROM) 4 % ophthalmic solutionIndications :Allergic conjunctivitis of both eyes INSTILL 1 DROP INTO BOTH EYES 4 TIMES A DAY 10 mL 12 3 Active acyclovir (ZOVIRAX) 400 MG tablet Take 400 mg by mouth 2 (two) times a day. 3 Active cetirizine (ZYRTEC) 10 MG tablet TAKE 1 TABLET BY MOUTH EVERY EVENING FOR 360 DAYS. 3 Active omeprazole (PRILOSEC) 20 MG capsule Take 1 capsule by mouth 2 (two) times a day. 3 Active traMADoL 100 mg Tab Take 100 mg by mouth every evening. 3 Active cholecalciferol (VITAMIN D3) 25 MCG (1,000 unit) tablet Take 1,000 Units by mouth daily. Active lisinopril (PRINIVIL,ZESTRIL) 10 MG tablet Take 10 mg by mouth daily. 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 He presented with very modest elevation in L FLC with a ratio slightly below 1 in the setting of renal dysfunction. He had a 1.2 g/dL M spike, IgGL at diagnosis. Received DaraCyBorDx5, complicated by failure to thrive, muscular hypothrophy and hyponatremia. He has biopsy-proven involvement of vasculature on a muscle biopsy. This is c/w buttocks claudication. 1. ONC: continue on andromeda plan to complete 24 months of therapy. Currently C19. Response c/w CR. I have recommended to pursue a BM biopsy yearly. Has successfully collected stem cells. ? 2. Heme: counts are satisfactory for treatment. No need for blood product support. 3. CVS: Denies signs/symptoms of blood clot. No evidence of CV side effects. We discussed venous clotting risk and ways to mitigate that as he travels. Pros and cons of anticoagulation discussed at length and patient declines. ? 4. FEN: Weight is stable and oral intake adequate. Continue multivitamin. ? 5. Renal: Renal function is stable. Renally dose meds. Avoid nephrotoxins. Would recommend UPEP at least every 6 months to assess renal response. Will check one here for next f/u. Last in Sep 2023 had less than 150 mg protein/24 hours consistent with excellent renal response assuming proteinuria of ~3 g at diagnosis. According to the Palladini renal score: Risk Factors (Proteinuria >5 g/24 h eGFR <50 ml/min/1.73 m) Stage 1 (0 risk factors) --> Probability of ESRD progression at 3 years: 4% Stage 2 (1 risk factor) --> Probability of ESRD progression at 3 years: 30% Stage 3 (2 risk factors) --> Probability of ESRD progression at 3 years: 85% Patient has overall a risk of progression to ESRD of 30% in the upcoming 3 years. A rapid and deep hematologic response is the most critical variable in determining outcome. We noted that patient is not on an ARB or ACEi. This is recommended whenever possible to limit glomerular damage elicit by proteinuria. Unless there are contraindications, we would recommend to prescribe this. ? 6. ID: Acyclovir for HSV prophylaxis. 7. GI: on PPI for PUD prophylaxis. 8. Tegumentary: no issues ? 9.Bone: No indication for bone protective therapy ? 10. Neuro: no PN per se. 11. Pain: chronic leg pain from claudication on tramadol PRN ? 12. Psychosocial: patient is adequately concerned about his prognosis and condition.No evidence of depression or anxiety. Overall coping well. ? 13. Access:peripheral. 14. Endo: no issues 15. MSK: discussed at length PT and exercise program to counteract muscular atrophy. 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 He presented with very modest elevation in L FLC with a ratio slightly below 1 in the setting of renal dysfunction. He had a 1.2 g/dL M spike, IgGL at diagnosis. Received DaraCyBorDx5, complicated by failure to thrive, muscular hypothrophy and hyponatremia. He has biopsy-proven involvement of vasculature on a muscle biopsy. This is c/w buttocks claudication. 1. ONC: continue on andromeda plan to complete 24 months of therapy. Currently C13. Will perform BM with MRD to assess disease status. Has successfully collected stem cells. ? 2. Heme: counts are satisfactory for treatment. No need for blood product support. 3. CVS: Denies signs/symptoms of blood clot. No evidence of CV side effects. ? 4. FEN: Weight is stable and oral intake adequate. Continue multivitamin. ? 5. Renal: Renal function is stable. Renally dose meds. Avoid nephrotoxins. Would recommend UPEP at least every 6 months to assess renal response. Will check one here for next f/u. Last in Sep 2023 had less than 150 mg protein/24 hours consistent with excellent renal response assuming proteinuria of ~3 g at diagnosis. According to the Palladini renal score: Risk Factors (Proteinuria >5 g/24 h eGFR <50 ml/min/1.73 m) Stage 1 (0 risk factors) --> Probability of ESRD progression at 3 years: 4% Stage 2 (1 risk factor) --> Probability of ESRD progression at 3 years: 30% Stage 3 (2 risk factors) --> Probability of ESRD progression at 3 years: 85% Patient has overall a risk of progression to ESRD of 30% in the upcoming 3 years. A rapid and deep hematologic response is the most critical variable in determining outcome. We noted that patient is not on an ARB or ACEi. This is recommended whenever possible to limit glomerular damage elicit by proteinuria. Unless there are contraindications, we would recommend to prescribe this. ? 6. ID: Acyclovir for HSV prophylaxis. 7. GI: on PPI for PUD prophylaxis. 8. Tegumentary: no issues ? 9.Bone: No indication for bone protective therapy ? 10. Neuro: no PN per se. 11. Pain: chronic leg pain from claudication on tramadol PRN ? 12. Psychosocial: patient is adequately concerned about his prognosis and condition.No evidence of depression or anxiety. Overall coping well. ? 13. Access:peripheral. 14. Endo: no issues 15. MSK: discussed at length PT and exercise program to counteract muscular atrophy. 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 He presented with very modest elevation in L FLC with a ratio slightly below 1 in the setting of renal dysfunction. He had a 1.2 g/dL M spike, IgGL at diagnosis. Received DaraCyBorDx5, complicated by failure to thrive, muscular hypothrophy and hyponatremia. He has biopsy-proven involvement of vasculature on a muscle biopsy. This is c/w buttocks claudication. He is here to consent for stem cell collection. There appears to be no indication to proceed to ASCT at this point, granted that he is in a confirmed deep response on restaging BM studies. His K/L ratio is again today over 2 and physiologic based on the degree of renal dysfunction. Creatinine is a bit improved, but considering degree of muscular hypotrophy, I added a cystatin C. I discussed that the results of muscular biopsy are c/w his symptoms of muscle claudication and diffuse vascular involvement. They will improve over time as amyloid gets reabsorbed. I have recommended that we continue his treatment according to Andromeda for a total duration of 2 years. I would recommend to d/c all steroids due to myopathy. Chances of reaction at this point are very small. If not, dex 4 should be dosed Q28D. According to the Palladini renal score: Risk Factors (Proteinuria >5 g/24 h eGFR <50 ml/min/1.73 m) Stage 1 (0 risk factors) --> Probability of ESRD progression at 3 years: 4% Stage 2 (1 risk factor) --> Probability of ESRD progression at 3 years: 30% Stage 3 (2 risk factors) --> Probability of ESRD progression at 3 years: 85% Patient has overall a risk of progression to ESRD of 30% in the upcoming 3 years. A rapid and deep hematologic response is the most critical variable in determining outcome. We noted that patient is not on an ARB or ACEi. This is recommended whenever possible to limit glomerular damage elicit by proteinuria. Unless there are contraindications, we would recommend to prescribe this. We reviewed again data supporting ASCT in AL amyloidosis, which are largely retrospective review and/or single institution studies. A survival advantage has been demonstrated for patients undergoing ASCT in first remission, versus standard therapy. Patient has decided to pursue harvest and store for potential PBSCT in second remission and we will plan to mobilize with neupogen+plerixafor, followed by harvesting and storage and resumption of induction chemotherapy followed by maintenance. Potential for transplant related morbidity and mortality was discussed, quoting a 1-2% TRM. Potential for small increased incidence for second primary malignancies, including myeloid neoplasia also discussed. Goal is to achieve a CR (L<4 mg/dL) at D+100 post ASCT. Together with cardiac involvement, achievement of CR is the major prognostic factor in AL amyloidosis and Patient does not appear to have any based on markers and TTE. Mobilization will be performed locally. Harvesting will take place at the [facility] donor center. We are checking if cristi this week needs to be held. He can resume treatment 1 week post collection if labs are in order and patient is feeling well. 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 He presented with very modest elevation in L FLC with a ratio slightly below 1 in the setting of renal dysfunction. He had a 1.2 g/dL M spike, IgGL at diagnosis. Of note, we have not received the pathology report and biopsy material has not been received either for review. We will need to f/u on this material and confirm the pathological diagnosis as part of this consultation. He received DaraCyBorDx5, complicated by failure to thrive, muscular hypothrophy and hyponatremia. 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 He has been struggling with performance status, nutrition and muscular deconditioning. 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 I have recommended that he engages in PT and start working on building his muscular mass back. This is a common phenomenon in patients treated with chemo for AL amyloidosis and he is expected to recover with dose reduction/hold of steroids and PT. We have discussed strategies to maintain proper nutrition. His lack of taste and early satiety are most likely related to amyloidosis rather than chemo and are notoriously slow to recover. I have recommended small frequent meals with palatable food and close liaison with nutrition. Fortunately there is no serious dysmotility and patient denies emesis or significant nausea. As far as his treatment, I would recommend that he is moved ahead with cristi single agent Q28D. He would benefit from consolidating his remission to a CR. We have had good track record of holding dex during the consolidation phase of Andromeda and if possible I would recommend to d/c all steroids due to myopathy. Chances of reaction at this point are very small. If not, dex 4 should be dosed Q28D. Unfortunately, he appears to have suffered renal progression with a eGFR based on cystatin C of 25 compared to 44 at diagnosis. Fortunately proteinuria appears to be downgoing and there is a chance that he will recover some of the lost renal function in the upcoming months. According to the Palladini renal score: Risk Factors (Proteinuria >5 g/24 h eGFR <50 ml/min/1.73 m) Stage 1 (0 risk factors) --> Probability of ESRD progression at 3 years: 4% Stage 2 (1 risk factor) --> Probability of ESRD progression at 3 years: 30% Stage 3 (2 risk factors) --> Probability of ESRD progression at 3 years: 85% Patient has overall a risk of progression to ESRD of 30% in the upcoming 3 years. A rapid and deep hematologic response is the most critical variable in determining outcome. We noted that patient is not on an ARB or ACEi. This is recommended whenever possible to limit glomerular damage elicit by proteinuria. Unless there are contraindications, we would recommend to prescribe this. I have also discussed the possibility of collecting stem cells with the intent of deferring transplant unless patient can not achieve CR with cristi single agent in the ensuing months. This is pending recovery of functional status. We will be targeting September-October to take advantage of school break, per patient's preference. Beta-thalassemia 08/13/2023 Stage 3 chronic kidney disease 06/07/2022 1 Social History Tobacco Use Types Packs/Day Years Used Date Smoking Tobacco: Never Smokeless Tobacco: Never Tobacco Cessation:Counseling Given: Not Answered Alcohol Use Standard Drinks/Week Comments Yes 1 [...] Orientation Straight 05/15/2021 12 :03 PM EDT Last Filed Vital Signs Vital Sign Reading Time Taken Comments Blood Pressure 149/70 02/22/2025 2:22 PM EDT Pulse 77 02/22/2025 2:22 PM EDT Temperature 36.6 C (97.9 F) 02/22/2025 2:21 PM EDT Respiratory Rate 18 02/22/2025 2:22 PM EDT Oxygen Saturation 100% 02/22/2025 2:21 PM EDT Inhaled Oxygen Concentration - - Weight 85.4 kg (188 lb 4.4 oz) 02/22/2025 2:22 P M EDT Height 175.8 cm (5' 9.21 ) 02/22/2025 2:22 PM ED T Body Mass Index 27.63 02/22/2025 2:22 PM EDT Plan of Treatment Upcoming Encounters Date Type Department Care Team (Late st Contact Info) Description 08/23/2025 1:30 PM EDT Blood Draw Laboratory Services, [address] [place] [address] Juve Gonzalez MD [address] [place] [phone] [email or web address] 08/23/2025 2:30 PM EDT Office Visit [facility] for Multiple Myeloma, Division of Hematologic Oncology, [address] [place] [address] Juve Gonzalez MD [address] [place] [id number] [email or web address] 02/15/2026 10:45 AM EDT Office Visit [address] 1[address] [place] [address] Yu Elias MD [address] [place] [address], [address] [place] [id number] [email or web address] Health Maintenance Due Date Last Done Comments Adult Td,Tdap Booster 1958 DEPRESSION SCREENING 1970 HEPATITIS C SCREENING 1976 COLOGUARD 2003 COLONOSCOPY 2003 COLORECTAL CANCER SCREENING 2003 FIT TEST 2003 FOBT 2003 SIGMOIDOSCOPY 2003 VIRTUAL COLONOSCOPY 2003 INFLUENZA VACCINE (#1) 2025 , 09/29/2023, 07/05/2022, Additional history exists COVID-19 VACCINE ( season) 2025 07/10/2024, 03/20/2024, 03/20/2024, Additional history exists CREATININE LEVEL 02/22/2026 02/22/2025, , 08/17/2024, Additional history exists POTASSIUM LEVEL 02/22/2026 02/22/2025, 07/28, 02/03/2024, Additional history exists SCREENING FOR DIABETES 02/23/2028 02/22/2025 LIPID PANEL 08/05/2028 08/05/2023, 08/05/2023 PNEUMOCOCCAL VACCINES (50+ years) Completed 04/04/2023, 02/07/2023 ZOSTER VACCINES Completed 09/16/2023, 02/06/2023 RSV VACCINE Completed 10/24/2023 SMOKING STATUS SCREENING (Once After 26 Yrs) Completed 01/19/2025 HEPATITIS A VACCINES Aged Out No long er eligible based on patient's age to complete this topic HIB VACCINES Aged Out No longer eligi ble based on patient's age to complete this topic MENINGOCOCCAL VACCINES (ACWY) Aged Out No longer eligible based on patient's age to complete this topic MENINGOCOCCAL VACCINES (B) Aged Out N o longer eligible based on patient's age to complete this topic Medical Devices Not on file Procedures Procedure Name Priority Date/Time Associated Diagnosis Comments COMPREHENSIVE METABOLIC PANEL Routine 02/22/2025 1:08 PM EDT Light chain (AL) amyloidosis LIPID PANEL Routine 08/05/2023 1:05 PM EDT Light chain (AL) amyloidosis from Last 3 Months or Most Recently Relevant to Health Maintenance Results * (ABNORMAL) Comprehensive metabolic panel (02/22/2025 1:08 PM EDT) SODIUM 126(L) 136 - 145 mmol/L [facility] LIC# [id number] POTASSIUM 5.7(H) 3.4 - 5.1 mmol/L [facility] LIC# [id number] CHLORIDE 95(L) 98 - 107 mmol/L [facility] LIC# [id number] CO2 23 22 - 31 mmol/L [facility] LIC# [id number] BUN 29(H) 6 - 23 mg/dL [facility] LIC# [id number] CREATININE 1.76(H) 0.50 - 1.20 mg/dL [facility] LIC# [id number] GLUCOSE 112(H) 70 - 100 mg/dL [facility] LIC# [id number] ALBUMIN 4.1 3.5 - 5.2 g/dL [facility] LIC# [id number] TOTAL PROTEIN 6.1(L) 6.4 - 8.3 g/dL [facility] LIC# [id number] CALCIUM 9.0 8.8 - 10.7 mg/dL [facility] LIC# [id number] ALKALINE PHOSPHATASE 66 40 - 129 U/L [facility] LIC# [id number] TOTAL BILIRUBIN 0.5 0.2 - 1.2 mg/dL [facility] LIC# [id number] AST 17 <41 U/L [facility] LIC# [id number] ALT 11 <42 U/L [facility] LIC# [id number] GLOBULIN 2.0(L) 2.3 - 4.2 g/dL [facility] LIC# [id number] EGFR 42(L) >59 mL/min/1.7 3m2 [facility] LIC# [id number] Comment:Estimated glomerular filtration rate calculated using the CKD-EPI refit equation. ANION GAP 8 7 - 17 mmol/L [facility] LIC# [id number] Blood 02/22/2025 1:08 PM EDT 02/22/2025 1:14 PM EDT us Juve Gonzalez MD LAB BLOOD ORDERABLES Final Resu lt [facility] LIC# [id number] [address] [place], [place] [id number] * (ABNORMAL) Lipid panel (08/05/2023 1:05 PM EDT) CHOLESTEROL 222(H) <200 mg/dL [facility] LIC# [id number] TRIGLYCERIDES 89 35 - 150 mg/dL [facility] LIC# [id number] HDL 57 40 - 80 mg/dL [facility] LIC# [id number] CALCULATED LDL 147(H) 50 - 129 mg/dL [facility] LIC# [id number] VLDL 18 <31 mg/dL [facility] LIC# [id number] CARDIAC RISK RATIO 3.9 0.0 - 5.0 D [facility] LIC# [id number] Blood 08/05/2023 1:05 PM EDT 08/05/2023 1:19 PM EDT Juve Gonzalez MD LAB BLOOD ORDERABLES Final Resu lt [facility] LIC# [id number] [address] [place] [id number] from Last 3 Months or Most Recently Relevant to Health Maintenance Insurance [employer] [place] [address] [place] [address] POS EPO POS EPO POS EPO [facility] POS EPO [facility] POS EPO Care Teams Ship Runner Relationship Specialty Start Date End Date Boris Tyson MD [address] [facility] [address] [place] [address] PCP - General Internal Medicine 06/25/23 Nai Niño MD [address] [facility] [place] [address] [email or web address] 08/05/23 Michelle Huerta [address] [facility] [place] [address] [email or web address] Telephonic Nurse Case Manager 09/09/23 Additional Source Comments The information contained in this document represents components of the legal health record. It is not the complete legal health record.[facility]
[2025-08-09 18:32] LABS: Anion Gap 13 (12-20); Blood Urea Nitrogen 32 mg/dL (9-16); Carbon Dioxide 24 mmol/L (22-29); Chloride 100 mmol/L (96-108); Estimated Glomerular Filt Rate 44; Potassium 4.8 mmol/L (3.3-5.1); Sodium 132 mmol/L (135-145)
== END 2025-08-09 15:59 | disposition home or self-care (01) ==
LOC: HO.HKASLDS 15:58
PROVIDERS: PCP Internal Medicine; Visit Provider Internal Medicine Nephrology
DX: I12.9 Hypertensive chronic kidney disease with stage 1 through stage 4 chronic kidney disease, or unspecified chronic kidney disease (principal); N18.32 Chronic kidney disease, stage 3b; E87.1 Hypo-osmolality and hyponatremia; E85.4 Organ-limited amyloidosis; E87.5 Hyperkalemia
CPT/HCPCS: 36415; 80051; 82565; 84520

== ENCOUNTER 2025-08-11 15:48 | Outpatient (AMB) | payer OTHER, SELFPAY ==
--- NOTE | 2025-08-11 15:57 | HO.NEPHOV_ITS ---
Vital Signs 08/11/25 16:05 Height 6 ft Weight 185 lb 8 oz BMI 25.2 BP 150/80 H Blood Pressure Location Lt brachial Position Sitting Pulse 63 Pulse Source Pulse Oximeter Pulse Oximetry (%) 99 Oxygen Delivery Method Room Air Intake Visit Reasons: 3mnth w lab Wax Pattern Coater Required: No Accompanied by: Self / Same As Patient Allergies bacitracin Allergy (Verified 08/11/25 16:04) Unknown olopatadine Allergy (Verified 08/11/25 16:04) Unknown potassium dichromate Allergy (Uncoded 04/05/24 14:55) Unknown HPI Comments Details: Alo was seen in follow up for his kidney involvement with AL amyloidosis. He had seen oncologist in [facility] as well as in [facility] and [facility] in [place]. He has been getting daratumumab. He has had various investigations including cardiac MRI which was suggestive of early amyloidosis but with preserved biventricular function by echo and cardiac MRI. He was evaluated for stem cell transplant but has been put on hold for now. He has noted a decrease in exercise capacity through the course of his treatment with chemotherapy. He has been on lisinopril started by his gis developer. He had no regional wall motion abnormalities. His left ventricular ejection fraction was 60-65%. His left ventricular systolic function and right ventricular systolic function was normal. His left atrium was mildly dilated. There was mild dilation of the ascending aorta measuring 39 mm in the tubular section which may be normal for patient's height. He underwent a renal biopsy which showed renal amyloidosis, AL type, lambda phenotype. Diffuse amyloid deposits in glomeruli and renal arteries/ arterioles and focally in interstitium. Global glomerulosclerosis was present in 15% of total glomeruli. He had mild to moderate interstitial fibrosis and tubular atrophy. Electron microscopy showed normal based membrane. There was global effacement of foot process. Endothelial fenestration were preserved. Mesangial matrix was expanded by mildly electron dense material showing randomly arranged fibrillary substructure. Multiple measurements of the fibril widths average to 7.5 nanometer was consistent with amyloid. He had nephrotic range proteinuria. He did not have any neuropathy. He was treated with Luanne CyBord per Andromeda study. His Cytoxan dose was reduced by 20% for fatigue and anemia. His Velcade was held for question of neuropathy/ myopathy. His stem cell collection was done at [facility]( Dr Gonzalez). He had proximal myopathy and underwent skeletal muscle biopsy which showed amyloid. He had been having anemia and receives Retacrit on a regular basis. He is feeling better compared to 6 months ago. He denies any chest pain, shortness of breath, paroxysmal nocturnal dyspnea, orthopnea, pedal edema or urinary symptoms. He also had COVID infection a while ago.. His last kappa lambda ratio was 1.66. H is urine protein creatinine ratio had improved to 0.16 from over 2 g. His creatinine has gone up marginally.. His Na has been fluctuant. His serum K is on higher side on K lowering medications. He is on ACEI and is closely followed up by Hematology. [facility] Medical History (Updated 02/24/25 @ 21:16 by Yves Navarrete MD) Cervical spondylosis without myelopathy Neuropathic pain Sciatica Thalassanemia Vitamin D deficiency Anemia Hallux valgus History of tear of ACL (anterior cruciate ligament) Osteoarthritis of both knees Venous insufficiency Hyperlipidemia Edema Upper respiratory tract infection Surgical History H/O repair of rotator cuff History of knee surgery Social History Alcohol intake: never Patient Tobacco Use Status: Never used Tobacco Review of Systems Const All systems reviewed & are unremarkable except as noted in HPI and below Physical Exam Vital Signs: Last Vital Signs Pulse 63 08/11/25 16:05 BP 150/80 H 08/11/25 16:05 Pulse Ox 99 08/11/25 16:05 Oxygen Delivery Method Room Air 08/11/25 16:05 BMI result Body Mass Index 25.2 Const General: comfortable and no acute distress Orientation/consciousness: patient oriented x3 HEENT Head: Yes normocephalic Mouth: Normal oral and palatal mucosa present Eyes EOM: EOMs intact bilaterally Neck Neck: Yes supple Resp Auscultation: clear to auscultation bilaterally Cardio Jugular venous distension: no JVD Rate: regular rate GI Palpation (GI): Soft to palpation Auscultation: normal bowel sounds General: Yes no CVA tenderness Back/Spine/Pelvis Back: no CVA tenderness Skin General skin exam: no rashes or lesions noted Neuro General: patient oriented x3 and moves all extremities Extrem General: Yes no pedal edema Results Reviewed Nephrology Results: Sodium, (135-145) 132 mmol/L L 08/09/25 Potassium, (3.3-5.1) 4.8 mmol/L 08/09/25 Chloride, (96-108) 100 mmol/L 08/09/25 Carbon Dioxide, (22-29) 24 mmol/L 08/09/25 BUN, (9-16) 32 mg/dL H 08/09/25 Creatinine, (0.5-1.4) 1.58 mg/dL H 08/09/25 Assessment & Plan Assessment & Plan (1) Hypertension: Code(s): I10 - Essential (primary) hypertension Category: Medical Qualifiers: Hypertension type: primary hypertension Qualified Code(s): I10 - Essential (primary) hypertension (2) Hyponatremia: Code(s): E87.1 - Hypo-osmolality and hyponatremia Category: Medical (3) AL amyloid nephropathy: Code(s): E85.4 - Organ-limited amyloidosis; N08 - Glomerular disorders in diseases cl assified elsewhere Category: Medical (4) CKD (chronic kidney disease) stage 3, GFR 30-59 ml/min: Code(s): N18.30 - Chronic kidney disease, stage 3 unspecified Category: Medical Qualifiers: Chronic kidney disease stage 3 subtype: stage 3b (GFR 30-44) Qualified Code(s): N18.32 - Chronic kidney disease, stage 3b (5) Hyperkalemia: Code(s): E87.5 - Hyperkalemia Category: Medical (6) Anemia in chronic kidney disease (CKD): Code(s): N18.9 - Chronic kidney disease, unspecified; D63.1 - Anemia in chronic kidney disease Category: Medical Qualifiers: Chronic kidney disease stage: stage 3 (moderate) Chronic kidney disease stage 3 subtype: stage 3b (GFR 30-44) Qualified Code(s): N18.32 - Chronic kidney disease, stage 3b; D63.1 - Anemia in chronic kidney disease Plan He has CKD due to renal biopsy proven AL amyloid (lambda phenotype) . He had been getting daratumumab. He was evaluated for stem cell transplant but has been put on hold for now. His stem cell collection was done at [facility]( Dr Gonzalez). He is on lisinopril. I increased his K lowering medication to thrice a week. He had no regional wall motion abnormalities in the ECHO. His left ventricular ejection fraction was 60-65%. His left ventricular systolic function and right ventricular systolic function was normal. ( Renal biopsy showed Diffuse amyloid deposits in glomeruli and renal arteries/ arterioles and focally in interstitium. Global glomerulosclerosis was present in 15% of total glomeruli. He had mild to moderate interstitial fibrosis and tubular atrophy. Electron microscopy showed normal based membrane. There was global effacement of foot process. Endothelial fenestration were preserved. Mesangial matrix was expanded by mildly electron dense material showing randomly arranged fibrillary substructure. Multiple measurements of the fibril widths average to 7.5 nanometer was consistent with amyloid). He had nephrotic range proteinuria which has improved with supportive management. (He was treated with Luanne CyBord per Andromeda study. His Cytoxan dose was reduced by 20% for fatigue and anemia. His Velcade was held for question of neuropathy/ myopathy). He had proximal myopathy and underwent skeletal muscle biopsy which showed amyloid. He is a candidate for [employer] @ next visit . All these have been explained in detail. Answered all questions & follow-up appointment was given Orders: Orders Creatinine 3 Months D63.1 - Anemia in chronic kidney disease, E85.4 - Organ- limited amyloidosis, E87.1 - Hypo-osmolality and hyponatremia, E87.5 - Hyperkalemia, I10 - Essential (primary) hypertension, N08 - Glomerular disorders in diseases classified elsewhere, N18.32 - Chronic kidney disease, stage 3b Electrolytes 3 Months D63.1 - Anemia in chronic kidney disease, E85.4 - Organ- limited amyloidosis, E87.1 - Hypo-osmolality and hyponatremia, E87.5 - Hyperkalemia, I10 - Essential (primary) hypertension, N08 - Glomerular disorders in diseases classified elsewhere, N18.32 - Chronic kidney disease, stage 3b Calcium 3 Months D63.1 - Anemia in chronic kidney disease, E85.4 - Organ- limited amyloidosis, E87.1 - Hypo-osmolality and hyponatremia, E87.5 - Hyperkalemia, I10 - Essential (primary) hypertension, N08 - Glomerular disorders in diseases classified elsewhere, N18.32 - Chronic kidney disease, stage 3b Protein Creatinine Ratio, Ur 3 Months D63.1 - Anemia in chronic kidney disease, E85.4 - Organ-limited amyloidosis, E87.1 - Hypo-osmolality and hyponatremia, E87.5 - Hyperkalemia, I10 - Essential (primary) hypertension, N08 - Glomerular disorders in diseases classified elsewhere, N18.32 - Chronic kidney disease, stage 3b Blood Urea Nitrogen 3 Months D63.1 - Anemia in chronic kidney disease, E85.4 - Organ-limited amyloidosis, E87.1 - Hypo-osmolality and hyponatremia, E87.5 - Hy perkalemia, I10 - Essential (primary) hypertension, N08 - Glomerular disorders in diseases classified elsewhere, N18.32 - Chronic kidney disease, stage 3b Coding Level of Care Code Est Pt Level 4 (62943) Diagnoses Primary hypertension I10 Hypertension type: primary hypertension Hyponatremia E87.1 AL amyloid nephropathy E85.4; N08 Stage 3b chronic kidney disease N18.32 Chronic kidney disease stage 3 subtype: stage 3b (GFR 30-44) Hyperkalemia E87.5 Anemia in stage 3b chronic kidney disease N18.32; D63.1 Chronic kidney disease stage: stage 3 (moderate) Chronic kidney disease stage 3 subtype: stage 3b (GFR 30-44)
[2025-08-11 16:05] VITALS: BP 150/80; PULSE 63; O2SAT 99; BMI 25.2
--- OUTSIDE RECORDS SUMMARY | 2025-08-11 19:29 | XMS_ITS | Encounter Summary ---
Author Organization [facility] Address [address] [facility] [address] [place] [address] Phone Care Team Providers Care Soil Conservation Teacher Name Role Phone Boris Tyson MD Primary Care Provider [phone] Nai Niño MD Unavailable [phone] Michelle Huerta Unavailable Anne Marie [email or web address] Encounter Details Date Type Department Care Team (Late st Contact Info) Description 10/24/2023 Documentation [facility], Division of Hematologic Oncology, [facility] [address], [address]th [place] [address] Maribel Jerry, RN [address] [facility] [place] [address] Carlos [email or web address] Social History Tobacco Use Types Packs/Day [...] documentation of Alo Rogers. Juve Gonzalez MD Streaming Media Specialist, [employer] Adjunct Art History Instructor, [facility] Amyloidosis Ceramic Products Sales Engineer Physician, Division of Hematology [facility] Pager: [phone] Clinic (ext 3) Clinic documented in this encounter Plan of Treatment Upcoming Encounters Date Type Department Care Team (Late st Contact Info) Description 08/23/2025 1:30 PM EDT Blood Draw Laboratory Services, [address], 2nd [place] [address] Juve Gonzalez MD [address] [place] [phone] [email or web address] 08/23/2025 2:30 PM EDT Office Visit [facility], Division of Hematologic Oncology, [address], 7th [place] [address] Juve Gonzalez MD [address] [place] [phone] [email or web address] 02/15/2026 10:45 AM EDT Office Visit [facility] [address] 1st [place] [address] Yu Elias MD [address] [place] [address], [address] [place] [address] [email or web address] documented as of this encounter Visit Diagnoses Not on filedocumented in this encounter Care Teams Soil Conservation Teacher Relationship Specialty Start Date End Date Boris Tyson MD [address] [facility] [address] [place] [address] PCP - General Internal Medicine 06/25/23 Nai Niño MD [address] [facility] Hematology [place] [address] [email or web address] Internal Medicine 08/05/23 Michelle Huerta [address] [facility] Hematology [place] [address] [email or web address] Manufacturing Worker 09/09/23 documented as of this encounter Additional Source Comments The information contained in this document represents components of the legal health record. It is not the complete legal health record.[facility]
--- OUTSIDE RECORDS SUMMARY | 2025-08-11 19:29 | XMS_ITS | Encounter Summary ---
Author Organization [facility] Address [address] [facility] [address] [place] [address] Phone Care Team Providers Care Director Patient Financial Services Name Role Phone Pcp, Not Required Primary Care Provider Boris Lomax MD Primary Care Provider Nai Niño MD Unavailable [phone] Michelle Huerta Unavailable Anne Marie [email or web address] U Encounter Details Date Type Department Care Team ([facility] st Contact Info) Description 05/29/2021 Ophth Exam [facility] [address] [place] [address] Kyaw Green MD [address] [place] [address] [email or web address] Social History Tobacco Use Types Packs/Day [...] 12:31 PM EDT Jackelyn Stevens, RN * [place] Suicide Severity Rating Scale (Screener/Recent Self-Report) Question Answer Date of Assessment Author 1. Wish to be (Past 1 Month) No 021 12:31 PM EDT Jackelyn Wilkerson, RN 2. Non-Specific Active Suici chsa Thoughts (Past 1 Month) No 05/29/2021 12:31 PM EDT Naa Wilkerson, RN 6. Suicidal Behavior (Lifetime) No 12:31 PM EDT Jackelyn Wilekrson, RN documented as of this encounter Plan of Treatment Upcoming Encounters Date Type Department Care Team (Late st Contact Info) Description 08/23/2025 1:30 PM EDT Blood Draw Laboratory Services, [address], 2nd [place] [address] Juve Gonzalez MD [address] [place] [phone] [email or web address] 08/23/2025 2:30 PM EDT Office Visit [facility], Division of Hematologic Oncology, [address], [address] [place] [address] Juve Gonzalez MD [address] [place] [phone] [email or web address] 02/15/2026 10:45 AM EDT Office Visit [address] 1st [place] [address] Yu Elias MD [address] [place] [address], [address] [address] [email or web address] documented as of this encounter Visit Diagnoses Not on filedocumented in this encounter Care Teams Director Patient Financial Services Relationship Specialty Start Date End Date Pcp, Not Required [address] [place] [address] PCP - General 05/29/21 06/24/23 Boris Tyson MD [address] [place] [address] PCP - General Internal Medicine 06/25/23 Nai Niño MD [facility] [place] [address] [email or web address] Internal Medicine 08/05/23 Michelle Huerta [facility] [place] [address] [email or web address]. [facility] Automotive Product Specialist 09/09/23 documented as of this encounter Additional Source Comments The information contained in this document represents components of the legal health record. It is not the complete legal health record.[facility]
--- OUTSIDE RECORDS SUMMARY | 2025-08-11 19:29 | XMS_ITS | Clinical Summary ---
Author Organization [facility] Address [address] [place] [address] Phone Care Team Providers Care Telephone Solicitor Name Role Phone Boris Tyson MD Primary Care Provider [phone] Nai Niño MD Unavailable [phone] Michelle Huerta Unavailable Anne Marie [email or web address] Allergies Active Allergy Reactions Criticality Noted [...] locally. Harvesting will take place at the [facility] Blood donor center. We are checking [...] 1:30 PM EDT Blood Draw Laboratory Services, [address], 2nd [place] [address] Juve Gonzalez MD [address] [place] [phone] [email or web address] 08/23/2025 2:30 PM EDT Office Visit [facility], Division of Hematologic Oncology, [address], [address]th [place] [address] Juve Gonzalez MD [address] [place] [address] [email or web address] 02/15/2026 10:45 AM EDT Office Visit [address] 1st [place] [address] Yu Elias MD [address] [place] [address], [address] [place] [phone] [email or web address] Health Maintenance Due Date Last [...] EDT) SODIUM 126(L) 136 - 145 mmol/L [facility] LIC# [id number] POTASSIUM 5.7(H) 3.4 - 5.1 mmol/L [facility] LIC# [id number] CHLORIDE 95(L) 98 - 107 mmol/L [facility] LIC# [id number] CO2 23 22 - 31 mmol/L [facility] LIC# [id number] BUN 29(H) 6 - 23 mg/dL [facility] LIC# [id number] CREATININE 1.76(H) 0.50 - 1.20 mg/dL [facility] LIC# [id number] GLUCOSE 112(H) 70 - 100 mg/dL [facility] LIC# [id number] ALBUMIN 4.1 3.5 - 5.2 g/dL [facility] LIC# [id number] TOTAL PROTEIN 6.1(L) 6.4 - 8.3 g/dL [facility] LIC# [id number] CALCIUM 9.0 8.8 - 10.7 mg/dL [facility] LIC# [id number] ALKALINE PHOSPHATASE 66 40 - 129 U/L [facility] LIC# [id number] TOTAL BILIRUBIN 0.5 0.2 - 1.2 mg/dL [facility] LIC# [id number] AST 17 <41 U/L [facility] LIC# [id number] ALT 11 <42 U/L [facility] LIC# [id number] GLOBULIN 2.0(L) 2.3 - 4.2 g/dL [facility] LIC# [id number] EGFR 42(L) >59 mL/min/1.7 3m2 [facility] LIC# [id number] Comment:Estimated glomerular filtration rate calculated using the CKD-EPI refit equation. ANION GAP 8 7 - 17 mmol/L [facility] LIC# [id number] Blood 02/22/2025 1:08 PM EDT 02/22/2025 1:14 PM EDT us Juve Gonzalez MD LAB BLOOD ORDERABLES Final Resu lt [facility] LIC# [id number] [address] [place], [place] [id number] * (ABNORMAL) Lipid panel (08/05/2023 1:05 PM EDT) CHOLESTEROL 222(H) <200 mg/dL [facility] LIC# [id number] TRIGLYCERIDES 89 35 - 150 mg/dL [facility] LIC# [id number] HDL 57 40 - 80 mg/dL [facility] LIC# [id number] CALCULATED LDL 147(H) 50 - 129 mg/dL [facility] LIC# [id number] VLDL 18 <31 mg/dL [facility] LIC# [id number] CARDIAC RISK RATIO 3.9 0.0 - 5.0 D [facility] LIC# [id number] Blood 08/05/2023 1:05 PM EDT 08/05/2023 1:19 PM EDT Juve Gonzalez MD LAB BLOOD ORDERABLES Final Resu lt [facility] LIC# [id number] [address] [place] [address] from Last 3 Months or Most Recently Relevant to Health Maintenance Insurance [employer] [place] [address] [place] [address] POS EPO POS EPO POS EPO [facility] POS EPO [facility] POS EPO Care Teams Telephone Solicitor Relationship Specialty Start Date End Date Boris Tyson MD [address] [facility] [address] [place] [address] PCP - General Internal Medicine 06/25/23 Nai Niño MD [address] [facility] [place] [address] [email or web address] Internal Medicine 08/05/23 Michelle Huerta [address] [facility] [place] [address] [email or web address] Well Tester 09/09/23 Additional Source Comments The information contained in this document represents components of the legal health record. It is not the complete legal health record.[facility]
--- OUTSIDE RECORDS SUMMARY | 2025-08-11 19:29 | XMS_ITS | Encounter Summary ---
Author Organization [facility] Address [address] [place] [address] [place] [address] Phone Care Team Providers Care Drill Presser Name Role Phone Boris Tyson MD Primary Care Provider [phone] Nai Niño MD Unavailable [phone] Michelle Huerta Unavailable Anne Marie [email or web address] Encounter Details Date Type Department Care Team (Late Contact Info) Description 09/03/2023 Procedure Pass [facility] Echocardiography [address] [place] [address] Social History Tobacco Use Types Packs/Day Years [...] 1:30 PM EDT Blood Draw Laboratory Services, [facility] [address] [facility], 2nd [place] [address] Juve Gonzalez MD [address] [place] [address] [address] [place] [address] [email or web address] 08/23/2025 2:30 PM EDT Office Visit [facility], Division of Hematologic Oncology, [address] [place] [address] Juve Gonzalez MD [address] [place] [address] [address] [place] [address] [email or web address] 02/15/2026 10:45 AM EDT Office Visit [address] 1st [place] [address] Yu Elias MD [address] [place] [address], [address] [place] [address] [email or web address] documented as of this encounter Visit Diagnoses Not on filedocumented in this encounter Care Teams Drill Presser Relationship Specialty Start Date End Date Boris Tyson MD [address] [place] [address] [address] [place] [address] PCP - General Internal Medicine 06/25/23 Nai Niño MD [address] [place] [address] [place] [address] [email or web address] Internal Medicine 08/05/23 Michelle Huerta [address] [place] [address] [place] [address] [email or web address] Front Office Help 09/09/23 documented as of this encounter Additional Source Comments The information contained in this document represents components of the legal health record. It is not the complete legal health record.[facility]
--- OUTSIDE RECORDS SUMMARY | 2025-08-11 19:29 | XMS_ITS | Clinical Summary ---
Author Organization 175 [facility] Address 175 [place] [address] Phone Care Team Providers Care Wafer Production Worker Name Role Phone Boris Tyson MD Primary Care Provider Allergies Active Allergy Reactions Criticality Noted Date [...] Encounters Date Type Department Care Team Description 06/17/2025 Telephone Internal Medicine - [address] [place] [address] Chris Hawk MA 06/15/2025 Telephone [facility] [address] [place] [address] Boris Tyson MD from Last 3 Months Immunizations Immunization Administration Dates Next Due Influenza Quadravalent, MDCK [...] HISTORICAL KNEE SURGERY; COMMENT: ACL tear at [facility] Medical History Medical History Date [...] for your loved ones. For example, children's minister or elderly care for an older adult? [...] Date Recorded What is your living situation? Unrecognized valu e 10/25/2024 Sex and Gender Information Value Date Recorded [...] AM EST Office Visit Internal Medicine - Center [address] [facility] [address] [place] [phone] Boris Tyson MD 175 [facility] [address] [place] [address] Health Maintenance Due Date Last Done Comments [...] Test (02/03/2024) Annual BMP Blood Test Abstracted [facility] Provider HEALTH MAINTENANCE Final Result * External Colonoscopy Report (10/02/2023 9:03 AM EST) Anatomical Region Laterality Modality Endoscopy [facility] Provider GI~PROCEDURE ORDERABLES F inal Result * Lipid panel (08/05/2023) Triglycerides 0 mg/dL Comment:No interpretation, A bstracted Cholesterol 0 mg/dL Comment:No interpretation, A bstracted HDL 0 mg/dL Comment:No interpretation, A bstracted LDL Cholesterol 0 mg/dL Comment:No interpretation, A bstracted Blood Venous blood specimen / Unknown [facility] Provider LAB BLOOD ORDERABLES Olamdie l Result from Last 3 Months or Most Recently Relevant to Health Maintenance Insurance [employer] Care Teams Wafer Production Worker Relationship Specialty Start Date End Date Boris Tyson MD [address] [address] PCP - General Internal Medicine 11/03/18
--- OUTSIDE RECORDS SUMMARY | 2025-08-11 19:29 | XMS_ITS | Encounter Summary ---
Author Organization [facility] Address [address] [facility] [address] [place] [address] Phone Care Team Providers Care Dairy Nutrition Consultant Name Role Phone Boris Tyson MD Primary Care Provider Nai Niño MD Unavailable [phone] Michelle Huerta Unavailable Anne Marie [email or web address] U Encounter Details Date Type Department Care Team (Late st Contact Info) Description 09/02/2023 Documentation Central Registration, [facility] [place] [address] [facility], 2nd [place] [address] Astrid Mirza [address] [place], [place] [id number] [email or web address] Social History Tobacco Use Types Packs/Day [...] 1:30 PM EDT [facility], [address], 2nd [place] [address] Juve Gonzalez MD [address] [place] [address] [address] [place] [address] [email or web address] 08/23/2025 2:30 PM EDT Office Visit [facility], Division of Hematologic Oncology, [address], 7th [place] [address] Juve Gonzalez MD [address] [place] [address] [email or web address] 02/15/2026 10:45 AM EDT Office Visit [facility] [address] [facility] 1st [place] [address] Yu Elias MD [address] [place] [address], [address] [address] Maryam@[facility] documented as of this encounter Visit Diagnoses Not on filedocumented in this encounter Care Teams Dairy Nutrition Consultant Relationship Specialty Start Date End Date Boris Tyson MD 175 [facility] [address] [place] [address] PCP - General Internal Medicine 06/25/23 Nai Niño MD [address] [place] [address] [place] [address] [email or web address] Internal Medicine 08/05/23 Michelle Huerta [address] [facility] [place] [address] [email or web address]. [facility] Marketing Operations Assistant 09/09/23 documented as of this encounter Additional Source Comments The information contained in this document represents components of the legal health record. It is not the complete legal health record.[facility]
--- OUTSIDE RECORDS SUMMARY | 2025-08-11 19:29 | XMS_ITS | Encounter Summary ---
Author Organization [facility] Address [address] [employer] [address] [place] [address] Phone Care Team Providers Care Tile Finisher Name Role Phone Boris Tyson MD Primary Care Provider [phone] Nai Niño MD Unavailable Michelle Huerta Unavailable Anne Marie [email or web address]. U Encounter Details Date Type Department Care Team (Late st Contact Info) Description 10/24/2023 Documentation [facility], Division of Hematologic Oncology, [facility] [facility] [place] [address] [facility], 7th [place] [address] Maribel Jerry, RN [address] [facility] [place] [address] Carlos [email or web address] Social History Tobacco Use Types Packs/Day [...] 1:30 PM EDT Blood Draw Laboratory Services, [address], 2nd [place] [address] Juve Gonzalez MD [address] [place] [address] 223 [place] [address] [email or web address] 08/23/2025 2:30 PM EDT Office Visit [facility], Division of Hematologic Oncology, [address], [address] [place] [address] Juve Gonzalez MD [address] [place] [address] [email or web address] 02/15/2026 10:45 AM EDT Office Visit [facility] [address] [facility] 1st [place] [address] Yu Elias MD [address] [place] [address], [address] [address] [email or web address] documented as of this encounter Visit Diagnoses Not on filedocumented in this encounter Care Teams Tile Finisher Relationship Specialty Start Date End Date Boris Tyson MD 175 [facility] [address] [place] [address] PCP - General Internal Medicine 06/25/23 Nai Niño MD [address] [place] [address] [place] [address] [email or web address] Internal Medicine 08/05/23 Michelle Huerta 33[address] [facility] [place] [address] [email or web address]. [facility] Leather Etcher 09/09/23 documented as of this encounter Additional Source Comments The information contained in this document represents components of the legal health record. It is not the complete legal health record.[facility]
--- OUTSIDE RECORDS SUMMARY | 2025-08-11 19:29 | XMS_ITS | Encounter Summary ---
Author Organization [facility] Address [address] [facility] [address] [place] [address] Phone Care Team Providers Care Verify Rep Name Role Phone Boris Tyson MD Primary Care Provider [phone] Nai Niño MD Unavailable [phone] Michelle Huerta Unavailable Anne Marie [email or web address]. U Encounter Details Date Type Department Care Team (Late st Contact Info) Description 10/24/2023 Documentation [facility], Division of Hematologic Oncology, [facility] [place] [facility] [place] 450 [facility], 7th [place] [address] Maribel Jerry, RN [address] [facility] [address] Carlos [email or web address] Social History Tobacco Use [...] , , [place] Black, South or Central [place] Black, or Other Black? OR is the donor from the [place], [place], or Southeast Анна?: Yes.Please explain: Does [...] hematology/oncology team. Lillian Jin MS, [employer] Physician Engineering Teacher Hematologic Malignancies and Stem Cell Transplant (t) [phone], pager#[phone] documented in this encounter Plan of Treatment Upcoming Encounters Date Type Department Care Team (Late st Contact Info) Description 08/23/2025 1:30 PM EDT Blood Draw Laboratory Services, [address], 2nd [place] [address] Juve Gonzalez MD [address] [place] [phone] [email or web address] 08/23/2025 2:30 PM EDT Office Visit [facility], Division of Hematologic Oncology, [address], 7th [place] [address] Juve Gonzalez MD [address] [place] [address] ARELY@[facility] 02/15/2026 10:45 AM EDT Office Visit [address] 1st [place] [address] Yu Elias MD [address] [place] [address], [address] [place] [address] Maryam@[facility] documented as of this encounter Visit Diagnoses Diagnosis Autologous donor of stem cells- Primary documented in this encounter Care Teams Verify Rep Relationship Specialty Start Date End Date Boris Tyson MD [address] [place] [address] PCP - General Internal Medicine 06/25/23 Nai Niño MD [address] [facility] [place] [address] [email or web address] Internal Medicine 08/05/23 Michelle Huerta [address] [facility] [place] [address] [email or web address]. [facility] Primer Expeditor And Drier 09/09/23 documented as of this encounter Additional Source Comments The information contained in this document represents components of the legal health record. It is not the complete legal health record.[facility]
--- OUTSIDE RECORDS SUMMARY | 2025-08-11 19:29 | XMS_ITS | Encounter Summary ---
Author Organization [facility] Address [address] [facility] [address] [place] [address] Phone Care Team Providers Care Appellate Court Judge Name Role Phone Boris Tyson MD Primary Care Provider [phone] Nai Niño MD Unavailable [phone] Michelle Huerta Unavailable Anne Marie [email or web address]. U Encounter Details Date Type Department Care Team (Late st Contact Info) Description 10/22/2023 Documentation [facility], Division of Hematologic Oncology, [facility] [facility] [place] [address] [facility], 7th [place] [address] Maribel Jerry, RN 440 [facility] [place] [address] Carlos [email or web address] Social History Tobacco Use Types [...] 1:30 PM EDT Blood Draw Laboratory Services, [address], 2nd [place] [address] Juve Gonzalez MD [address] [place] [address] 223 [place] [address] [email or web address] 08/23/2025 2:30 PM EDT Office Visit [facility], Division of Hematologic Oncology, [address], 7th [place] [address] Juve Gonzalez MD [address] [place] [address] [email or web address]@[email or web address] 02/15/2026 10:45 AM EDT Office Visit [facility] [address] [facility] 1st [place] [address] Yu Elias MD [address] [place] [address], [address] [address] Maryam@[email or web address] documented as of this encounter Visit Diagnoses Not on filedocumented in this encounter Care Teams Appellate Court Judge Relationship Specialty Start Date End Date Boris Tyson MD 175 [facility] [address] [place] [address] PCP - General Internal Medicine 06/25/23 Nai Niño MD [address] [place] [address] [place] [address] [email or web address] Internal Medicine 08/05/23 Michelle Huerta [address] [facility] [place] [address] [email or web address]. [facility] Rotary Engraver 09/09/23 documented as of this encounter Additional Source Comments The information contained in this document represents components of the legal health record. It is not the complete legal health record.[facility]
--- OUTSIDE RECORDS SUMMARY | 2025-08-11 19:29 | XMS_ITS | Clinical Summary ---
Author Organization [facility] Address [address] [place] [address] Care Team Providers Care Transitional Care Manager Name Role Phone Boris Tyson MD [...] Group Subscriber ID Effective Dates Phone Address [facility] [id number] 2021-Present 1 [facility] [address] [place] [address] [facility] Care Teams Transitional Care Manager Relationship Specialty Start Date End Date Boris Tyson MD PCP - General Internal Medicine 03/18/22
--- OUTSIDE RECORDS SUMMARY | 2025-08-11 19:30 | XMS_ITS | Encounter Summary ---
Author Organization [facility] Address [address] [place] [address] Phone Care Team Providers Care Nitrating Acid Mixer Name Role Phone Boris Tyson MD Primary Care Provider Nai Niño MD Unavailable [phone] Michelle Huerta Unavailable Anne Marie [email or web address]. U Encounter Details Date Type Department Care Team (Late st Contact Info) Description 11/07/2023 Documentation [facility] [address] [address] Nash Whiteside PA-C 35 [place] [address] [email or web address] Social History Tobacco Use Types Packs/Day [...] Apheresis Collection Suitability Name: Alo Ignacio MRN: ?[id number] Indication: ?auto HPC Tentative Collection Date: ?11/12/23 Date of mobilization: 11/08/23 Has the donor been tested for evidence of communicable infectious diseases in accordance with FDA/AABB guidelines: ?yes ? Relevant Past Medical History: ?Cardiac (Atrial fibrillation or flutter, sick sinus syndrome, or ventricular arrhythmias, CAD/CO, CHF, HTN, heart valve disease, diastolic dysfunction, [...] records. Nash Whiteside PA-C Transfusion Medicine [facility] Transfusion Medicine Pager: [phone] documented in this encounter Plan of Treatment Upcoming Encounters Date Type Department Care Team (Late st Contact Info) Description 08/23/2025 1:30 PM EDT Blood Draw Laboratory Services, [facility] [place] [address] [place] [address], 2nd [place] [address] Juve Gonzalez MD [address] [place] [address] [email or web address] 08/23/2025 2:30 PM EDT Office Visit [facility], Division of Hematologic Oncology, [facility] [place] [address] [facility], 7th [place] [address] Juve Gonzalez MD [address] [place] [address] 223 [place] [address] [email or web address] 02/15/2026 10:45 AM EDT Office Visit [facility] 243 [facility] 1st [place] [address] Yu Elias MD [address] [place] [address], [address] [place] [address] Maryam@[facility] documented as of this encounter Visit Diagnoses Not on filedocumented in this encounter Care Teams Nitrating Acid Mixer Relationship Specialty Start Date End Date Boris Tyson MD 175 [facility] [address] [place] [address] PCP - General Internal Medicine 06/25/23 Nai [place]ño [place] [address] [place] [address] [place] [address] [email or web address] Internal Medicine 08/05/23 Michelle Huerta [address] [facility] [place] [address] [email or web address]. [email or web address].EDU Experience Designer 09/09/23 documented as of this encounter Additional Source Comments The information contained in this document represents components of the legal health record. It is not the complete legal health record.[facility]
== END 2025-08-11 16:32 | disposition home or self-care (01) ==
LOC: HO.HKAS 15:48
PROVIDERS: PCP Internal Medicine; Visit Provider Internal Medicine Nephrology
DX: I10 Essential (primary) hypertension (principal); E87.1 Hypo-osmolality and hyponatremia; E85.4 Organ-limited amyloidosis; N08 Glomerular disorders in diseases classified elsewhere; N18.32 Chronic kidney disease, stage 3b; E87.5 Hyperkalemia; D63.1 Anemia in chronic kidney disease
CPT/HCPCS: 99214